=== PATIENT | male | born 1935 | race Caucasian/White ===

== ENCOUNTER → 2017-06-12 | Outpatient (CLI) | payer MEDICARE ==
[2014-09-18 02:22] VITALS: BP 144/75
[~2017-06-12] MED LIST: AMLO5TAB2 PO; ATORVASTATIN CA80 MG PO; FLUT16SP21 NS; GABA-585 PO; INSU100I11 SQ; LORA10TA3 PO; LOSA1TAB25 PO; METO-239 PO; TRIA15CR50 TP
--- NOTE | 2017-06-12 17:13 | RAD ---
CT study of the right foot without contrast Clinical indications: Open wound of the right foot. Technique: Noncontrast helical CT scanning of the right foot was performed. Multiplane 2-D reconstructions were generated. PQRS Compliance Statement: One or more of the following individualized dose reduction techniques were utilized for this examination: 1. Automated exposure control 2. Adjustment of the mA and/or kV according to patient size 3. Use of iterative reconstruction technique Comparison: No previous CT or MRI available. Findings: Fourth and fifth digits have been amputated at the level of the distal metatarsals. No osteolytic process is seen. Generalized osteopenia is evident. No acute fracture or dislocation is evident. Small plantar spur of the calcaneus is seen. Calcification of the plantar fascia is seen which may represent plantar fasciitis. Plantar fascia appears intact. The Achilles tendon appears intact. No tenosynovitis is seen. No soft tissue abscess or soft tissue mass is evident. There is subcutaneous soft tissue edema more prominently seen dorsally which may be secondary to cellulitis. IMPRESSION: Dorsal cellulitis. No osteomyelitis or soft tissue abscess is seen.
== END | disposition home or self-care (01) ==
LOC: CT 15:07
PROVIDERS: ATTEND Nurse Practitioner Family
DX: S91.301A Unspecified open wound, right foot, initial encounter (principal); L03.818 Cellulitis of other sites; M85.871 Other specified disorders of bone density and structure, right ankle and foot; M77.31 Calcaneal spur, right foot; X58.XXXA Exposure to other specified factors, initial encounter; Y93.89 Activity, other specified; Y92.89 Other specified places as the place of occurrence of the external cause; Y99.8 Other external cause status
CPT/HCPCS: 73700

== ENCOUNTER → 2017-08-05 | Outpatient (CLI) | payer MEDICARE ==
[2014-09-18 02:22] VITALS: BP 144/75
--- NOTE | 2017-08-05 16:28 | RAD ---
CT study of the soft tissues of the neck without contrast Clinical indications: Neck pain. Patient cannot turn the neck. Technique: Noncontrast helical CT scanning of the soft tissues of the neck from the base of skull down to the lung apices was performed. Without contrast, the sensitivity to detect organ pathology is decreased. PQRS Compliance Statement: One or more of the following individualized dose reduction techniques were utilized for this examination: 1. Automated exposure control 2. Adjustment of the mA and/or kV according to patient size 3. Use of iterative reconstruction technique Comparison: None available. Findings: No thyroid gland mass is seen. No soft tissue mass or enlarged cervical lymphadenopathy is evident. The parotid and submandibular salivary glands are unremarkable. The true and false focal cords and epiglottis and aryepiglottic folds and preepiglottic fat space are unremarkable. No prevertebral soft tissue swelling or soft tissue abscess is seen. The adenoids are not abnormally thickened. No abnormality of the palatine tonsils is seen. No lung apical infiltrate is seen. No osteolytic process is seen. There is mild mucosal thickening of the floor of the left maxillary sinus which measures 10 mm in thickness. Minimal mucosal thickening of the floor of the right axillary sinus is seen. IMPRESSION: Unremarkable study.
== END | disposition home or self-care (01) ==
LOC: CT 12:52
PROVIDERS: ATTEND Specialist
DX: M54.2 Cervicalgia (principal)
CPT/HCPCS: 70490

== ENCOUNTER 2018-05-14 08:10 | Inpatient (IN) | payer MEDICARE ==
[~2018-05-14] VITALS: Ht 180.3 cm; Wt 78.5 kg
[~2018-05-14 08:10] MED LIST changes: -AMLO5TAB2 PO; +AMLO5TAB7 PO
[2018-05-14] MEDS ORDERED: IV NORMAL SALINE 1,000ML 1,000 ML IV ONE (08:15)
[2018-05-14] MEDS ORDERED: METO25TA2 PO (08:30)
[2018-05-14] MEDS ORDERED: LOSA100T7 PO (08:31)
[2018-05-14] MEDS ORDERED: HYDR12.58 PO (08:31)
[2018-05-14] MEDS ORDERED: AMLO10TA6 PO (08:32)
[2018-05-14] MEDS ORDERED: GABA600T2 PO (08:33)
[2018-05-14] MEDS ORDERED: GABA-585 PO (08:33)
[2018-05-14] MEDS ORDERED: ASPI-630 PO (08:34)
--- NOTE | 2018-05-14 08:34 | PHYS DOC ---
Past History Past Medical History: Diabetes, High Cholesterol, Hypertension Past Surgical History: Other Alcohol Use: None Drug Use: None Adult General Chief Complaint Chief Complaint: fall HPI HPI 83-year-old male presents via EMS for suspected fall at home. History is provided by the patient and EMS. The patient was noted to be at baseline at 9 PM last night. His son checked on him and (8:30. The patient had not taken his evening meds at that time. EMS notes he did not take his meds last night or this morning. When the son went back to check on him this morning, he found him on the floor, he called EMS. When EMS arrived they the patient seemed to be just in front of his wheelchair. It appears as though he fell out of his wheelchair coming out of the bathroom. There is urine on his clothing. The patient was alert and able to answer some questions. When I talk to the patient he knows his name, location, month and year. He states he is unsure what happened this morning. I asked him with the first thing he remembers this morning was any since waking up in his bed. Patient reports at the scene seems unlikely that he fell after waking up this morning. He appeared to have been on the floor for some time. He denies any pain, shortness of breath, chest pain. The patient lives at home with his . His does admit to the hospital a few days ago as he is home alone overnight. His son tells me that he fell 3 times yesterday without injury. Review of Systems Review of Systems Constitutional: Denies fever or chills [] Eyes: Denies change in visual acuity, redness, or eye pain [] HENT: Denies nasal congestion or sore throat [] Respiratory: Denies cough or shortness of breath [] Cardiovascular: No additional information not addressed in HPI [] GI: Denies abdominal pain, nausea, vomiting, bloody stools or diarrhea [] : Denies dysuria or hematuria [] Musculoskeletal: Denies back pain or joint pain [] Integument: Denies rash or skin lesions [] Neurologic: Denies headache, focal weakness or sensory changes [] Endocrine: Denies polyuria or polydipsia [] All other systems were reviewed and found to be within normal limits, except as documented in this note. Current Medications Current Medications Current Medications Medications (Trade) Dose Ordered Sig/Amber Start Time Stop Time Status Last Admin Dose Admin Sodium Chloride 1,000 ml @ 1,000 mls/hr 1X ONCE 05/14/18 08:15 05/14/18 09:14 UNV Allergies Allergies Allergies Coded Allergies Type Severity Reaction Last Updated Verified No Known Drug Allergies 09/18/14 No Physical Exam Physical Exam Constitutional: Well developed, well nourished, no acute distress, non-toxic appearance. [] HENT: Normocephalic, atraumatic, bilateral external ears normal, oropharynx moist, no oral exudates, nose normal. [] Eyes: PERRLA, EOMI, conjunctiva normal, no discharge. [] Neck: Normal range of motion, no tenderness, supple, no stridor. [] Cardiovascular:Heart rate regular rhythm, no murmur [] Lungs & Thorax: Bilateral breath sounds clear to auscultation [] Abdomen: Bowel sounds normal, soft, no tenderness, no masses, no pulsatile masses. [] Skin: Warm, dry, no erythema, no rash. [] Back: No tenderness, no CVA tenderness. [] Extremities: Left leg [id number] amputation. Right lower leg superficial skin breakdown[] Neurologic: Alert and oriented X 3, normal motor function, normal sensory function, no focal deficits noted. [] Psychologic: Affect normal, mood normal. [] EKG EKG Sinus rhythm, rate 88, left axis, no ST elevations or depressions.[] Radiology/Procedures Radiology/Procedures [] Impressions: CT head without intravenous contrast History: Fall previous day, altered mental status. Comparison: CT head October 18, 2011. Technique: Axial images are obtained of the head from the skull base through the vertex without IV contrast. Exposure: One or more of the following individualized dose reduction techniques were utilized for this examination: 1. Automated exposure control 2. Adjustment of the mA and/or kV according to patient size 3. Use of iterative reconstruction technique Findings: The ventricles are appropriate in size, shape, and location for the patient's age. No obvious intracranial mass, mass-effect, midline shift, hemorrhage or obvious acute infarction is identified. Basilar cisterns are patent. Patchy, nonspecific white matter low-attenuation seen, probably from chronic microvascular ischemic disease. Bone windows demonstrate no acute calvarial abnormality. Mild ethmoid and maxillary sinus mucosal disease is seen. Impression: 1. No acute intracranial process. Please note that CT can be relatively insensitive to acute ischemic infarction for up to 24 hours after symptom onset. 2. Nonspecific white matter changes, probably from chronic microvascular ischemic disease. Electronically signed by: Rashel Chin MD (05/14/2018 9:12 AM) [place] [id number] DICTATED AND SIGNED BY: RASHEL CHIN MD DATE: 05/14/18 0908 CC: TRAY WALTON DO; HAYES WILLIAMSON MD ~ Portable chest, 05/14/2018: HISTORY: Fall Comparison is made to a study from 10/27/2010. There has been a previous median sternotomy. The patient is rotated to the left. The heart size and pulmonary vascularity are normal. There is a gas-containing retrocardiac density just left of midline suggesting a hiatal hernia. No pulmonary consolidation is seen. There is no evidence of pleural fluid or pneumothorax. The bony structures are demineralized. IMPRESSION: 1. Probable small hiatal hernia. 2. No acute cardiopulmonary abnormality is detected. Electronically signed by: Cecilio Rand MD (05/14/2018 9:13 AM) [facility] DICTATED AND SIGNED BY: CECILIO RAND MD DATE: 05/14/1811 CC: TRAY WALTON DO; HAYES WILLIAMSON MD Course & Med Decision Making Course & Med Decision Making Pertinent Labs and Imaging studies reviewed. (See chart for details) The patient's EKG is unremarkable. His labs show a hemoglobin of 7.9. My only previous for comparison is 3 years ago and it was 12.6. His urinalysis is suggestive of infection. I will treat with 1 g of Rocephin in the ED. Patient is very sleepy. I discussed the case with Dr. Morley and he has accepted the patient for admission. The patient's CK is 1338. He was given 1L normal saline in the ED. [] Dragon Disclaimer Dragon Disclaimer This electronic medical record was generated, in whole or in part, using a voice recognition dictation system. Departure Departure: Referrals: HAYES WILLIAMSON MD (PCP) TRAY WALTON DO May 14, 2018 08:33
--- NOTE | 2018-05-14 08:36 | EKG ---
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 Electronically Signed On 05-14-2018 9:55:39 MEDIA SERVICES COORDINATOR by Esteban Anderson
[2018-05-14 08:53] LABS: BASO % 1 % (0-3); EOS # 0.1 x10^3/uL (0.0-0.7); EOS % 1 % (0-3); HEMATOCRIT 25.4 % (39.0-53.0); HEMOGLOBIN 7.9 g/dL (13.0-17.5); LYMPH # 0.7 x10^3/uL (1.0-4.8); LYMPH % 9 % (24-48); MEAN CORPUSCULAR HEMOGLOBIN 21 pg (25-35); MEAN CORPUSCULAR HGB CONC 31 g/dL (31-37); MEAN CORPUSCULAR VOLUME 68 fL (79-100); MONO # 0.6 x10^3/uL (0.0-1.1); MONO % 8 % (0-9); NEUT # 6.7 x10^3uL (1.8-7.7); NEUT % 82 % (31-73); PLATELET COUNT 280 x10^3/uL (140-400); RED BLOOD COUNT 3.73 x10^6/uL (4.30-5.70); RED CELL DISTRIBUTION WIDTH 18.4 % (11.5-14.5); WHITE BLOOD COUNT 8.2 x10^3/uL (4.0-11.0)
[2018-05-14 09:05] LABS: ALBUMIN 3.3 g/dL (3.4-5.0); ALBUMIN/GLOBULIN RATIO 0.9 (1.0-1.7); CALCIUM 8.3 mg/dL (8.5-10.1); CREATININE 1.1 mg/dL (0.7-1.3); GFR 64.1; POTASSIUM 3.5 mmol/L (3.5-5.1); TOTAL BILIRUBIN 0.4 mg/dL (0.2-1.0); TOTAL PROTEIN 7.1 g/dL (6.4-8.2)
--- NOTE | 2018-05-14 09:15 | RAD ---
CT head without intravenous contrast History: Fall previous day, altered mental status. Comparison: CT head October 18, 2011. Technique: Axial images are obtained of the head from the skull base through the vertex without IV contrast. Exposure: One or more of the following individualized dose reduction techniques were utilized for this examination: 1. Automated exposure control 2. Adjustment of the mA and/or kV according to patient size 3. Use of iterative reconstruction technique Findings: The ventricles are appropriate in size, shape, and location for the patient's age. No obvious intracranial mass, mass-effect, midline shift, hemorrhage or obvious acute infarction is identified. Basilar cisterns are patent. Patchy, nonspecific white matter low-attenuation seen, probably from chronic microvascular ischemic disease. Bone windows demonstrate no acute calvarial abnormality. Mild ethmoid and maxillary sinus mucosal disease is seen. Impression: 1. No acute intracranial process. Please note that CT can be relatively insensitive to acute ischemic infarction for up to 24 hours after symptom onset. 2. Nonspecific white matter changes, probably from chronic microvascular ischemic disease. Electronically signed by: Rashel Boyle MD (05/14/2018 9:12 AM) [facility]
--- NOTE | 2018-05-14 09:17 | RAD ---
Portable chest, 05/14/2018: HISTORY: Fall Comparison is made to a study from 10/27/2010. There has been a previous median sternotomy. The patient is rotated to the left. The heart size and pulmonary vascularity are normal. There is a gas-containing retrocardiac density just left of midline suggesting a hiatal hernia. No pulmonary consolidation is seen. There is no evidence of pleural fluid or pneumothorax. The bony structures are demineralized. IMPRESSION: 1. Probable small hiatal hernia. 2. No acute cardiopulmonary abnormality is detected. Electronically signed by: Cecilio Rand MD (05/14/2018 9:13 AM) [facility]
[2018-05-14 09:42] LABS: ANISOCYTOSIS SLIGHT; HYPOCHROMIA MOD; MICROCYTOSIS MOD; OVALOCYTES OCC; PLT ESTIMATE ADEQUATE (ADEQUATE); STOMATOCYTES PRESENT; TARGET CELLS PRESENT
[2018-05-14 09:43] LABS: ACANTHOCYTES PRESENT
[2018-05-14 10:38] LABS: CLARITY,URINE CLOUDY; COLOR,URINE YELLOW; GLUCOSE,URINE 250 mg/dL (NEG)
[2018-05-14 10:39] LABS: BACTERIA,URINE MANY /HPF (0-FEW); BILIRUBIN,URINE NEG (NEG); NITRITE,URINE NEG (NEG); SQUAMOUS EPITHELIAL CELL,UR OCC /LPF; UROBILINOGEN,URINE 1 mg/dL (0.2 mg/dL)
[2018-05-14] MEDS ORDERED: IV NORMAL SALINE 50ML 50 ML ONE (10:54)
[2018-05-14] MEDS ORDERED: cefTRIAXone SODIUM 1 GM VIAL IV ONE (10:54)
[2018-05-14] MEDS ORDERED: ONDANSETRON PF 4 MG/2 ML VIAL. IV PRN (11:45)
[2018-05-14] MEDS ORDERED: IV NORMAL SALINE 1,000ML 1,000 ML IV SCH (11:45)
[2018-05-14 12:43] VITALS: BP 134/62
[2018-05-14] MEDS ORDERED: INSU100C4 SQ (13:14)
[2018-05-14] MEDS ORDERED: INSU100I13 SQ (13:14)
[2018-05-14] MEDS ORDERED: NON FORMULARY ITEM (Insulin Aspart (Novolog) 1 UNIT) SQ PRN (15:00)
[2018-05-14] MEDS: IV NORMAL SALINE 1,000ML 1,000 ML IV SCH ×2 (15:15→19:17)
[2018-05-14] MEDS ORDERED: DEXTROSE 50% 25 GM / 50ML DISP.SYRIN. IV PRN (15:15)
[2018-05-14 15:18] VITALS: BP 149/64
[2018-05-14 15:35] LABS: BASO % 1 % (0-3); EOS # 0.1 x10^3/uL (0.0-0.7); EOS % 1 % (0-3); HEMATOCRIT 25.8 % (39.0-53.0); HEMOGLOBIN 7.9 g/dL (13.0-17.5); LYMPH # 0.7 x10^3/uL (1.0-4.8); LYMPH % 11 % (24-48); MEAN CORPUSCULAR HEMOGLOBIN 21 pg (25-35); MEAN CORPUSCULAR HGB CONC 31 g/dL (31-37); MEAN CORPUSCULAR VOLUME 69 fL (79-100); MONO # 0.5 x10^3/uL (0.0-1.1); MONO % 7 % (0-9); NEUT # 5.6 x10^3uL (1.8-7.7); NEUT % 81 % (31-73); PLATELET COUNT 286 x10^3/uL (140-400); RED BLOOD COUNT 3.73 x10^6/uL (4.30-5.70); RED CELL DISTRIBUTION WIDTH 18.6 % (11.5-14.5)
[2018-05-14 16:00] LABS: ALBUMIN 3.2 g/dL (3.4-5.0); ALBUMIN/GLOBULIN RATIO 0.9 (1.0-1.7); CALCIUM 8.1 mg/dL (8.5-10.1); CREATININE 0.9 mg/dL (0.7-1.3); GFR 80.8; TOTAL BILIRUBIN 0.4 mg/dL (0.2-1.0); TOTAL PROTEIN 6.9 g/dL (6.4-8.2)
[2018-05-14] MEDS ORDERED: GABAPENTIN 300 MG CAPSULE. PO ONE (16:00)
--- NOTE | 2018-05-14 16:08 | HP ---
ADMIT DATE: 05/14/2018 HISTORY OF PRESENT ILLNESS: The patient is an 83-year-old male patient who was brought to the Emergency Room by emergency medical service personnel for suspected fall at home. The patient's son said that he has a total of 4 falls over the last 24 hours. He apparently was found by the [employer] on the floor and his son found him twice, one this morning when he went to check on him. The emergency medical service personnel noted that he did not take his medication last night or this morning and his son found him on the floor this morning and called emergency medical services. On arrival, the patient seemed to be just in front of his wheelchair. It appears that he fell out of his wheelchair coming out of the bathroom. There is urine on his clothing. He was alert and able to answer some questions. He basically was evaluated in the Emergency Room and was admitted for further evaluation. He was noted to have elevated creatinine kinase and was noted also to be anemic. His hemoglobin has dropped to 7.9 compared to 12.6 about 3 years ago and his urinalysis according to ER physician is suggestive of urinary tract infection and in fact, he was started on IV Rocephin. His son stated that since the admission of his to the hospital, his memory simply has worsened dramatically. However, on questioning him, the patient denied any complaint. PAST MEDICAL HISTORY: Significant for type 2 diabetes mellitus, hypertension, hyperlipidemia, coronary artery disease status post coronary artery bypass graft surgery about 8 years ago. He has left below-knee amputation and he has tremors in his hands which seemed to be more consistent with Parkinson's disease rather than essential tremors. PAST SURGICAL HISTORY: Significant for bilateral cataract extraction, tonsillectomy, cholecystectomy, left below-knee amputation, and colonoscopy x 2. ALLERGIES: He has no known drug allergies. MEDICATIONS: He is currently on following medications: He is currently on loratadine 10 mg once a day, atorvastatin calcium 80 mg at bedtime, metoprolol succinate 12.5 mg once a day, amlodipine besylate 10 mg once a day, losartan potassium 100 mg once a day, aspirin 81 mg once a day, gabapentin 100 mg twice a day, gabapentin 600 mg 4 times a day. He is on hydrochlorothiazide 12.5 mg once a day and he is on NovoLog insulin as per insulin sliding scale before meals and Lantus insulin 17 units at bedtime. FAMILY HISTORY: He has 2 brothers who are older, 1 older sister, and 1 younger sister. His father at the age of 73 because of myocardial infarction. His mother at the age of 44 because of congestive heart failure. SOCIAL HISTORY: He is and has been with his for the last 60 years. He has 2 sons and 2 daughters. He quit smoking in 1988. He drinks alcohol very occasionally. 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 REVIEW OF SYSTEMS: The patient denied any blurring of vision. He has bilateral cataract extraction and he gets injection in his eyes indicating probably it has macular degeneration. Denied any glaucoma. Denied any earache, tinnitus, or sensorineural deafness. Denied any nosebleeds, stuffy nose, or postnasal drip. Denied any sore throat, sore tongue, toothache, hoarseness of voice, or difficulty swallowing. Denied any weight loss or weight gain. Denied any hematemesis, melena, or hematochezia. Denied any dysuria, frequency, or hematuria. Denied any chest pain or shortness of breath. PHYSICAL EXAMINATION: GENERAL: When I examined him, he was resting slightly propped up in bed, in no apparent distress. He was pale, but no jaundice, cyanosis, or thyromegaly. No jugular venous distention. No lower limb edema. VITAL SIGNS: His heart rate was 84, blood pressure was 134/62, temperature was 97.5, respiratory rate was 20, and oxygen saturation was 92% on room air. HEAD, EYES, EARS, NOSE, AND THROAT: Showed normocephalic, atraumatic. NECK: Supple. HEART: Showed normal first and second heart sounds with no gallop, rub, or murmur. CHEST: Clear to auscultation. No crepitation or rhonchi. ABDOMEN: Scaphoid, soft, nontender. NEUROLOGIC: He is awake, alert, responding appropriately. All cranial nerves intact. He moves his upper extremities without difficulty, has left below-knee amputation, and he has multiple toes amputated from his right foot. LABORATORY DATA: His lab work on arrival to the Emergency Room showed that his white cell count was 8200, hemoglobin 7.9, hematocrit was 25.4, MCV 68, and a platelet count of 280,000 with normal manual differential. His chemistries showed a serum sodium 139, potassium 3.5, chloride 102, bicarbonate 24, anion gap of 13, BUN 29, creatinine 1.1, estimated GFR was 64 mL per minute. His glucose was 230, calcium was 8.3. Total bilirubin, AST, ALT, alkaline phosphatase were normal. Total protein was 7.1, albumin was 3.3. His CK was 1338 and lactic acid was only 0.9. His urinalysis showed the urine was yellow, cloudy with a pH of 6, specific gravity 1.015. There was a small amount of protein. The urine was positive for glucose. There was large amount of ketones, moderate amount of blood, negative for nitrites, trace amount of leukocyte esterase, 1-2 rbc's, 5-10 wbc's, and too many bacteria. He did have a CT scan of the head, which basically showed that the ventricles are appropriate in size, shape, and location for the patient's age. No obvious intracranial mass, mass effect, midline shift, hemorrhage, or obvious acute infarction identified. Basilar cisterns are patent. Patchy nonspecific white matter low attenuation seen probably from chronic microvascular ischemic disease. Bone windows demonstrate no acute calvarial abnormality. Mild ethmoid and maxillary sinus mucosal disease seen and the impression is that the patient has no acute intracranial process. His chest x-ray showed that there has been previous median sternotomy. The patient is rotated to the left. The heart size and pulmonary vascularity are normal. There is gas containing retrocardiac density just left to midline suggesting hiatal hernia. No pulmonary consolidation is seen. There is no evidence of pleural fluid or pneumothorax. The bony structures are demineralized. SUMMARY: This is an 83-year-old male patient who came in with recurrent falls. He has fallen about 4 times over the last 24-hour period. According to his son, he has worsening of his short-term memory. His lab work showed that he is anemic with a hemoglobin of 7.9, hematocrit 25, and MCV of 68 indicating that he has probably iron deficiency anemia compared to his hemoglobin about 3 years ago. He has mild impaired kidney function and slightly elevated CK of 1338. He has probably urinary tract infection. PLAN: We will start him on IV fluid and will continue with IV antibiotic in the form of Rocephin. We will get physical and occupational therapy to evaluate the patient and decide on further management accordingly. PATY ZELAYA MD DR: DAYNA/favio JOB#: [id number] / [id number]
[2018-05-14] MEDS: INSULIN LISPRO 300 UNITS/3 ML INSULN.PEN. SQ SCH (17:00)
[2018-05-14 19:15] VITALS: BP 158/73
[2018-05-14] MEDS: POTASSIUM CL 40MEQ IN 0.9%NACL 1,000 ML IV SCH (19:40)
[2018-05-14] MEDS: GABAPENTIN 300 MG CAPSULE. PO SCH (20:47)
[2018-05-14] MEDS: ATORVASTATIN CALCIUM 20 MG TABLET PO SCH (20:47)
[2018-05-14] MEDS: NYSTATIN TOPICAL POWDER 15GM BOTTLE. TP SCH (20:47)
[2018-05-14] MEDS: LACTOBACILLUS RHAMNOSUS GG 1 CAPSULE. PO SCH (20:47)
[2018-05-14] MEDS: GABAPENTIN 100 MG CAPSULE. PO SCH (20:47)
[2018-05-14] MEDS: INSULIN GLARGINE 300 UNITS/3 ML INSULN.PEN. SQ SCH (20:52)
[2018-05-14 22:15] LABS: FECAL OB PT NEGATIVE (NEG)
[2018-05-14 23:27] VITALS: BP 127/56
[2018-05-15] MEDS: POTASSIUM CL 40MEQ IN 0.9%NACL 1,000 ML IV SCH ×3 (05:40→20:49)
[2018-05-15 06:03] VITALS: BP 128/54
[2018-05-15 06:45] LABS: BASO % 1 % (0-3); EOS # 0.1 x10^3/uL (0.0-0.7); EOS % 2 % (0-3); HEMATOCRIT 23.9 % (39.0-53.0); HEMOGLOBIN 7.4 g/dL (13.0-17.5); LYMPH # 1.2 x10^3/uL (1.0-4.8); LYMPH % 19 % (24-48); MEAN CORPUSCULAR HEMOGLOBIN 21 pg (25-35); MEAN CORPUSCULAR HGB CONC 31 g/dL (31-37); MEAN CORPUSCULAR VOLUME 69 fL (79-100); MONO # 0.6 x10^3/uL (0.0-1.1); MONO % 10 % (0-9); NEUT # 4.3 x10^3uL (1.8-7.7); NEUT % 68 % (31-73); PLATELET COUNT 277 x10^3/uL (140-400); RED BLOOD COUNT 3.48 x10^6/uL (4.30-5.70); RED CELL DISTRIBUTION WIDTH 18.2 % (11.5-14.5); WHITE BLOOD COUNT 6.3 x10^3/uL (4.0-11.0)
[2018-05-15 06:53] LABS: CALCIUM 7.7 mg/dL (8.5-10.1); CREATININE 0.9 mg/dL (0.7-1.3); GFR 80.8; POTASSIUM 3.5 mmol/L (3.5-5.1)
[2018-05-15] MEDS: INSULIN LISPRO 300 UNITS/3 ML INSULN.PEN. SQ SCH ×3 (08:00→16:55)
[2018-05-15] MEDS ORDERED: ASPIRIN 81 MG TAB.CHEW PO SCH (08:00)
[2018-05-15] MEDS: CETIRIZINE HCL 10 MG TABLET PO SCH (08:14)
[2018-05-15] MEDS: GABAPENTIN 300 MG CAPSULE. PO SCH ×4 (08:14→20:45)
[2018-05-15] MEDS: LACTOBACILLUS RHAMNOSUS GG 1 CAPSULE. PO SCH ×2 (08:14→20:45)
[2018-05-15] MEDS: amLODIPine BESYLATE 10 MG TABLET PO SCH (08:14)
[2018-05-15] MEDS: GABAPENTIN 100 MG CAPSULE. PO SCH ×2 (08:14→20:45)
[2018-05-15] MEDS: METOPROLOL SUCC 24HR ER 25 MG TAB.ER.24H. PO SCH (08:15)
[2018-05-15] MEDS: LOSARTAN 50 MG TABLET. PO SCH (08:15)
[2018-05-15] MEDS ORDERED: hydroCHLOROthiazide 12.5 MG CAPSULE PO SCH (09:00)
[2018-05-15] MEDS: NYSTATIN TOPICAL POWDER 15GM BOTTLE. TP SCH ×2 (09:00→20:56)
[2018-05-15] MEDS: IV NORMAL SALINE 1,000ML 1,000 ML IV SCH ×2 (11:03→21:15)
[2018-05-15 11:20] VITALS: BP 132/54
[2018-05-15] MEDS ORDERED: METOCLOPRAMIDE HCL 10 MG/2 ML VIAL. IV PRN (14:00)
[2018-05-15 14:29] LABS: ALBUMIN 2.6 g/dL (3.4-5.0); ALBUMIN/GLOBULIN RATIO 0.7 (1.0-1.7); CALCIUM 7.5 mg/dL (8.5-10.1); CREATININE 0.9 mg/dL (0.7-1.3); GFR 80.8; POTASSIUM 3.7 mmol/L (3.5-5.1); TOTAL BILIRUBIN 0.3 mg/dL (0.2-1.0); TOTAL PROTEIN 6.1 g/dL (6.4-8.2)
[2018-05-15 16:26] VITALS: BP 117/50
[2018-05-15 20:00] VITALS: BP 154/62
[2018-05-15] MEDS: PANTOPRAZOLE IV 40 MG VIAL. IVP SCH (20:44)
[2018-05-15] MEDS: ATORVASTATIN CALCIUM 20 MG TABLET PO SCH (20:45)
[2018-05-15] MEDS: INSULIN GLARGINE 300 UNITS/3 ML INSULN.PEN. SQ SCH (20:47)
--- NOTE | 2018-05-15 21:27 | PN ---
DATE: 05/15/2018 SUBJECTIVE: The patient is resting slightly propped up in bed, in no apparent respiratory distress. He apparently has recurrent bouts of nausea and vomiting. He ate only a small amount of his breakfast and did not eat any of his lunch. He threw up all his medication; however, on questioning him further, he denied any abdominal pain. Denied any chest pain. OBJECTIVE: GENERAL: When I examined him, he looked pale, but not jaundiced, cyanosed. No lymphadenopathy, no thyromegaly. No jugular venous distention. No limb edema. VITAL SIGNS: His heart rate was 80, blood pressure was 132/54, temperature was 98.1, respiratory rate was 20, and oxygen saturation was 94% on room air. HEAD, EYES, EARS, NOSE AND THROAT: Showed normocephalic, atraumatic. NECK: Supple. HEART: Showed normal first and second sounds. No gallop, rub or murmur. CHEST: Clear to auscultation. No crepitation or rhonchi. ABDOMEN: Distended, soft, nontender. No guarding or rigidity. No organomegaly. Hernial orifice intact. Bowel sounds normal. NEUROLOGIC: He was awake, alert, responding appropriately. All cranial nerves intact. He moves his upper extremities without difficulty. He is mostly bedbound, chair bound as he has a left below-knee amputation. He has prominent parkinsonian tremor. His intake was 1450, no output was recorded. LABORATORY DATA: This morning showed a serum sodium of 141, potassium 3.5, chloride 107, bicarbonate 27, anion gap of 7, BUN 17, creatinine 0.9, estimated GFR was 81 mL per minute, his glucose was 79, calcium was 7.7. Total serum iron 22, TIBC was 267, iron saturation was 8%. Serum ferritin was 22 and lactic acid was only 0.9 and calcium was 8.1. His white cell count was 6300, hemoglobin 7.4, hematocrit 24, MCV 69, and platelet count 177. His stool for occult blood was negative. His urinalysis showed that he was positive for leukocyte esterase, 5-10 wbc's and too many bacteria and he is already on IV antibiotic in the form of Rocephin 1 gram IV daily. PLAN: I have discontinued his hydrochlorothiazide and I did start him on Reglan as he is diabetic and probably has diabetic gastroparesis as well as Protonix. I did send blood for serum lipase, liver enzymes and lactic acid and LDH. ASSESSMENT: Other medical problems include recurrent fall. He fell about 4 times prior to admission. Other medical problems include anemia that is microcytic hypochromic, type 2 diabetes mellitus, hypertension, hyperlipidemia, coronary artery disease status post coronary artery bypass graft surgery, has left knee amputation and has tremors that seemed to be more consistent with Parkinson's disease rather than essential tremors. PATY ZELAYA MD DR: DAYNA/favio JOB#: [id number] / [id number]
[2018-05-15 22:29] VITALS: BP 139/64
[2018-05-16] VITALS (9 sets, daily range): BP systolic 111–148; BP diastolic 49–76
[2018-05-16 06:39] LABS: HEMATOCRIT 21.7 % (39.0-53.0); RED BLOOD COUNT 3.14 x10^6/uL (4.30-5.70); RED CELL DISTRIBUTION WIDTH 18.5 % (11.5-14.5); WHITE BLOOD COUNT 6.2 x10^3/uL (4.0-11.0)
[2018-05-16 06:42] LABS: HEMOGLOBIN 6.7 g/dL (13.0-17.5)
[2018-05-16 06:55] LABS: ALBUMIN 2.4 g/dL (3.4-5.0); ALBUMIN/GLOBULIN RATIO 0.8 (1.0-1.7); CALCIUM 7.5 mg/dL (8.5-10.1); GFR 71.5; POTASSIUM 3.8 mmol/L (3.5-5.1); TOTAL BILIRUBIN 0.4 mg/dL (0.2-1.0); TOTAL PROTEIN 5.6 g/dL (6.4-8.2)
[2018-05-16] MEDS: IV NORMAL SALINE 1,000ML 1,000 ML IV SCH (07:15)
[2018-05-16] MEDS: INSULIN LISPRO 300 UNITS/3 ML INSULN.PEN. SQ SCH ×3 (07:56→17:00)
[2018-05-16] MEDS: amLODIPine BESYLATE 10 MG TABLET PO SCH (09:21)
[2018-05-16] MEDS: LACTOBACILLUS RHAMNOSUS GG 1 CAPSULE. PO SCH ×2 (09:21→20:42)
[2018-05-16] MEDS: LOSARTAN 50 MG TABLET. PO SCH (09:22)
[2018-05-16] MEDS: METOPROLOL SUCC 24HR ER 25 MG TAB.ER.24H. PO SCH (09:22)
[2018-05-16] MEDS: CETIRIZINE HCL 10 MG TABLET PO SCH (09:22)
[2018-05-16] MEDS: GABAPENTIN 100 MG CAPSULE. PO SCH ×2 (09:23→20:41)
[2018-05-16] MEDS: PANTOPRAZOLE IV 40 MG VIAL. IVP SCH ×2 (09:25→20:41)
[2018-05-16] MEDS: GABAPENTIN 300 MG CAPSULE. PO SCH ×4 (09:28→20:41)
[2018-05-16] MEDS: NYSTATIN TOPICAL POWDER 15GM BOTTLE. TP SCH ×2 (09:29→20:42)
[2018-05-16] MEDS: POTASSIUM CL 40MEQ IN 0.9%NACL 1,000 ML IV SCH ×2 (10:15→20:41)
[2018-05-16] MEDS: rOPINIRole 0.5 MG TABLET. PO SCH ×3 (10:26→20:41)
[2018-05-16] MEDS ORDERED: IRON SUCROSE COMPLEX 200 MG in IV NORMAL SALINE 100ML 100 ML IV ONE (12:00)
--- NOTE | 2018-05-16 12:49 | CONS ---
DATE OF CONSULTATION: 05/15/2018 NEUROLOGY CONSULTATION REASON FOR CONSULTATION: Acute mental status changes. REFERRING PHYSICIAN: Feliberto Morley MD HISTORY OF PRESENT ILLNESS: This is an 83-year-old right-handed male who was admitted through Emergency Room after he presented with frequent falls for the last few days. According to the patient, he has had several falls in the last 3 days, but the day of admission, which was on 05/14/2018, he stated he has 2 falls while he is trying to knot picker cloth something from the floor, he slipped out of his chair to the floor. He denies any head injuries or seizure activities or loss of consciousness. He denies any other symptoms preceding the falls as dizziness or chest pain, shortness of breath, palpitations, or vertigo. The patient did recall the event. In the last fall, he was found by his son on the floor close to his wheelchair. EMS was activated and found the patient alert and oriented, but he has urine in his clothes. No seizure activity has been reported or weakness. The patient was brought to Emergency Room when he was found to be anemic and had urinary tract infections. Currently, the patient denies headaches, visual disturbances, nausea, vomiting, chest pain, shortness of breath or palpitation, dysarthria, dysphagia, or vertigo. PAST MEDICAL HISTORY: Significant for diabetes mellitus, hypertension, hyperlipidemia, coronary artery disease status post coronary artery bypass graft approximately 8 years ago, status post below left knee amputation, intermittent tremor of the hands, which usually aggravated by using his hands and not resting tremor. PAST SURGICAL HISTORY: Significant for cholecystectomy, tonsillectomy, left below-knee amputation, and cataract extraction. SOCIAL HISTORY: The patient is . He lives with his at home. He has 2 sons and 2 daughters. He denies smoking, but he drinks alcohol occasionally. FAMILY HISTORY: His father at the age of 73 from myocardial infarction. His mother at the age of 44 because of congestive heart failure. CURRENT HOME MEDICATIONS: Loratadine 10 mg daily, gabapentin 600 mg 4 times daily, hydrochlorothiazide 12.5 mg daily, insulin Lantus 17 units at bedtime, insulin NovoLog on sliding scales, losartan 100 mg daily, gabapentin 100 mg twice daily, Lipitor 80 mg at bedtime. ALLERGIES: No known drug allergies. REVIEW OF SYSTEMS: A 10-point review of system was performed as mentioned above in history of present illness, otherwise unremarkable. PHYSICAL EXAMINATION: GENERAL: A well-developed, well-nourished man, not in acute distress. He weighs 168 pounds. VITAL SIGNS: Blood pressure 128/54, respiratory rate 20, pulse is 80 and regular, temperature 98.1, oxygen saturation is 94% on 2 liters by nasal cannula. HEENT: Normocephalic, atraumatic, otherwise unremarkable. NECK: Supple, negative for carotid bruit, lymphadenopathy, or thyromegaly. LUNGS: Clear to A and P. CARDIOVASCULAR: Regular rhythm, normal S1, S2. There is no S3, S4 or murmur. ABDOMEN: Soft. Bowel sounds positive. EXTREMITIES: The patient has a below left knee amputation. Otherwise, negative for cyanosis, clubbing, or pitting edema. NEUROLOGICAL: MENTAL STATUS: The patient is alert and oriented x 3. The speech is fluent. There is no language dysfunction. The patient recalls 2/3 immediately and 1/3 after 1 and 3 minutes. Judgment and abstracting thinking are normal. The patient denies hallucination or delusion. CRANIAL NERVES: Visual salgado are full. The pupils are reactive to light and accommodation. The extraocular movements are intact. There is no nystagmus. There is no facial motor or sensory deficit. Hearing is intact bilaterally. The palate is elevated symmetrically. Sternocleidomastoid muscles are powerful bilaterally. The patient shrugs his shoulders symmetrically and protrudes his tongue in the midline without fasciculation or atrophy. MOTOR: No focal muscle bulk was seen. The tone is normal. The strength is 4/5 throughout. The patient has intermittent postural and kinetic tremors of the upper extremities. Sensory examination revealed diminished pinprick and light touch senses in distal lower extremities. Deep tendon reflexes were symmetric and hypoactive with absent Achilles responses. Gait not tested. LABORATORY DATA: CBC revealed white blood cells of 6.3 thousand, hemoglobin 7.4, hematocrit 23.9, platelet count 277,000 with differential of neutrophils at 68%. Chemistry revealed sodium of 140, potassium 3.7, chloride 106, CO2 26, BUN 16, creatinine 0.9, glucose 216, calcium 7.4. Liver enzymes, elevated AST. Lactic acid is 0.9. Urinalysis consistent with urinary tract infections. Stool occult blood is negative. DIAGNOSTIC: Initial nonenhanced head CT scan revealed no acute intracranial process, but shows a chronic microvascular ischemic disease. A chest x-ray, small hiatal hernia, otherwise unremarkable. IMPRESSION: 1. Frequent falls with possible syncope versus seizure. However, the patient denies any loss of consciousness. 2. Multiple medical problems include hypertension, hyperlipidemia, diabetes mellitus type 2, coronary artery disease, status post left [id number] amputation, and urinary tract infections. 3. Anemia, probably from chronic disease type. RECOMMENDATIONS: 1. Continue with current management initiated by Dr. Morley and treat the underlying urinary tract infection. 2. Workup for anemia. The patient might have chronic iron-deficiency anemia. M Alfonso KAY MD DR: VICTORIA/favio JOB#: [id number] / [id number]
[2018-05-16] MEDS: oxyCODONE/APAP 5/325 1 TAB TABLET PO PRN (15:10)
[2018-05-16 15:52] LABS: HEMATOCRIT 24.9 % (39.0-53.0); HEMOGLOBIN 7.7 g/dL (13.0-17.5)
--- NOTE | 2018-05-16 18:26 | PN ---
DATE: SUBJECTIVE: The patient denies any new medical or neurological complaints. He continues to have mild resting tremor of the hands, more prominent on the left side. He denies stiffness, headaches, visual disturbances, nausea, vomiting, chest pain, shortness of breath or palpitations. He also complains of intermittent numbness and paresthesia confined to stump. OBJECTIVE: GENERAL: Well-developed, well-nourished male, not in acute distress. VITAL SIGNS: Blood pressure 111/49, respiratory rate 20, pulse is 70, temperature is 98.4, oxygen saturation is 93% on 2 liters by nasal cannula. HEENT: Normocephalic, atraumatic, otherwise unremarkable. NECK: Supple. Negative for carotid bruit, lymphadenopathy or thyromegaly. LUNGS: Clear to A and P. CARDIOVASCULAR: Regular rate and rhythm, normal S1, S2. ABDOMEN: Soft. Bowel sounds positive. EXTREMITIES: Negative for cyanosis, clubbing or pitting edema, status post left below knee amputation. The right leg reveals skin redness. NEUROLOGIC: The patient is alert and oriented x 3. The speech is fluent. There is no language dysfunction. Memory, judgment, and abstract thinking all are fair. The patient denies hallucination or delusion. Cranial nerves are intact. Motor Examination: No focal muscle bulk was seen. The tone is normal. The strength is 4/5 throughout. Sensory examination revealed diminished pinprick and light touch senses in patchy distributions in both lower extremities and question in the right lower extremity and thumb. Deep tendon reflexes were hypoactive with absent right Achilles responses. LABORATORY DATA: CBC revealed white blood cells of 6.2 thousand, hemoglobin is markedly low at 6.7 with a hematocrit 21.7 and platelet count 268,000. Chemistry revealed sodium of 142, potassium 3.8, chloride 109, CO2 26, BUN 12, creatinine 1 and glucose ____, calcium 7.5. AST is high at 50. IMPRESSION: 1. Acute encephalopathy -- improved. 2. Frequent falls of unknown etiology. The patient stated he always slipped off his wheelchair when he tried to leaf size picker something from the floor. However, there is no clear history of seizure or syncope at this time. 3. Intermittent resting tremor of the distal upper extremity, more prominent on the left side may represent early parkinsonian tremor; however, the patient stated his tremor, more pronounced when uses his upper extremity. I did give him a cup of water to drink, but he did not have any obvious tremor as well. 4. Multiple medical problems include diabetes mellitus type 2, hypertension, hyperlipidemia, coronary artery disease status post coronary artery bypass graft and status post left below knee amputation and urinary tract infections. RECOMMENDATIONS: 1. We will continue with current management initiated by Dr. Morley. 2. We will start the patient on small dose of ropinirole 0.5 mg t.i.d. for resting tremor. Otherwise, will continue with current medication. M Alfonso KAY MD DR: VICTORIA/favio JOB#: [id number] / [id number]
[2018-05-16] MEDS ORDERED: ACETAMINOPHEN 325 MG TABLET PO ONE (18:55)
--- NOTE | 2018-05-16 20:19 | PN ---
DATE: 05/16/2018 SUBJECTIVE: The patient is sitting flat in his chair, comfortably in no apparent distress. He has no further episodes of nausea and vomiting. He apparently tolerated his breakfast this morning without any problem; however, he dropped his hemoglobin down to 6.7 and hematocrit 21.7. His first stool for occult blood was negative. He was seen by Dr. Friedman and apparently started him on ReQuip 3 times a day. PHYSICAL EXAMINATION: GENERAL: On examining him today, he looked well, pale, but no jaundice, cyanosis or thyromegaly. No jugular venous distention. No lower limb edema. VITAL SIGNS: His heart rate was 81, blood pressure was 114/76, temperature was 98.6, respiratory rate 20 and oxygen saturation was 94% on 1 liter of oxygen. HEAD, EYES, EARS, NOSE AND THROAT: Showed normocephalic, atraumatic. NECK: Supple. HEART: Showed normal first and second sounds. No gallop, rub or murmur. CHEST: Clear to auscultation. No crepitation or rhonchi. ABDOMEN: Distended, soft, nontender. NEUROLOGIC: He was awake, alert, responding appropriately. All cranial nerves are intact. He moves extremities without difficulty. He continued to have Parkinsonian tremors. He has left below-knee amputation; however, the patient has prosthesis and is able to walk with a walker. His intake over the last 24 hours was 3200, no output was recorded. LABORATORY DATA: His lab work this morning showed a white cell count of 6200, hemoglobin 6.7, hematocrit 21.7, MCV was 69 and platelet count 268,000. His chemistry showed a serum sodium 142, potassium 3.8, chloride 109, bicarbonate 26, anion gap of 7, BUN 12, creatinine 1. Estimated GFR was 71 mL per minute. His glucose was 57, calcium was 7.5. Total bilirubin, AST, ALT, alkaline phosphatase were normal. Total protein was 5.6, albumin 2.4. Urinalysis essentially showed that the patient has many bacteria, 5-10 wbc's, negative for nitrite. ASSESSMENT AND PLAN: Continue to transfuse. Recurrent bouts of nausea and vomiting with coffee-ground material for which the patient was kept n.p.o. yesterday. 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 His hemoglobin and hematocrit had dropped down and he is receiving now 1 unit of packed RBCs. Meanwhile, we will continue with ceftriaxone for urinary tract infection. Continue with physical and occupational therapy. PATY ZELAYA MD DR: DAYNA/favio JOB#: [id number] / [id number]
[2018-05-16] MEDS: INSULIN GLARGINE 300 UNITS/3 ML INSULN.PEN. SQ SCH (20:42)
[2018-05-16] MEDS: ATORVASTATIN CALCIUM 20 MG TABLET PO SCH (20:42)
[2018-05-17] MEDS: oxyCODONE/APAP 5/325 1 TAB TABLET PO PRN ×2 (00:22→08:27)
[2018-05-17] MEDS: POTASSIUM CL 40MEQ IN 0.9%NACL 1,000 ML IV SCH (05:54)
[2018-05-17 06:09] VITALS: BP 148/63
[2018-05-17 06:35] LABS: HEMATOCRIT 26.1 % (39.0-53.0); HEMOGLOBIN 8.1 g/dL (13.0-17.5); RED BLOOD COUNT 3.62 x10^6/uL (4.30-5.70); RED CELL DISTRIBUTION WIDTH 21.3 % (11.5-14.5); WHITE BLOOD COUNT 4.3 x10^3/uL (4.0-11.0)
[2018-05-17 06:49] LABS: ALBUMIN 2.2 g/dL (3.4-5.0); ALBUMIN/GLOBULIN RATIO 0.6 (1.0-1.7); CALCIUM 7.4 mg/dL (8.5-10.1); CREATININE 0.9 mg/dL (0.7-1.3); GFR 80.8; POTASSIUM 4.3 mmol/L (3.5-5.1); TOTAL BILIRUBIN 0.4 mg/dL (0.2-1.0); TOTAL PROTEIN 5.6 g/dL (6.4-8.2)
[2018-05-17] MEDS: INSULIN LISPRO 300 UNITS/3 ML INSULN.PEN. SQ SCH (08:00)
[2018-05-17] MEDS: LOSARTAN 50 MG TABLET. PO SCH (08:27)
[2018-05-17] MEDS: rOPINIRole 0.5 MG TABLET. PO SCH (08:28)
[2018-05-17] MEDS: GABAPENTIN 100 MG CAPSULE. PO SCH (08:28)
[2018-05-17] MEDS: LACTOBACILLUS RHAMNOSUS GG 1 CAPSULE. PO SCH (08:28)
[2018-05-17] MEDS: GABAPENTIN 300 MG CAPSULE. PO SCH (08:28)
[2018-05-17 08:29] VITALS: BP 148/63
[2018-05-17] MEDS: amLODIPine BESYLATE 10 MG TABLET PO SCH (08:29)
[2018-05-17] MEDS: CETIRIZINE HCL 10 MG TABLET PO SCH (08:29)
[2018-05-17] MEDS: METOPROLOL SUCC 24HR ER 25 MG TAB.ER.24H. PO SCH (08:29)
[2018-05-17] MEDS: PANTOPRAZOLE IV 40 MG VIAL. IVP SCH (08:29)
[2018-05-17] MEDS: NYSTATIN TOPICAL POWDER 15GM BOTTLE. TP SCH (08:37)
[2018-05-17] MEDS ORDERED: IRON SUCROSE COMPLEX 500 MG in IV NORMAL SALINE 250ML 250 ML IV ONE (10:30)
--- NOTE | 2018-05-17 13:06 | DS ---
DATE OF DISCHARGE: 05/17/2018 HOSPITAL COURSE: The patient is resting, slightly propped up in bed, in no apparent respiratory distress. Questioning him, he denied any complaint. Nursing staff did not voice any concern. He has had no further episodes of nausea or vomiting. He tolerated his breakfast and lunch without any problem. He remained hemodynamically stable, afebrile, and his hemoglobin remained stable after received 1 unit of packed RBCs and 2 infusions of Venofer a decision was made to transfer him to [facility] to continue the process of rehabilitation. PHYSICAL EXAMINATION: GENERAL: When I saw him this afternoon, he looked well and was clearly in no apparent distress, pale, but no jaundice, cyanosis, or thyromegaly. No jugular venous distension. No limb edema. VITAL SIGNS: His heart rate was 70, blood pressure 148/63, temperature was 97.9, respiratory rate 20, and oxygen saturation was 94% on 2 liters of oxygen. HEAD, EYES, EARS, NOSE AND THROAT: Showed normocephalic, atraumatic. NECK: Supple. HEART: Showed normal first and second heart sounds with no gallop, rub or murmur. CHEST: Shows central trachea, equal bilateral expansion, air entry, vesicular sounds. No crepitation or rhonchi. ABDOMEN: Distended, soft, nontender. No guarding or rigidity. No organomegaly. All hernial orifice intact. Bowel sounds normal. NEUROLOGIC: He was awake, alert, responding appropriately. All cranial nerves intact. He moves extremities without difficulty. He is normally bedbound, chair bound and was able to walk with a walker using his prostheses. His intake was 3200, no output was recorded. LABORATORY DATA: This morning showed a serum sodium 138, potassium 4.3, chloride 106, bicarbonate 25, anion gap of 7, BUN 10, creatinine 0.9, estimated GFR was 81 mL per minute, his glucose 111, calcium was 7.4. Total bilirubin, AST, ALT, alkaline phosphatase were normal. Total protein was 5.6 and albumin was 2.2. His white cell count was 4300, hemoglobin 8.1, hematocrit 26, MCV 72 and platelet count 231,000. DISCHARGE MEDICATIONS: He was discharged to [facility] to continue on following medication; oxycodone/APAP 5/325 one tablet every 6 hours, ropinirole 0.5 mg 3 times a day, Protonix 40 mg p.o. b.i.d., losartan potassium 100 mg once a day, cetirizine 10 mg once a day, amlodipine 10 mg once a day, metoprolol 12.5 mg once a day, nystatin powder applied topically twice a day, lactobacillus rhamnosus for Culturelle 1 capsule twice a day, gabapentin 600 mg 4 times a day, atorvastatin calcium 80 mg at bedtime, Lantus insulin 17 units at bedtime, gabapentin 100 mg twice a day. He was discharged also on cefpodoxime 200 mg twice a day for his UTI. FINAL DISCHARGE DIAGNOSES: 1. Recurrent falls. 2. Acute encephalopathy, resolved. 3. 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 The patient has multiple medical problems including: A. Type 2 diabetes mellitus. B. Hypertension. C. Hyperlipidemia. D. Coronary artery disease, status post coronary artery bypass graft surgery, peripheral vascular disease, status post left below knee amputation. E. Urinary tract infection. PATY ZELAYA MD DR: DAYNA/favio JOB#: [id number] / [id number]
== END 2018-05-17 12:22 | DRG 871 ==
LOC: ER 08:10 → 1 SOUTH 10:50
PROVIDERS: ADMIT Internal Medicine; ATTEND Internal Medicine
PROC: 30233N1 Transfusion of Nonautologous Red Blood Cells into Peripheral Vein, Percutaneous Approach (ICD-10-PCS; principal; 2018-05-16)
DX: A41.9 Sepsis, unspecified organism (principal); J96.00 Acute respiratory failure, unspecified whether with hypoxia or hypercapnia; N39.0 Urinary tract infection, site not specified; G93.40 Encephalopathy, unspecified; D50.9 Iron deficiency anemia, unspecified; W05.0XXA Fall from non-moving wheelchair, initial encounter; E11.51 Type 2 diabetes mellitus with diabetic peripheral angiopathy without gangrene; E78.00 Pure hypercholesterolemia, unspecified; E78.5 Hyperlipidemia, unspecified; I10 Essential (primary) hypertension; I25.10 Atherosclerotic heart disease of native coronary artery without angina pectoris; R29.6 Repeated falls; Z82.49 Family history of ischemic heart disease and other diseases of the circulatory system; Z87.891 Personal history of nicotine dependence; Z89.512 Acquired absence of left leg below knee; Z95.1 Presence of aortocoronary bypass graft; Z98.41 Cataract extraction status, right eye; Z98.42 Cataract extraction status, left eye; Y93.89 Activity, other specified; Y92.002 Bathroom of unspecified non-institutional (private) residence as the place of occurrence of the external cause; Y99.8 Other external cause status; Z90.49 Acquired absence of other specified parts of digestive tract; Z90.89 Acquired absence of other organs; Z79.82 Long term (current) use of aspirin; Z79.899 Other long term (current) drug therapy; Z79.4 Long term (current) use of insulin
CPT/HCPCS: 36415; 70450; 71045; 80048; 80053; 81001; 82274; 82550; 82728; 82947; 83540; 83550; 83605; 83615; 83690; 84484; 85014; 85018; 85025; 85027; 86850; 86900; 86901; 86920; 87086; 93005; 96361; 96365; C9113; J0696; J1756; J1815; J7050; P9016; 97110; 97530; 99285-25; J7030

== ENCOUNTER 2018-06-18 18:59 | Inpatient (IN) | payer MEDICARE ==
[~2018-06-18] VITALS: Ht 180.3 cm; Wt 77.7 kg
[~2018-06-18 18:59] MED LIST changes: +AMLO10TA6 PO; +ASPI-630 PO; +GABA600T2 PO; +HYDR12.58 PO; +INSU100C4 SQ; +INSU100I13 SQ; +LOSA100T14 PO; +METO25TA2 PO
--- NOTE | 2018-06-18 19:01 | ED.ADGEN ---
Past History Past Medical History: A-Fib, Diabetes, High Cholesterol, Hypertension Past Surgical History: Other Past Surgical History BLK Amputation Lt. Alcohol Use: None Drug Use: None Adult General Chief Complaint Chief Complaint ".. They say .. I am having mental problems.. sena coming in and out of it... but I ve had that for years...." HPI HPI Patient is a 83 year old male who presents with above hx and complaints increased confusion and increased intentional tremors. Pt. is a resident of [facility] since 04/30/2013, with interment hospitalizations. Pt. per [facility] tonight seemed more confused and his tremors are more pronounced. Pt. Has extensive medical hx. pulmonary embolisms, urinary tract infections, anemia , pleural effusions, falling, diabetes, peripheral neuropathy, hyperlipidemia, hypertension, chronic ischemic heart disease, Parkinson disease, dementia, and localized deconditioning. Patient normally follows with at the assisted. Review of Systems Review of Systems Constitutional: Denies fever or chills [] Eyes: Denies change in visual acuity, redness, or eye pain [] HENT: Denies nasal congestion or sore throat [] Respiratory: Denies cough or shortness of breath [] Cardiovascular: No additional information not addressed in HPI [] GI: Denies abdominal pain, nausea, vomiting, bloody stools or diarrhea [] : Denies dysuria or hematuria [] Musculoskeletal: Denies back pain or joint pain [] Integument: Denies rash or skin lesions [] Neurologic: Denies headache, focal weakness or sensory changes [] Hx of mental status changes- interment and increase intentions tremor. Endocrine: Denies polyuria or polydipsia [] All other systems were reviewed and found to be within normal limits, except as documented in this note. Family History Family History Non-contributory Current Medications Current Medications Current Medications Medications (Trade) Dose Ordered Sig/Amber Start Time Stop Time Status Last Admin Dose Admin Lactated Ringer's 1,000 ml @ 100 mls/hr Q10H 06/18/18 19:05 06/19/18 05:04 06/18/18 19:49 100 MLS/HR See N.Home record for current out pt. meds. Allergies Allergies Allergies Coded Allergies Type Severity Reaction Last Updated Verified No Known Drug Allergies 09/18/14 No Physical Exam Physical Exam Constitutional: no acute distress, non-toxic appearance. [] HENT: Normocephalic, atraumatic, bilateral external ears normal, oropharynx moist, no oral exudates, nose normal. [] Eyes: PERRLA, EOMI, conjunctiva normal, no discharge. [] Neck: Normal range of motion, no tenderness, supple, no stridor. [] Cardiovascular:Heart rate regular rhythm, no murmur []PMI to the left Lungs & Thorax: Bilateral breath sounds equal at apex with scattered wheezes , bi basilar crackles on auscultation [] Abdomen: Bowel sounds normal, soft, no tenderness, mild distention, no masses, no pulsatile masses. [] Obese. Skin: Warm, dry, no erythema, no rash. [Poor turgor Back: No tenderness, no CVA tenderness. [] Extremities: No tenderness, no cyanosis, no clubbing, ROM at baseline for patient, . [] Below the knee amputation left. Right leg shows venous stasis and edema changes Neurologic: Alert and oriented X 3, no gross motor function over his baseline, crease distal right leg sensory- reportedly at his baseline, no new focal deficits noted per patient and family. Does have a intentional tremor. Psychologic: Affect normal, some memory and decreased insight, mood normal. [] Current Patient Data Vital Signs Vital Signs Date Time Temp Pulse Resp B/P (MAP) Pulse Ox O2 Delivery O2 Flow Rate FiO2 06/18/18 19:12 98.3 76 18 96 Room Air Lab Results Laboratory Tests Test 06/18/18 19:46 White Blood Count 3.9 x10^3/uL (4.0-11.0) L Red Blood Count 4.08 x10^6/uL (4.30-5.70) L Hemoglobin 10.5 g/dL (13.0-17.5) L Hematocrit 33.2 % (39.0-53.0) L Mean Corpuscular Volume 81 fL (79-100) Mean Corpuscular Hemoglobin 26 pg (25-35) Mean Corpuscular Hemoglobin Concent 32 g/dL (31-37) Red Cell Distribution Width 28.9 % (11.5-14.5) H Platelet Count 310 x10^3/uL (140-400) Neutrophils (%) (Auto) 84 % (31-73) H Lymphocytes (%) (Auto) 13 % (24-48) L Monocytes (%) (Auto) 2 % (0-9) Eosinophils (%) (Auto) 1 % (0-3) Basophils (%) (Auto) 1 % (0-3) Neutrophils # (Auto) 3.3 x10^3uL (1.8-7.7) Lymphocytes # (Auto) 0.5 x10^3/uL (1.0-4.8) L Monocytes # (Auto) 0.1 x10^3/uL (0.0-1.1) Eosinophils # (Auto) 0.0 x10^3/uL (0.0-0.7) Basophils # (Auto) 0.0 x10^3/uL (0.0-0.2) Erythrocyte Sedimentation Rate Pending EKG EKG My EKG shows a sinus rhythm at 73 bpm. There is leftward axis. No findings of acute STEMI with contralateral changes[] Radiology/Procedures Radiology/Procedures My interpretation of chest x-ray shows atelectasis versus decreased volumes left lung field. Some blunting a left closed phrenic angle. This is a change from 05/14/18[] does have findings of cardiomegaly. Sternal wires. Clips left upper apex along. Degenerative joint changes.. My interpretation CT head shows no shift, mass, edema, bleed, or fracture. Does have generalized atrophy. See formal report when available Course & Med Decision Making Course & Med Decision Making Pertinent Labs and Imaging studies reviewed. (See chart for details). Pt. admitted to Dr. Morley for further eval. and tx.. [] Final Impression Final Impression 1. Mental Status Change[] 2. CHF- BNP 2634 3 DM glu. 325 4. Anemia 10.5 Dragon Disclaimer Dragon Disclaimer This electronic medical record was generated, in whole or in part, using a voice recognition dictation system. Dragon Disclaimer This chart was dictated in whole or in part using Voice Recognition software in a busy, high-work load, and often noisy Emergency Department environment. It may contain unintended and wholly unrecognized errors or omissions. Discharge Summary Visit Information Final Diagnosis Problems Medical Problems: (1) Change in mental status Status: Acute Brief Hospital Course Allergies Allergies Coded Allergies Type Severity Reaction Last Updated Verified No Known Drug Allergies 09/18/14 No Vital Signs Vital Signs Date Time Temp Pulse Resp B/P (MAP) Pulse Ox O2 Delivery O2 Flow Rate FiO2 06/18/18 21:53 98.4 71 26 148/58 (88) 95 Room Air Lab Results Laboratory Tests Test 06/18/18 19:46 White Blood Count 3.9 x10^3/uL (4.0-11.0) Red Blood Count 4.08 x10^6/uL (4.30-5.70) Hemoglobin 10.5 g/dL (13.0-17.5) Hematocrit 33.2 % (39.0-53.0) Mean Corpuscular Volume 81 fL (79-100) Mean Corpuscular Hemoglobin 26 pg (25-35) Mean Corpuscular Hemoglobin Concent 32 g/dL (31-37) Red Cell Distribution Width 28.9 % (11.5-14.5) Platelet Count 310 x10^3/uL (140-400) Neutrophils (%) (Auto) 84 % (31-73) Lymphocytes (%) (Auto) 13 % (24-48) Monocytes (%) (Auto) 2 % (0-9) Eosinophils (%) (Auto) 1 % (0-3) Basophils (%) (Auto) 1 % (0-3) Neutrophils # (Auto) 3.3 x10^3uL (1.8-7.7) Lymphocytes # (Auto) 0.5 x10^3/uL (1.0-4.8) Monocytes # (Auto) 0.1 x10^3/uL (0.0-1.1) Eosinophils # (Auto) 0.0 x10^3/uL (0.0-0.7) Basophils # (Auto) 0.0 x10^3/uL (0.0-0.2) Platelet Estimate Adequate (ADEQUATE) Polychromasia Present Anisocytosis Present Microcytosis Present Target Cells Occ Tear Drop Cells Occ Ovalocytes Few Rosa Cells Few Erythrocyte Sedimentation Rate 31 (0-15) Prothrombin Time 9.9 SEC (9.4-11.4) Prothromb Time International Ratio 1.0 (0.9-1.1) Activated Partial Thromboplast Time 28 SEC (23-33) D-Dimer (Bianca) 3.61 mg/L (0.00-0.50) Urine Collection Type Unknown Urine Color Yellow Urine Clarity Clear Urine pH 6.5 Urine Specific [place] 1.015 Urine Protein Neg (NEG-TRACE) Urine Glucose (UA) 500 mg/dL (NEG) Urine Ketones (Stick) Neg mg/dL (NEG) Urine Blood Neg (NEG) Urine Nitrite Neg (NEG) Urine Bilirubin Neg (NEG) Urine Urobilinogen Dipstick 0.2 mg/dL (0.2 mg/dL) Urine Leukocyte Esterase Neg (NEG) Urine RBC 3-5 /HPF (0-2) Urine WBC Occ /HPF (0-4) Urine Squamous Epithelial Cells Many /LPF Urine Bacteria Few /HPF (0-FEW) Sodium Level 134 mmol/L (136-145) Potassium Level 4.6 mmol/L (3.5-5.1) Chloride Level 98 mmol/L (98-107) Carbon Dioxide Level 26 mmol/L (21-32) Anion Gap 10 (6-14) Blood Urea Nitrogen 19 mg/dL (8-26) Creatinine 1.3 mg/dL (0.7-1.3) Estimated GFR (Cockcroft-Gault) 52.9 Glucose Level 325 mg/dL (70-99) Calcium Level 8.5 mg/dL (8.5-10.1) Magnesium Level 2.1 mg/dL (1.8-2.4) Total Bilirubin 0.2 mg/dL (0.2-1.0) Direct Bilirubin 0.1 mg/dL (0.0-0.2) Aspartate Amino Transf (AST/SGOT) 27 U/L (15-37) Alanine Aminotransferase (ALT/SGPT) 26 U/L (16-63) Alkaline Phosphatase 67 U/L (46-116) Creatine Kinase 85 U/L (39-308) Troponin I Quantitative < 0.017 ng/mL (0-0.055) TJ-Orh-M-Type Natriuretic Peptide 2634 pg/mL (0-449) Total Protein 7.3 g/dL (6.4-8.2) Albumin 3.2 g/dL (3.4-5.0) Lipase 80 U/L (73-393) Urine Opiates Screen Neg (NEG) Urine Methadone Screen Neg (NEG) Urine Barbiturates Neg (NEG) Urine Phencyclidine Screen Neg (NEG) Urine Amphetamine/Methamphetamine Neg (NEG) Urine Benzodiazepines Screen Neg (NEG) Urine Cocaine Screen Neg (NEG) Urine Cannabinoids Screen Neg (NEG) Urine Ethyl Alcohol Neg (NEG) Brief Hospital Course Mr. Mathews is a 83 old male who presented with hx mental status change and increased tremor. Pt. found to have exacerbation of CHF, and elevated glucose. Admitted Dr. Morley Discharge Information Condition at Discharge: Improved Dischare Medications Current Medications Lactated Ringer's 1,000 ml @ 100 mls/hr Q10H IV Last administered on 06/18/18at 19:49; Start 06/18/18 at 19:05; Stop 06/19/18 at 05:04 Furosemide (Lasix) 40 mg 1X ONCE IVP Last administered on 06/18/18at 20:55; Start 06/18/18 at 20:45; Stop 06/18/18 at 20:46; Status DC Ondansetron HCl (Zofran) 4 mg PRN Q4HRS PRN IV NAUSEA/VOMITING; Start 06/18/18 at 20:30; Stop 06/19/18 at 20:29 Albuterol/ Ipratropium (Duoneb) 3 ml RTQID NEB ; Start 06/19/18 at 08:00; Stop at 07:59 Furosemide (Lasix) 40 mg DAILY IVP ; Start 06/19/18 at 09:00 Active Scripts Active Reported Novolog (Insulin Aspart) 100 Unit/1 Ml Cartridge 1 Unit SQ PRN PRN Lantus Solostar (Insulin Glargine,Hum.rec.anlog) 100 Unit/1 Ml Insuln.pen 17 Unit SQ QHS Aspirin 81 Mg Tab.chew 81 Mg PO DAILY Gabapentin 600 Mg Tablet 600 Mg PO QID Gabapentin 100 Mg Capsule 100 Mg PO BID Amlodipine Besylate 10 Mg Tablet 1 Tab PO DAILY Hydrochlorothiazide Tablet (Hydrochlorothiazide) 12.5 Mg Tablet 1 Tab PO DAILY Losartan Potassium 100 Mg Tablet 100 Mg PO DAILY Toprol Xl (Metoprolol Succinate) 25 Mg Tab.er.24h 12.5 Mg PO DAILY Loratadine 10 Mg Tablet 10 Mg PO DAILY Atorvastatin Calcium 80 Mg Tablet 80 Mg PO QHS ANA VALDES MD Jun 18, 2018 19:01
[2018-06-18] MEDS ORDERED: IV RINGERS SOLUTION,LACTATED 1,000 ML IV SCH (19:05)
--- NOTE | 2018-06-18 19:19 | EKG ---
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
--- NOTE | 2018-06-18 19:47 | RAD ---
RS Compliance Statement: One or more of the following individualized dose reduction techniques were utilized for this examination: 1. Automated exposure control 2. Adjustment of the mA and/or kV according to patient size 3. Use of iterative reconstruction technique CT HEAD WITHOUT CONTRAST History: mental status changes Comparison: CT head without contrast, May 14, 2018. Technique: Axial images are obtained of the head from the skull base through the vertex without IV contrast. Findings: No mass-effect, midline shift, extra-axial fluid collection, hemorrhage, or obvious acute infarction is identified. Basilar cisterns are patent. The ventricles and sulci are prominent, consistent with age-related cerebral atrophy. There is supratentorial white matter hypoattenuation. This is a nonspecific finding but is commonly due to chronic small vessel ischemic disease. Bone windows demonstrate no acute calvarial abnormality. Minimal mucosal thickening dependently in the bilateral maxillary sinuses. No air-fluid level. Mastoid air cells are well aerated. IMPRESSION: 1. No acute intracranial abnormality. 2. Age-related cerebral atrophy and periventricular white matter changes of chronic small vessel ischemic disease. Electronically signed by: Dragan Aguilar MD (06/18/2018 7:43 PM) [facility]
[2018-06-18 19:56] LABS: BASO % 1 % (0-3); EOS % 1 % (0-3); HEMATOCRIT 33.2 % (39.0-53.0); HEMOGLOBIN 10.5 g/dL (13.0-17.5); LYMPH # 0.5 x10^3/uL (1.0-4.8); LYMPH % 13 % (24-48); MEAN CORPUSCULAR HEMOGLOBIN 26 pg (25-35); MEAN CORPUSCULAR HGB CONC 32 g/dL (31-37); MEAN CORPUSCULAR VOLUME 81 fL (79-100); MONO # 0.1 x10^3/uL (0.0-1.1); MONO % 2 % (0-9); NEUT # 3.3 x10^3uL (1.8-7.7); NEUT % 84 % (31-73); PLATELET COUNT 310 x10^3/uL (140-400); RED BLOOD COUNT 4.08 x10^6/uL (4.30-5.70); RED CELL DISTRIBUTION WIDTH 28.9 % (11.5-14.5); WHITE BLOOD COUNT 3.9 x10^3/uL (4.0-11.0)
[2018-06-18 20:13] LABS: BILIRUBIN,URINE NEG (NEG); CLARITY,URINE CLEAR; COLOR,URINE YELLOW; GLUCOSE,URINE 500 mg/dL (NEG)
[2018-06-18 20:14] LABS: BACTERIA,URINE FEW /HPF (0-FEW); NITRITE,URINE NEG (NEG); SQUAMOUS EPITHELIAL CELL,UR MANY /LPF; UROBILINOGEN,URINE 0.2 mg/dL (0.2 mg/dL); WBC,URINE OCC /HPF (0-4)
[2018-06-18 20:16] LABS: BARBITURATES NEG (NEG); BENZODIAZEPINES NEG (NEG); CANNABINOIDS NEG (NEG); COCAINE NEG (NEG); METHADONE NEG (NEG); OPIATES NEG (NEG); PHENCYCLIDINE NEG (NEG)
[2018-06-18 20:20] LABS: AMPHETAMINE/METHAMPHETAMINE NEG (NEG)
[2018-06-18 20:22] LABS: ALBUMIN 3.2 g/dL (3.4-5.0); CALCIUM 8.5 mg/dL (8.5-10.1); CREATININE 1.3 mg/dL (0.7-1.3); DIRECT BILIRUBIN 0.1 mg/dL (0.0-0.2); GFR 52.9; MAGNESIUM 2.1 mg/dL (1.8-2.4); POTASSIUM 4.6 mmol/L (3.5-5.1); TOTAL BILIRUBIN 0.2 mg/dL (0.2-1.0); TOTAL PROTEIN 7.3 g/dL (6.4-8.2)
[2018-06-18] MEDS ORDERED: ONDANSETRON PF 4 MG/2 ML VIAL. IV PRN (20:30)
[2018-06-18] MEDS ORDERED: FUROSEMIDE 40 MG/4 ML VIAL IVP ONE (20:45)
[2018-06-18 21:29] LABS: SEDIMENTATION RATE 31 (0-15)
[2018-06-18 21:33] LABS: PLT ESTIMATE ADEQUATE (ADEQUATE)
[2018-06-18 21:34] LABS: BURR CELLS FEW; OVALOCYTES FEW
[2018-06-18 21:38] LABS: TARGET CELLS OCC
[2018-06-18 21:40] LABS: POLYCHROMASIA PRESENT; TEAR DROP CELLS OCC
[2018-06-18 21:42] LABS: ANISOCYTOSIS PRESENT; MICROCYTOSIS PRESENT
[2018-06-18 21:53] VITALS: BP 148/58
[2018-06-18] MEDS ORDERED: CETI10TA16 PO (23:55)
[2018-06-19] MEDS ORDERED: DEXTROSE 50% 25 GM / 50ML DISP.SYRIN. IV PRN
[2018-06-19] MEDS ORDERED: oxyCODONE/APAP 5/325 1 TAB TABLET PO PRN
[2018-06-19] MEDS ORDERED: INSULIN GLARGINE 300 UNITS/3 ML INSULN.PEN. SQ SCH (00:30)
[2018-06-19] MEDS: IV NORMAL SALINE 1,000ML 1,000 ML IV SCH ×2 (00:58→10:00)
[2018-06-19] MEDS ORDERED: methylPREDNISolone 4 MG TABLET. PO ONE ×2 (01:00→21:00)
[2018-06-19 03:10] VITALS: BP 144/60
[2018-06-19 03:47] VITALS: BP 150/72
[2018-06-19 05:57] VITALS: BP 148/53
[2018-06-19 06:16] LABS: BASO % 1 % (0-3); EOS # 0.1 x10^3/uL (0.0-0.7); EOS % 2 % (0-3); HEMATOCRIT 32.7 % (39.0-53.0); HEMOGLOBIN 10.5 g/dL (13.0-17.5); LYMPH # 0.8 x10^3/uL (1.0-4.8); LYMPH % 15 % (24-48); MEAN CORPUSCULAR HEMOGLOBIN 26 pg (25-35); MEAN CORPUSCULAR HGB CONC 32 g/dL (31-37); MEAN CORPUSCULAR VOLUME 80 fL (79-100); MONO # 0.2 x10^3/uL (0.0-1.1); MONO % 4 % (0-9); NEUT # 4.2 x10^3uL (1.8-7.7); NEUT % 78 % (31-73); PLATELET COUNT 310 x10^3/uL (140-400); RED BLOOD COUNT 4.07 x10^6/uL (4.30-5.70); RED CELL DISTRIBUTION WIDTH 28.8 % (11.5-14.5); WHITE BLOOD COUNT 5.3 x10^3/uL (4.0-11.0)
--- NOTE | 2018-06-19 06:20 | RAD ---
Chest AP portable at 0638: Reason for examination: Chest pain and weakness. Comparison is made to previous study dated 05/14/2018. There are postop changes in the sternum and mediastinum. The heart size is normal. Mediastinum is unchanged. Lung salgado show mild haziness at the left base consistent with some infiltrate. No pleural effusions are seen. No acute bony abnormalities are present. IMPRESSION: Left basilar infiltrates. Electronically signed by: Prachi Richards MD (06/19/2018 6:16 AM) [facility]
[2018-06-19 06:27] LABS: ALBUMIN 3.2 g/dL (3.4-5.0); ALBUMIN/GLOBULIN RATIO 0.8 (1.0-1.7); CALCIUM 8.7 mg/dL (8.5-10.1); CREATININE 1.1 mg/dL (0.7-1.3); GFR 64.1; POTASSIUM 4.2 mmol/L (3.5-5.1); TOTAL BILIRUBIN 0.3 mg/dL (0.2-1.0); TOTAL PROTEIN 7.1 g/dL (6.4-8.2)
[2018-06-19] MEDS: rOPINIRole 0.5 MG TABLET. PO SCH ×2 (07:49→15:32)
[2018-06-19] MEDS: PANTOPRAZOLE 40 MG TABLET. PO SCH ×2 (07:49→15:32)
[2018-06-19] MEDS ORDERED: methylPREDNISolone 4 MG TABLET. PO SCH ×2 (08:00→12:00)
[2018-06-19] MEDS: INSULIN LISPRO 300 UNITS/3 ML INSULN.PEN. SQ SCH ×3 (08:22→17:07)
[2018-06-19] MEDS ORDERED: NON FORMULARY ITEM (Gabapentin 600 MG) PO SCH (09:00)
[2018-06-19] MEDS ORDERED: amLODIPine BESYLATE 10 MG TABLET PO SCH (09:00)
[2018-06-19] MEDS ORDERED: METOPROLOL SUCC 24HR ER 25 MG TAB.ER.24H. PO SCH (09:00)
[2018-06-19] MEDS ORDERED: FERROUS SULFATE 325 MG TABLET. PO SCH (09:00)
[2018-06-19] MEDS ORDERED: TRIAMCINOLONE ACETONIDE 0.1% TOPICAL CREAM 15GM TUBE. TP SCH (09:00)
[2018-06-19] MEDS ORDERED: LOSARTAN 50 MG TABLET. PO SCH (09:00)
[2018-06-19] MEDS ORDERED: ASCORBIC ACID 500 MG TABLET PO SCH (09:00)
[2018-06-19] MEDS ORDERED: FUROSEMIDE 20 MG TABLET PO SCH (09:00)
[2018-06-19] MEDS ORDERED: LACTOBACILLUS RHAMNOSUS GG 1 CAPSULE. PO SCH (09:00)
[2018-06-19] MEDS ORDERED: NYSTATIN TOPICAL POWDER 15GM BOTTLE. TP SCH (09:00)
[2018-06-19] MEDS ORDERED: MULTIVITAMIN with MINERAL TABLET. PO SCH (09:00)
[2018-06-19] MEDS ORDERED: FUROSEMIDE 40 MG/4 ML VIAL IVP SCH (09:00)
[2018-06-19] MEDS ORDERED: GABAPENTIN 100 MG CAPSULE. PO SCH (09:00)
[2018-06-19 11:04] VITALS: BP 128/56
[2018-06-19] MEDS: IPRATRPIUM/ALBUTEROL 0.5/2.5MG 3 ML NEBU. NEB SCH ×2 (13:08→15:34)
--- NOTE | 2018-06-19 15:22 | SSS ---
ADMIT DATE: 06/18/2018 HISTORY OF PRESENT ILLNESS: The patient is an 83-year-old male patient, a resident at [facility] who was seen 2 days ago with marked flare up of his eczema, for which we will continue treating him with triamcinolone acetonide cream 0.1% topically. However, the flare up was such that almost entire body was involved and therefore, I added a Medrol Dosepak. Apparently, this was started yesterday morning and yesterday evening, the patient became extremely confused, according to nursing staff, agitated and they said also that he has increased tremors and therefore he was transferred to Emergency Room, where he was extensively evaluated. His lab work was mostly unremarkable in particular his white cell count was only 3900, if anything, his hemoglobin and hematocrit were much improved compared to previous admission and why her platelet count were normal. His kidney function has also been normal. His blood sugar was slightly high, probably is a side effect of his steroids. His D-dimer was high at 3.6; however, is known to have pulmonary embolism and has had an inferior vena cava filter placed at [facility] recently. His urinalysis was essentially unremarkable and toxic screen was essentially negative. Has had CT scan of the head, which showed that there is no acute intracranial abnormality, age-related cerebral atrophy and periventricular white matter changes of chronic small vessel ischemic disease. In fact, when I saw him his skin lesion has markedly improved, especially in his upper extremities and upper torso. The eczema is still prominent in his right lower extremity. PAST MEDICAL HISTORY: Significant for type 2 diabetes mellitus, hypertension, hyperlipidemia, coronary artery disease, status post coronary artery bypass graft surgery, about 8 years ago he has left below-knee amputation, has tremors of his hands, which seemed to be more consistent with Parkinson's disease rather than essential tremors, in fact he was seen by Dr. Friedman and he was started on Requip. PAST SURGICAL HISTORY: Significant for bilateral cataract extraction, tonsillectomy, cholecystectomy, left below knee amputation and colonoscopy x 2 as well as placement of an inferior vena cava recently. He is also an upper GI endoscopy done recently at [facility]. ALLERGIES: He has no known drug allergies. FAMILY HISTORY: He has 2 brothers who are older, 1 older sister and 1 younger sister. His father at the age of 73 because of myocardial infarction. His mother at age of 44 because of congestive heart failure. SOCIAL HISTORY: , has been with his for the last 60 years. He has 2 sons and 2 daughters. He quit smoking in 1988. He drinks alcohol very occasionally. 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 REVIEW OF SYSTEMS: As per history of present illness. PHYSICAL EXAMINATION: GENERAL: On arrival to the Emergency Room, the patient looked well and was clearly in no apparent respiratory distress, pale, but no jaundice, cyanosis or thyromegaly. No jugular venous distention. No limb edema. VITAL SIGNS: His heart rate was 53, blood pressure 128/56, temperature was 98.2, respiratory rate was 17 and oxygen saturation was 98% on room air. HEAD, EYES, EARS, NOSE AND THROAT: Showed normocephalic, atraumatic. NECK: Supple. HEART: Showed normal first and second heart sounds with no gallop, rub or murmur. CHEST: Clear to auscultation. No crepitation or rhonchi. ABDOMEN: Distended, soft, nontender. No guarding or rigidity. No organomegaly. Hernial orifice intact. Bowel sounds normal. NEUROLOGIC: He was awake, alert, responding appropriately. All cranial nerves intact. EXTREMITIES: He moves extremities without difficulty, ambulates with a walker with standby assist using his prosthesis. LABORATORY DATA: On arrival showed a white cell count was 3900, hemoglobin 10.5, hematocrit 33, MCV 81, and platelet count of 310,000. His chemistry on arrival showed a serum sodium 134, potassium 4.6, chloride 98, bicarbonate 26, anion gap of 10, BUN 19, creatinine 1.3, estimated GFR was 53 mL per minute. His glucose was 325, calcium was 8.5, magnesium 2.1. Total bilirubin, AST, ALT, alkaline phosphatase were normal. His beta natriuretic peptide was 2634. Total protein was 7.3, albumin was 3.2. His prothrombin time was 9.9, INR of 1, aPTT was 28. D-dimer was 3.6. Urinalysis was unremarkable. Toxic screen was unremarkable. The patient remained hemodynamically stable and afebrile. In fact, his eczema has dramatically improved compared to what I saw the last 2 days ago. PLAN: My plan is to discharge him back to [facility] to continue with the Medrol Dosepak. Continue with all his other medications and probably needs to be on insulin sliding scale and we might have to increase his Lantus. He will also benefit from Lac-Hydrin as he has marked dryness of his pressure right lower extremity. PATY ZELAYA MD DR: DAYNA/favio JOB#: [id number] / [id number]
[2018-06-19 15:41] VITALS: BP 125/53
--- NOTE | 2018-06-19 17:07 | RAD ---
EXAM: Bilateral lower extremity venous Doppler sonogram. HISTORY: Pain and swelling. TECHNIQUE: Dill scale and color Doppler sonographic evaluation of the bilateral lower extremity veins with spectral waveform analysis was performed. FINDINGS: Evaluation of the left lower extremity veins distal to the mid superficial femoral vein is not performed due to a below-knee amputation and prosthesis which extends to the level of the mid thighs. There is normal color flow, normal compressibility and there are normal spectral waveforms in the remainder of the left lower extremity veins and throughout the right lower extremity veins. IMPRESSION: No Doppler evidence of lower extremity deep venous thrombosis, with nonassessment of the distal left superficial femoral vein and popliteal vein due to an overlying prosthesis. Electronically signed by: Betty Babcock MD (06/19/2018 5:03 PM) [place] [id number]
[2018-06-19] MEDS ORDERED: ATORVASTATIN CALCIUM 20 MG TABLET PO SCH (21:00)
[2018-06-20] MEDS ORDERED: methylPREDNISolone 4 MG TABLET. PO SCH ×2 (17:00→21:00)
== END 2018-06-19 17:24 | DRG 606 ==
LOC: ER 18:59 → ICU 20:30 → ER 21:25
PROVIDERS: ADMIT Internal Medicine; ATTEND Internal Medicine
DX: L30.9 Dermatitis, unspecified (principal); G92 Toxic encephalopathy; E11.42 Type 2 diabetes mellitus with diabetic polyneuropathy; E78.00 Pure hypercholesterolemia, unspecified; E78.5 Hyperlipidemia, unspecified; F03.90 Unspecified dementia, unspecified severity, without behavioral disturbance, psychotic disturbance, mood disturbance, and anxiety; F48.9 Nonpsychotic mental disorder, unspecified; G20 Parkinson's disease; I10 Essential (primary) hypertension; D64.9 Anemia, unspecified; I25.10 Atherosclerotic heart disease of native coronary artery without angina pectoris; I48.91 Unspecified atrial fibrillation; Z82.49 Family history of ischemic heart disease and other diseases of the circulatory system; Z86.711 Personal history of pulmonary embolism; Z87.891 Personal history of nicotine dependence; Z89.512 Acquired absence of left leg below knee; Z95.1 Presence of aortocoronary bypass graft; Z98.41 Cataract extraction status, right eye; Z98.42 Cataract extraction status, left eye
CPT/HCPCS: 36415; 70450; 71045; 80048; 80053; 80076; 80307; 81001; 82550; 82947; 83690; 83735; 83880; 84443; 84484; 85025; 85379; 85610; 85651; 85730; 87641; 93005; 93970; 94640; 96361; 96374; J1815; J1940; J7120; J7509; J7620; 99285-25; J7030

== ENCOUNTER 2018-08-19 11:03 | Inpatient (IN) | payer MEDICARE ==
[~2018-08-19] VITALS: Ht 180.3 cm; Wt 84.4 kg
[2018-08-19] VITALS (8 sets, daily range): BP systolic 95–125; BP diastolic 41–58
[~2018-08-19 11:03] MED LIST changes: -AMLO10TA6 PO; +AMLO10TA8 PO; +AMLO5TAB10 PO; -AMLO5TAB7 PO; +CETI10TA16 PO; -GABA600T2 PO; +GABA600T7 PO
[2018-08-19 11:47] LABS: BASO % 0 % (0-3); EOS # 0.1 x10^3/uL (0.0-0.7); EOS % 1 % (0-3); HEMATOCRIT 36.9 % (39.0-53.0); HEMOGLOBIN 12.1 g/dL (13.0-17.5); LYMPH # 0.4 x10^3/uL (1.0-4.8); LYMPH % 3 % (24-48); MEAN CORPUSCULAR HEMOGLOBIN 28 pg (25-35); MEAN CORPUSCULAR HGB CONC 33 g/dL (31-37); MEAN CORPUSCULAR VOLUME 87 fL (79-100); MONO # 0.4 x10^3/uL (0.0-1.1); MONO % 4 % (0-9); NEUT # 9.7 x10^3uL (1.8-7.7); NEUT % 92 % (31-73); PLATELET COUNT 172 x10^3/uL (140-400); RED BLOOD COUNT 4.25 x10^6/uL (4.30-5.70); RED CELL DISTRIBUTION WIDTH 21.1 % (11.5-14.5); WHITE BLOOD COUNT 10.6 x10^3/uL (4.0-11.0)
[2018-08-19 11:48] LABS: ALBUMIN/GLOBULIN RATIO 0.8 (1.0-1.7); CREATININE 2.3 mg/dL (0.7-1.3); GFR 27.4; POTASSIUM 4.6 mmol/L (3.5-5.1); TOTAL BILIRUBIN 0.4 mg/dL (0.2-1.0); TOTAL PROTEIN 6.9 g/dL (6.4-8.2)
--- NOTE | 2018-08-19 11:58 | RAD ---
CHEST AP ONLY History: AMS, CHF Comparison: June 18, 2018. Apices are obscured by the neck and chin. Heart size appears enlarged. There are extensive airspace opacities in both lungs, predominantly parahilar and basilar. More focal consolidation and effusion in the left lung base. No apparent pneumothorax. IMPRESSION: 1. Limited exam. 2. Extensive infiltrate and/or edema in the perihilar and basilar regions in particular. More focal dense consolidation and effusion left lung base. Electronically signed by: Rashel Ortiz MD (08/19/2018 11:55 AM) [id number]
--- NOTE | 2018-08-19 12:22 | PHYS DOC ---
Past History Past Medical History: A-Fib, Diabetes, High Cholesterol, Hypertension Past Surgical History: Other Alcohol Use: Rarely Drug Use: None Adult General Chief Complaint Chief Complaint: WEAKNESS/GENERALIZED HPI HPI 83-year-old male presents with altered mental status. The patient has been more drowsy and difficult to arouse last 2 days. His family tells me that he is not as alert as he normally is. He is speaking more slowly and has some slurred words. He answers questions appropriately. He has not exhibited any focal weakness. No measured fever at home. The patient denies chills. He denies any pain or discomfort to me other than stump of his amputation and prosthetic. He denies chest pain or shortness of breath. EMS did find the patient have an O2 sat in the mid 70s. They put him a couple liters and he went up to greater than 90%. Review of Systems Review of Systems Constitutional: Denies fever or chills [] Eyes: Denies change in visual acuity, redness, or eye pain [] HENT: Denies nasal congestion or sore throat [] Respiratory: Denies cough or shortness of breath [] Cardiovascular: No additional information not addressed in HPI [] GI: Denies abdominal pain, nausea, vomiting, bloody stools or diarrhea [] : Denies dysuria or hematuria [] Musculoskeletal: Denies back pain or joint pain [] Integument: Denies rash or skin lesions [] Neurologic: Denies headache, focal weakness or sensory changes. Slurred speech [ ] Endocrine: Denies polyuria or polydipsia [] All other systems were reviewed and found to be within normal limits, except as documented in this note. Allergies Allergies Allergies Coded Allergies Type Severity Reaction Last Updated Verified No Known Drug Allergies 09/18/14 No Physical Exam Physical Exam Constitutional: Well developed, well nourished, no acute distress, non-toxic appearance. [] HENT: Normocephalic, atraumatic, bilateral external ears normal, oropharynx moist, no oral exudates, nose normal. [] Eyes: PERRLA, EOMI, conjunctiva normal, no discharge. [] Neck: Normal range of motion, no tenderness, supple, no stridor. [] Cardiovascular:Heart rate regular rhythm, no murmur [] Lungs & Thorax: Bilateral breath sounds clear to auscultation [] Abdomen: Bowel sounds normal, soft, no tenderness, no masses, no pulsatile masses. [] Skin: Warm, dry, erythematous patches with excoriations. Consistent with eczema and the patient scratching. No obvious cellulitis [] Back: No tenderness, no CVA tenderness. 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 [] Psychologic: Affect normal, judgement normal, mood normal. [] Current Patient Data Vital Signs Vital Signs Date Time Temp Pulse Resp B/P (MAP) Pulse Ox O2 Delivery O2 Flow Rate FiO2 08/19/18 11:42 98.4 62 24 94 Room Air Lab Results Laboratory Tests Test 08/19/18 11:20 White Blood Count 10.6 x10^3/uL (4.0-11.0) Red Blood Count 4.25 x10^6/uL (4.30-5.70) L Hemoglobin 12.1 g/dL (13.0-17.5) L Hematocrit 36.9 % (39.0-53.0) L Mean Corpuscular Volume 87 fL (79-100) Mean Corpuscular Hemoglobin 28 pg (25-35) Mean Corpuscular Hemoglobin Concent 33 g/dL (31-37) Red Cell Distribution Width 21.1 % (11.5-14.5) H Platelet Count 172 x10^3/uL (140-400) Neutrophils (%) (Auto) 92 % (31-73) H Lymphocytes (%) (Auto) 3 % (24-48) L Monocytes (%) (Auto) 4 % (0-9) Eosinophils (%) (Auto) 1 % (0-3) Basophils (%) (Auto) 0 % (0-3) Neutrophils # (Auto) 9.7 x10^3uL (1.8-7.7) H Lymphocytes # (Auto) 0.4 x10^3/uL (1.0-4.8) L Monocytes # (Auto) 0.4 x10^3/uL (0.0-1.1) Eosinophils # (Auto) 0.1 x10^3/uL (0.0-0.7) Basophils # (Auto) 0.0 x10^3/uL (0.0-0.2) Platelet Estimate Pending Sodium Level 136 mmol/L (136-145) Potassium Level 4.6 mmol/L (3.5-5.1) Chloride Level 100 mmol/L (98-107) Carbon Dioxide Level 23 mmol/L (21-32) Anion Gap 13 (6-14) Blood Urea Nitrogen 44 mg/dL (8-26) H Creatinine 2.3 mg/dL (0.7-1.3) H Estimated GFR (Cockcroft-Gault) 27.4 BUN/Creatinine Ratio 19 (6-20) Glucose Level 142 mg/dL (70-99) H Calcium Level 9.0 mg/dL (8.5-10.1) Total Bilirubin 0.4 mg/dL (0.2-1.0) Aspartate Amino Transferase (AST) 60 U/L (15-37) H Alanine Aminotransferase (ALT) 59 U/L (16-63) Alkaline Phosphatase 128 U/L (46-116) H Troponin I Quantitative 0.024 ng/mL (0-0.055) QB-Crb-X-Type Natriuretic Peptide 7736 pg/mL (0-449) H Total Protein 6.9 g/dL (6.4-8.2) Albumin 3.0 g/dL (3.4-5.0) L Albumin/Globulin Ratio 0.8 (1.0-1.7) L EKG EKG Sinus rhythm, rate 63, normal axis, no ST elevations or depressions.[] Radiology/Procedures Radiology/Procedures [] Impressions: CHEST AP ONLY History: AMS, CHF Comparison: June 18, 2018. Apices are obscured by the neck and chin. Heart size appears enlarged. There are extensive airspace opacities in both lungs, predominantly parahilar and basilar. More focal consolidation and effusion in the left lung base. No apparent pneumothorax. IMPRESSION: 1. Limited exam. 2. Extensive infiltrate and/or edema in the perihilar and basilar regions in particular. More focal dense consolidation and effusion left lung base. Electronically signed by: Rashel Ortiz MD (08/19/2018 11:55 AM) [facility] DICTATED AND SIGNED BY: RASHEL ORTIZ MD DATE: 08/19/18 1786 CC: TRAY WALTON DO; HAYES WILLIAMSON MD Exam performed: CT scan of the head without contrast. Date of Service: 08/19/2018. Comparison: CT head without contrast from 06/18/2018. Clinical History: Altered mental status, slurred speech. Technique: Helical acquisitions are obtained from the foramen magnum to the vertex without intravenous administration of contrast. Findings: There is prominence of cortical sulci and ventricular system compatible with age related atrophy. There are areas of low-attenuation in both periventricular deep white matter suggesting small vessel ischemic changes. Normal gutierrez-white differentiation is maintained. There is no extra axial fluid collection, intraparenchymal hemorrhage or mass lesion. The visualized portions of the orbits, paranasal sinuses and the mastoid air cells appear clear. The calvarium is intact. Impression: 1. Age-appropriate atrophy without any acute intracranial process. [facility] Compliance Statement: One or more of the following individualized dose reduction techniques were utilized for this examination: 1. Automated exposure control 2. Adjustment of the mA and/or kV according to patient size 3. Use of iterative reconstruction technique Electronically signed by: Sherry Leyva MD (08/19/2018 12:41 PM) [place] [id number] DICTATED AND SIGNED BY: SHERRY LEYVA MD DATE: 08/19/18 1239 CC: TRAY WALTON DO; HAYES WILLIAMSON MD Course & Med Decision Making Course & Med Decision Making Pertinent Labs and Imaging studies reviewed. (See chart for details) On arrival, the patient's O2 sat was above 90%, but decreased to around 88% after he was off oxygen for a while. We have placed him on 2 L at this time. The patient's lab workup is significant for a UTI as well as significantly elevated proBNP indicating CHF. His chest x-ray shows significant edema or infiltrate. I will treat him with azithromycin in case this is an infiltrate. I will have the patient 1 g of Rocephin as well as 40 mg of Lasix and admitted him to the hospital. Blood cultures were ordered after Rocephin was given. The patient has also already been on oral antibiotics at home. His white count is normal. He does not have a fever. [] Dragon Disclaimer Dragon Disclaimer This electronic medical record was generated, in whole or in part, using a voice recognition dictation system. Departure Departure: Impression: Primary Impression: UTI (urinary tract infection) Additional Impression: CHF exacerbation Disposition: 09 ADMITTED INPATIENT Condition: GUARDED Referrals: HAYES WILLIAMSON MD (PCP) Problem Qualifiers Primary Impression: UTI (urinary tract infection) Urinary tract infection type: acute cystitis Hematuria presence: with hematuria Qualified Codes: N30.01 - Acute cystitis with hematuria Additional Impression: CHF exacerbation Heart failure type: systolic Qualified Codes: I50.23 - Acute on chronic systolic (congestive) heart failure TRAY WALTON DO Aug 19, 2018 12:22
--- NOTE | 2018-08-19 12:29 | EKG ---
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
--- NOTE | 2018-08-19 12:44 | RAD ---
Exam performed: CT scan of the head without contrast. Date of Service: 08/19/2018. Comparison: CT head without contrast from 06/18/2018. Clinical History: Altered mental status, slurred speech. Technique: Helical acquisitions are obtained from the foramen magnum to the vertex without intravenous administration of contrast. Findings: There is prominence of cortical sulci and ventricular system compatible with age related atrophy. There are areas of low-attenuation in both periventricular deep white matter suggesting small vessel ischemic changes. Normal gutierrez-white differentiation is maintained. There is no extra axial fluid collection, intraparenchymal hemorrhage or mass lesion. The visualized portions of the orbits, paranasal sinuses and the mastoid air cells appear clear. The calvarium is intact. Impression: 1. Age-appropriate atrophy without any acute intracranial process. [facility] Compliance Statement: One or more of the following individualized dose reduction techniques were utilized for this examination: 1. Automated exposure control 2. Adjustment of the mA and/or kV according to patient size 3. Use of iterative reconstruction technique Electronically signed by: Sherry Leyva MD (08/19/2018 12:41 PM) [place] [id number]
[2018-08-19 12:57] LABS: ANISOCYTOSIS SLIGHT; OVALOCYTES OCC; PLT ESTIMATE ADEQUATE (ADEQUATE)
[2018-08-19 12:58] LABS: SCHISTOCYTES FEW
[2018-08-19 13:11] LABS: INFLUENZA A PATIENT NEGATIVE (NEGATIVE); INFLUENZA B PATIENT NEGATIVE (NEGATIVE)
[2018-08-19 14:13] LABS: BILIRUBIN,URINE NEG (NEG); CLARITY,URINE TURBID; COLOR,URINE YELLOW; GLUCOSE,URINE NEG (NEG); NITRITE,URINE NEG (NEG); UROBILINOGEN,URINE 0.2 mg/dL (0.2 mg/dL)
[2018-08-19 14:14] LABS: BACTERIA,URINE MOD /HPF (0-FEW); GRANULAR CASTS,URINE FEW /HPF; HYALINE CASTS, URINE FEW /HPF; SQUAMOUS EPITHELIAL CELL,UR FEW /LPF; WBC,URINE TNTC /HPF (0-4)
[2018-08-19] MEDS ORDERED: NITR100C6 PO (14:39)
[2018-08-19] MEDS ORDERED: IV NORMAL SALINE 50ML 50 ML ONE (14:45)
[2018-08-19] MEDS ORDERED: cefTRIAXone SODIUM 1 GM VIAL ONE (14:45)
[2018-08-19] MEDS ORDERED: FUROSEMIDE 40 MG/4 ML VIAL IVP ONE (15:00)
[2018-08-19] MEDS ORDERED: AZITHROMYCIN 500 MG in IV NORMAL SALINE 250ML 250 ML IV ONE (15:15)
[2018-08-19] MEDS ORDERED: IV NORMAL SALINE 250ML 250 ML ONE (15:24)
[2018-08-19] MEDS ORDERED: AZITHROMYCIN 500 MG VIAL. IV ONE (15:24)
--- NOTE | 2018-08-19 18:35 | HP ---
ADMIT DATE: 08/19/2018 HISTORY OF PRESENT ILLNESS: The patient is an 83-year-old male patient, who was brought to the Emergency Room with altered mental status. Apparently, the patient has been more drowsy and difficult to arouse for the last 2 days. His family tells me that he is not as alert as he is normally is. He is speaking more slowly and has some slurring of words. He answers questions appropriately. He has not exhibited any focal weakness. He has no fever at home. Denied any chills, denied any chest pain or discomfort. He was found to be extremely hypoxic with oxygen saturation of only 70 and I put him on couple of liters and his oxygen saturation improved to 190. He was extensively investigated in the Emergency Room. Chest x-ray showing extensive infiltrate and/or edema in the perihilar and basilar regions, in particular more focal dense consolidation or effusion in the left lung base. The patient apparently temperature was normal. In the Emergency Room by the time he arrived to the hospital, he was hypothermic with temperature of only 94 and therefore the patient was transferred to the ICU, was started on a Gisell Hugger. His lab work in the Emergency Room showed that his white cell count was normal at 10,600. His serology showed negative influenza A and B. His chemistry showed that he has acute kidney injury. His creatinine has dramatically risen to 2.4 from his most recent admission as on 06/19/2018. His creatinine was 1.1 and BUN 17. Apparently, the patient was given 40 mg of Lasix and was started on ceftriaxone as well as Zithromax for possible community-acquired pneumonia. PAST MEDICAL HISTORY: Significant for type 2 diabetes mellitus, hypertension, hyperlipidemia, coronary artery disease, status post coronary bypass graft surgery. About 8 years ago he has left below-knee amputation, has tremors of his hands, which seemed to be more consistent with Parkinson's disease rather than essential tremors and in fact he was seen by Dr. Friedman and was started on Requip. PAST SURGICAL HISTORY: Significant for bilateral cataract extraction, tonsillectomy, cholecystectomy, left below knee amputation and colonoscopy x 2 as well as placement of an inferior vena cava recently. He also had an upper GI endoscopy done recently at [facility]. ALLERGIES: He has no known drug allergies. FAMILY HISTORY: He has 2 brothers who are older, one older sister and one younger sister. His father at the age of 73 because of myocardial infarction. His mother at age of 44 because of congestive heart failure. SOCIAL HISTORY: He is , has been with his for the last 60 years. He has 2 sons and 2 daughters. He quit smoking in 1988. He drinks alcohol very occasionally. 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 MEDICATIONS: He is currently on following medications: He is on cetirizine 10 mg once a day, loratadine 10 mg once a day, nitrofurantoin monohydrate 100 mg twice a day, atorvastatin calcium 80 mg at bedtime, metoprolol succinate 12.5 mg once a day, amlodipine 10 mg once a day, losartan potassium 100 mg daily, aspirin 81 mg once a day, gabapentin 100 mg twice a day, gabapentin 600 mg. He actually was 100 mg twice a day and 100 mg 4 times a day. He is on hydrochlorothiazide 12.5 mg once a day. He has NovoLog insulin per insulin sliding scale before meals and Lantus insulin 70 units at bedtime. REVIEW OF SYSTEMS: As per history of present illness. PHYSICAL EXAMINATION: GENERAL: On arrival to the Emergency Room, he was somewhat lethargic, but arousable. He does respond appropriately. There is no pallor, jaundice, cyanosis, or thyromegaly. No jugular venous distension. No lower limb edema. VITAL SIGNS: His heart rate was 62, blood pressure was 117/54, temperature was 98.4, respiratory rate was 24, and oxygen saturation was 94%. Initially, his oxygen was only 88% on room air and increased to 92% on 2 liters by nasal cannula. HEAD, EYES, EARS, NOSE, AND THROAT: Showed normocephalic, atraumatic. NECK: Supple. HEART: Showed normal first and second heart sounds. No gallop, rub or murmur. CHEST: Clear to auscultation. No crepitation or rhonchi. ABDOMEN: Distended, soft, nontender. NEUROLOGIC: He was awake, alert; however, was slow to respond, although responds appropriately. All cranial nerves intact. He moves his upper extremities without difficulty. He has left below knee amputation. 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 LABORATORY DATA: His lab work on arrival showed a white cell count of 10,600, hemoglobin 12, hematocrit 37, MCV 87 and platelet count of 172,000. Serum sodium was 136, potassium 4.6, chloride 100, bicarbonate 23, anion gap of 13, BUN 44, creatinine 2.3, estimated GFR was 27 mL per minute, his glucose 142, calcium was 9. Total bilirubin, AST, ALT, alkaline phosphatase were slightly elevated. His troponin was slightly elevated at 0.024. His BNP was 7736. Total protein was 6.9, albumin 3. His urinalysis showed the urine was yellow, turbid with a pH of 5, specific gravity of 1.015. There was large amount of protein, negative for glucose, trace of ketones, moderate amount of blood, negative for nitrite, moderate amount of leukocyte esterase. There was 3-5 rbc's, too numerous to count wbc's, moderate amount of bacteria. His CT scan of the head showed that there is prominence of the cortical sulci and ventricular system compatible with age-related atrophy. There are areas of low attenuation in both periventricular deep white matter suggesting small vessel ischemic changes. Normal gutierrez-white differentiation is maintained. There is no extraaxial fluid collection, intraparenchymal hemorrhage or mass lesion. The visualized portions of the orbits, paranasal sinuses and mastoid air cells appear clear. The calvarium is intact. With the conclusion the patient has age-appropriate atrophy without any acute intracranial process. His chest x-ray showed the heart size appears enlarged. There are extensive airspace opacities in both lungs predominantly perihilar and basilar more focal consolidation and effusion in the left lung base, no apparent pneumothorax. IMPRESSION: In summary, this is an 83-year-old male patient, who was admitted with altered mental status and was found to have acute on congestive heart failure, questionable community-acquired pneumonia, urinary tract infection and hypothermia. He apparently was given 40 mg of Lasix in the Emergency Room; however, he was found also to have acute kidney injury. Creatinine has risen to 2.3 from baseline of 1. PLAN: My plan is to admit him to the ICU, start him on Gisell Hugger to rewarming as his rectal temperature was only 94. The patient did complain that he is very cold. I will check another troponin at the time of this dictation as I am concerned that he might have myocardial infarction. Meanwhile, we will continue with his Rocephin and Zithromax for community-acquired pneumonia and urinary tract infection. I will consult the project lead and I will hold some of his home medications that might be nephrotoxic. PATY ZELAYA MD DR: DAYNA/favio JOB#: [id number] / [id number]
[2018-08-19] MEDS ORDERED: GABA-586 PO (21:17)
[2018-08-19] MEDS ORDERED: CEPH-264 PO (21:18)
[2018-08-19] MEDS: GABAPENTIN 100 MG CAPSULE. PO SCH (21:26)
[2018-08-19] MEDS: ATORVASTATIN CALCIUM 20 MG TABLET PO SCH (21:26)
[2018-08-19] MEDS: INSULIN GLARGINE 300 UNITS/3 ML INSULN.PEN. SQ SCH (21:34)
[2018-08-20] VITALS (22 sets, daily range): BP systolic 93–133; BP diastolic 39–60
[2018-08-20] MEDS ORDERED: IPRATRPIUM/ALBUTEROL 0.5/2.5MG 3 ML NEBU. ONE (05:04)
[2018-08-20] MEDS: IPRATRPIUM/ALBUTEROL 0.5/2.5MG 3 ML NEBU. NEB SCH ×4 (05:11→20:17)
[2018-08-20 06:34] LABS: BASO % 0 % (0-3); EOS # 0.2 x10^3/uL (0.0-0.7); EOS % 2 % (0-3); HEMATOCRIT 33.1 % (39.0-53.0); LYMPH % 13 % (24-48); MEAN CORPUSCULAR HEMOGLOBIN 28 pg (25-35); MEAN CORPUSCULAR HGB CONC 33 g/dL (31-37); MEAN CORPUSCULAR VOLUME 85 fL (79-100); MONO # 0.4 x10^3/uL (0.0-1.1); MONO % 4 % (0-9); NEUT # 6.7 x10^3uL (1.8-7.7); NEUT % 81 % (31-73); PLATELET COUNT 205 x10^3/uL (140-400); RED BLOOD COUNT 3.88 x10^6/uL (4.30-5.70); RED CELL DISTRIBUTION WIDTH 21.5 % (11.5-14.5); WHITE BLOOD COUNT 8.3 x10^3/uL (4.0-11.0)
[2018-08-20 07:02] LABS: ALBUMIN 2.7 g/dL (3.4-5.0); ALBUMIN/GLOBULIN RATIO 0.7 (1.0-1.7); CALCIUM 8.8 mg/dL (8.5-10.1); CREATININE 2.2 mg/dL (0.7-1.3); GFR 28.8; POTASSIUM 4.3 mmol/L (3.5-5.1); TOTAL BILIRUBIN 0.4 mg/dL (0.2-1.0); TOTAL PROTEIN 6.4 g/dL (6.4-8.2)
--- NOTE | 2018-08-20 08:30 | PDOC2 ---
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 He had been reportedly drowsy and difficult to arouse as well as speaking more slowly and slurring words. On evaluation in the ED he was found to have elevated BNP as well as CXR revealing edema vs infiltrate. He was admitted for treatment and consult called. Has been confused off and on, significantly worse at night per nursing report and intermittently talking and calling out in his room while alone. He is currently awake and aware but poor historian. 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 He reports his breathing is "bad" but is unable to tell me for how long. He denies chest pain, palpitations, or syncope. He was very active prior to his admission in May for PE which was followed by a stint in [facility]. He has been residing at home since June. Past Medical History diabetes mellitus, hypertension, hyperlipidemia, coronary artery disease, below left knee amputation, intermittent tremor of the hands, PE s/p IVC filter , iron deficiency anemia requiring transfusion and Venofer within the last 18 months, UTI. CKD Cr in Apr 1.5, 1.1 in Jun, psoriasis, eczema MPI 04/05/17 Probable normal myocardial perfusion scan with small, slightly variable, apical defect likely secondary to apical thinning artifact. Summed stress score is 2. Normal left ventricualr systolic function. EF 67% No stress induced chest pain no arrhythmias no stress induced ECG changes No significant change from prior study report Echo 04/05/17 Normal EF 55-60% mild LVH no significant regional wall motion abnormalities Pseudonormalization suggestive of stage II diastolic dysfunction Moderate LAE Trace MR CABG 2003 Lau to LAD, SVG to OM1, SVG to Right acute marginal and right PDA in sequential fashion Past Surgical History cholecystectomy, tonsillectomy, left below-knee amputation, and cataract extraction. Family History His father at the age of 73 from myocardial infarction. His mother at the age of 44 because of congestive heart failure. Social History He denies smoking, but he drinks alcohol occasionally, denies illicit drugs Current Medications Current Medications Ceftriaxone Sodium 1 gm/ Sodium Chloride 50 ml @ 100 mls/hr 1X ONCE IV Last administered on 08/19/18at 14:53; Start 08/19/18 at 15:00; Stop 08/19/18 at 15:00; Status DC Sodium Chloride 50 ml @ As Directed STK-MED ONCE .ROUTE ; Start 08/19/18 at 14:45 ; Stop 08/19/18 at 14:46; Status DC Ceftriaxone Sodium (Rocephin) 1 gm STK-MED ONCE .ROUTE ; Start 08/19/18 at 14:45 ; Stop 08/19/18 at 14:46; Status DC Ceftriaxone Sodium 1 gm/ Sodium Chloride 50 ml @ 100 mls/hr 1X ONCE IV ; Start 08/19/18 at 15:00; Stop 08/19/18 at 15:00; Status DC Furosemide (Lasix) 40 mg 1X ONCE IVP Last administered on 08/19/18at 14:58; Start 08/19/18 at 15:00; Stop 08/19/18 at 15:01; Status DC Azithromycin 500 mg/Sodium Chloride 250 ml @ 250 mls/hr 1X ONCE IV Last administered on 08/19/18at 15:33; Start 08/19/18 at 15:15; Stop 08/19/18 at 16:14; Status DC Sodium Chloride 250 ml @ As Directed STK-MED ONCE .ROUTE ; Start 08/19/18 at 15: 24; Stop 08/19/18 at 15:25; Status DC Azithromycin (Zithromax) 500 mg STK-MED ONCE IV ; Start 08/19/18 at 15:24; Stop 08/19/18 at 15:25; Status DC Gabapentin (Neurontin) 100 mg BID PO Last administered on 08/19/18at 21:26; Start 08/19/18 at 21:00 Insulin Glargine (Lantus) 17 units QHS SQ Last administered on 08/19/18at 21:34; Start 08/19/18 at 21:00 Aspirin (Children'S Aspirin) 81 mg DAILYWBKFT PO ; Start 08/20/18 at 08:00 Atorvastatin Calcium (Lipitor) 80 mg QHS PO Last administered on 08/19/18at 21:26 ; Start 08/19/18 at 21:00 Cetirizine HCl (ZyrTEC) 10 mg DAILY PO ; Start 08/20/18 at 09:00 Azithromycin 500 mg/Sodium Chloride 250 ml @ 250 mls/hr Q24H IV ; Start at 15:30 Ceftriaxone Sodium 1 gm/ Sodium Chloride 50 ml @ 100 mls/hr Q24H IV ; Start 08/19/18 at 18:45; Stop 08/19/18 at 18:45; Status DC Ceftriaxone Sodium 1 gm/ Sodium Chloride 50 ml @ 100 mls/hr Q24H IV ; Start 08/20/18 at 15:00 Azithromycin (Zithromax) 250 mg DAILY PO ; Start 08/20/18 at 09:00; Stop 08/20/18 at 09:00; Status DC Dopamine HCl/ Dextrose 250 ml @ 6.226 mls/ hr CONT PRN IV SEE I/O RECORD; Start 08/19/18 at 19:00 Albuterol/ Ipratropium (Duoneb) 3 ml RTQID NEB Last administered on 08/20/18at 05 :11; Start 08/20/18 at 08:00 Albuterol/ Ipratropium (Duoneb) 3 ml STK-MED ONCE .ROUTE ; Start 08/20/18 at 05: 04; Stop 08/20/18 at 05:05; Status DC Active Scripts Active Reported Keflex (Cephalexin) 500 Mg Capsule 1 Cap PO TID STOP DATE 08/21/18 Gabapentin (Gabapentin) 300 Mg Capsule 300 Mg PO HS Cetirizine Hcl 10 Mg Tablet 1 Tab PO DAILY PRN Novolog (Insulin Aspart) 100 Unit/1 Ml Cartridge 1 Unit SQ PRN PRN Lantus Solostar (Insulin Glargine,Hum.rec.anlog) 100 Unit/1 Ml Insuln.pen 17 Unit SQ QHS Aspirin 81 Mg Tab.chew 81 Mg PO DAILY Gabapentin 600 Mg Tablet 600 Mg PO QID Gabapentin (Gabapentin) 100 Mg Capsule 100 Mg PO TID Amlodipine Besylate 10 Mg Tablet 1 Tab PO DAILY Hydrochlorothiazide Tablet (Hydrochlorothiazide) 12.5 Mg Tablet 1 Tab PO DAILY Losartan Potassium 100 Mg Tablet 100 Mg PO DAILY Toprol Xl (Metoprolol Succinate) 25 Mg Tab.er.24h 12.5 Mg PO DAILY Loratadine 10 Mg Tablet 10 Mg PO DAILY Atorvastatin Calcium 80 Mg Tablet 80 Mg PO QHS Allergies: Coded Allergies: No Known Drug Allergies (Unverified , 09/18/14) General: YES: Other (drowsy and intermittently confused) PSYCHOLOGICAL ROS: YES: Irritablity Hematological and Lymphatic: YES: Blood Clots Respiratory: YES: Cough, Sputum Changes Neurological: YES: Confusion, Tremors Skin: YES: Eczema, Other (psoriasis) General: Alert, Cooperative, No acute distress Lungs: Other (decreased throughout, occasional basilar crackles and expiratory wheeze) Heart: Normal S1, Normal S2, Other (no gallops, clicks or rubs, no obvious murmurs) Abdomen: Normal bowel sounds, Soft, No tenderness Extremities: Other (left BKA, trace right lower ext edema) Neuro: Normal speech, Other (mild tremor) VITALS Vital Signs Date Time Temp Pulse Resp B/P (MAP) Pulse Ox O2 Delivery O2 Flow Rate FiO2 08/20/18 06:08 98.8 84 17 128/60 (82) 95 Nasal Cannula 2.0 Labs Laboratory Tests Test 08/19/18 11:20 08/19/18 12:40 08/19/18 13:49 08/19/18 17:30 White Blood Count 10.6 x10^3/uL (4.0-11.0) Red Blood Count 4.25 x10^6/uL (4.30-5.70) Hemoglobin 12.1 g/dL (13.0-17.5) Hematocrit 36.9 % (39.0-53.0) Mean Corpuscular Volume 87 fL (79-100) Mean Corpuscular Hemoglobin 28 pg (25-35) Mean Corpuscular Hemoglobin Concent 33 g/dL (31-37) Red Cell Distribution Width 21.1 % (11.5-14.5) Platelet Count 172 x10^3/uL (140-400) Neutrophils (%) (Auto) 92 % (31-73) Lymphocytes (%) (Auto) 3 % (24-48) Monocytes (%) (Auto) 4 % (0-9) Eosinophils (%) (Auto) 1 % (0-3) Basophils (%) (Auto) 0 % (0-3) Neutrophils # (Auto) 9.7 x10^3uL (1.8-7.7) Lymphocytes # (Auto) 0.4 x10^3/uL (1.0-4.8) Monocytes # (Auto) 0.4 x10^3/uL (0.0-1.1) Eosinophils # (Auto) 0.1 x10^3/uL (0.0-0.7) Basophils # (Auto) 0.0 x10^3/uL (0.0-0.2) Platelet Estimate Adequate (ADEQUATE) Anisocytosis Slight Ovalocytes Occ Schistocytes Few Sodium Level 136 mmol/L (136-145) Potassium Level 4.6 mmol/L (3.5-5.1) Chloride Level 100 mmol/L (98-107) Carbon Dioxide Level 23 mmol/L (21-32) Anion Gap 13 (6-14) Blood Urea Nitrogen 44 mg/dL (8-26) Creatinine 2.3 mg/dL (0.7-1.3) Estimated GFR (Cockcroft-Gault) 27.4 BUN/Creatinine Ratio 19 (6-20) Glucose Level 142 mg/dL (70-99) Calcium Level 9.0 mg/dL (8.5-10.1) Total Bilirubin 0.4 mg/dL (0.2-1.0) Aspartate Amino Transf (AST/SGOT) 60 U/L (15-37) Alanine Aminotransferase (ALT/SGPT) 59 U/L (16-63) Alkaline Phosphatase 128 U/L (46-116) Troponin I Quantitative 0.024 ng/mL (0-0.055) 0.065 ng/mL (0-0.055) TL-Dni-C-Type Natriuretic Peptide 7736 pg/mL (0-449) Total Protein 6.9 g/dL (6.4-8.2) Albumin 3.0 g/dL (3.4-5.0) Albumin/Globulin Ratio 0.8 (1.0-1.7) Influenza Type A (Rapid) Negative (NEGATIVE) Influenza Type B (Rapid) Negative (NEGATIVE) Urine Collection Type Unknown Urine Color Yellow Urine Clarity Turbid Urine pH 5.0 Urine Specific [place] 1.015 Urine Protein 100 mg/dl (NEG-TRACE) Urine Glucose (UA) Neg mg/dL (NEG) Urine Ketones (Stick) 15 mg/dL (NEG) Urine Blood Mod (NEG) Urine Nitrite Neg (NEG) Urine Bilirubin Neg (NEG) Urine Urobilinogen Dipstick 0.2 mg/dL (0.2 mg/dL) Urine Leukocyte Esterase Mod (NEG) Urine RBC 3-5 /HPF (0-2) Urine WBC Tntc /HPF (0-4) Urine Squamous Epithelial Cells Few /LPF Urine Transitional Epithelial Cells Few /LPF Urine Bacteria Mod /HPF (0-FEW) Urine Cellular Casts Few /HPF Urine Hyaline Casts Few /HPF Urine Granular Casts Few /HPF Test 08/19/18 18:35 08/19/18 20:54 08/19/18 21:27 08/20/18 05:35 Lactic Acid Level 0.9 mmol/L (0.4-2.0) Troponin I Quantitative 0.082 ng/mL (0-0.055) Glucose (Fingerstick) 182 mg/dL (70-99) White Blood Count 8.3 x10^3/uL (4.0-11.0) Red Blood Count 3.88 x10^6/uL (4.30-5.70) Hemoglobin 11.0 g/dL (13.0-17.5) Hematocrit 33.1 % (39.0-53.0) Mean Corpuscular Volume 85 fL (79-100) Mean Corpuscular Hemoglobin 28 pg (25-35) Mean Corpuscular Hemoglobin Concent 33 g/dL (31-37) Red Cell Distribution Width 21.5 % (11.5-14.5) Platelet Count 205 x10^3/uL (140-400) Neutrophils (%) (Auto) 81 % (31-73) Lymphocytes (%) (Auto) 13 % (24-48) Monocytes (%) (Auto) 4 % (0-9) Eosinophils (%) (Auto) 2 % (0-3) Basophils (%) (Auto) 0 % (0-3) Neutrophils # (Auto) 6.7 x10^3uL (1.8-7.7) Lymphocytes # (Auto) 1.0 x10^3/uL (1.0-4.8) Monocytes # (Auto) 0.4 x10^3/uL (0.0-1.1) Eosinophils # (Auto) 0.2 x10^3/uL (0.0-0.7) Basophils # (Auto) 0.0 x10^3/uL (0.0-0.2) Sodium Level 139 mmol/L (136-145) Potassium Level 4.3 mmol/L (3.5-5.1) Chloride Level 103 mmol/L (98-107) Carbon Dioxide Level 25 mmol/L (21-32) Anion Gap 11 (6-14) Blood Urea Nitrogen 42 mg/dL (8-26) Creatinine 2.2 mg/dL (0.7-1.3) Estimated GFR (Cockcroft-Gault) 28.8 BUN/Creatinine Ratio 19 (6-20) Glucose Level 124 mg/dL (70-99) Calcium Level 8.8 mg/dL (8.5-10.1) Total Bilirubin 0.4 mg/dL (0.2-1.0) Aspartate Amino Transf (AST/SGOT) 42 U/L (15-37) Alanine Aminotransferase (ALT/SGPT) 46 U/L (16-63) Alkaline Phosphatase 113 U/L (46-116) HI-Cor-C-Type Natriuretic Peptide 69016 pg/mL (0-449) Total Protein 6.4 g/dL (6.4-8.2) Albumin 2.7 g/dL (3.4-5.0) Albumin/Globulin Ratio 0.7 (1.0-1.7) Test 08/20/18 07:27 Glucose (Fingerstick) 116 mg/dL (70-99) Images CXR - IMPRESSION: 1. Limited exam. 2. Extensive infiltrate and/or edema in the perihilar and basilar regions in particular. More focal dense consolidation and effusion left lung base. CT head Impression: 1. Age-appropriate atrophy without any acute intracranial process. EKG sinus rhythm with non specific abnormalities. No acute ischemic changes. Assessment/Plan 1. Acute respiratory failure secondary to acute heart failure and possible pneumonia - on abx per PCP. LV function previously normal. Will check echo for LV function. Maintaining sao2 on 2 liters nasal cannula. 2. Altered mental status - likely increased by hypoxia with questionable underlying dementia. Reportedly normal mentation as of April. No acute abn on CT. No significant carotid disease by duplex in 2016. 3. 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 Currently with mild troponin elevation. No acute ischemic changes on EKG. 4. acute renal failure on chronic kidney disease - baseline Cr between 1.1 and 1.5 5. UTI - mgmt per PCP 6. hypertension - borderline pressures currently, antihypertensives on hold. 7. hyperlipidemia - check lipids 8. diabetes mellitus type 2 - per PCP 9. peripheral arterial disease s/p Left BKA RICKY MATHIAS MD 08/20/18 1622: CONSULT Assessment/Plan Pt. seen and examined. Agree with above VISUAL JOURNALIST note. Pt. appears dehydrated. Neck veins flat. No edema. Will plan for IVF Tx of PNA. EF wnl on echo. Supportive care. LEIDY GARCIA APRN Aug 20, 2018 08:30 RICKY MATHIAS MD Aug 20, 2018 16:22
[2018-08-20] MEDS: CETIRIZINE HCL 10 MG TABLET PO SCH (08:31)
[2018-08-20] MEDS: ASPIRIN 81 MG TAB.CHEW PO SCH (08:31)
[2018-08-20] MEDS: GABAPENTIN 100 MG CAPSULE. PO SCH ×2 (08:31→19:51)
[2018-08-20] MEDS ORDERED: AZITHROMYCIN 250 MG TABLET. PO SCH ×2 (09:00→17:00)
--- NOTE | 2018-08-20 11:51 | RAD ---
PQRS Compliance statement: One or more of the following individualized dose reduction techniques were utilized for this examination: 1. Automated exposure control. 2. Adjustment of the mA and/or kV according to patient size. 3. Use of iterative reconstruction technique. Indication:chf vs pneumonia, AFIB, HYPERTENSION TECHNIQUE: CT chest without IV contrast with multiplanar reformats. COMPARISON: None FINDINGS: Heart is normal in size. No pericardial effusion. CABG changes noted. Small bowel right and small to moderate left pleural effusion noted. Diffuse atherosclerotic disease is seen of the thoracic and upper abdominal aorta. Moderate-sized sliding hiatal hernia. No enlarged axillary or mediastinal adenopathy. Evaluation of hilar lymphadenopathy is limited due to lack of IV contrast. Significant motion artifact is seen in the lungs limiting optimal evaluation. Consolidations are seen in the bilateral lower lobes with air bronchograms. Patchy opacities are seen in the right middle lobe. No pneumothorax. Visualized noncontrast sections through the liver, spleen, gallbladder, pancreas, adrenals and kidneys within normal limits. Splenic artery as described disease. No interlobular septal thickening seen. 7 mm nodule in the right upper lobe (series 2 image 12). Step-off deformity seen at the sternal incision no break in the sternotomy wires. Mild dextroscoliosis of the thoracic spine. Anterior wedge-shaped compression deformity seen of the T12 vertebral body with no retropulsion the spinal canal most likely subacute to chronic. IMPRESSION: Significant motion artifact limiting optimal evaluation. 1. Small right and small to moderate left pleural effusion. 2. Consolidations in the bilateral lower lobes may be secondary to passive atelectasis from adjacent pleural effusion or pneumonia. 3. Patchy opacities in the right lower lobe and right middle lobe likely secondary to aspiration or pneumonia. 4. Right upper lobe nodule (7 mm). Follow-up CT chest in 6 months recommended. 5. Moderate-sized sliding hiatal hernia. Electronically signed by: Jay Butler DO (08/20/2018 11:48 AM) [id number]
[2018-08-20] MEDS ORDERED: ACETAMINOPHEN 325 MG TABLET PO ONE (14:56)
[2018-08-20] MEDS ORDERED: ACETAMINOPHEN 325 MG TABLET PO PRN (15:00)
--- NOTE | 2018-08-20 15:09 | CARD ---
MR#: [id number] Date of Study: 08/20/2018 Ordering Physician: LEIDY GARCIA, Referring Physician: PATY ZELAYA Tech: Martha Thompson DINORA APPROVED REPORT EXAM: Two-dimensional and M-mode echocardiogram with Doppler and color Doppler. Other Information Quality : AverageHR: 74bpm Rhythm : NSR INDICATION Congestive Heart Failure 2D DIMENSIONS RVDd3.3 (2.9-3.5cm)Left Atrium(2D)4.8 (1.6-4.0cm) IVSd1.0 (0.7-1.1cm)Aortic Root(2D)3.4 (2.0-3.7cm) LVDd5.6 (3.9-5.9cm)LVOT Diameter2.2 (1.8-2.4cm) PWd0.9 (0.7-1.1cm)LVDs3.7 (2.5-4.0cm) FS (%) 34.1 %SV94.9 ml LVEF(%)60.0 (>50%) Aortic Valve AoV Peak Hiram.124.9cm/sAoV VTI24.5cm AO Peak GR.6.2mmHgLVOT Peak Hiram.99.6cm/s LVOT VTI 17.17cmAO Mean GR.3mmHg BHARATHI (VMAX)2.17ix3NXY (VTI)2.61cm2 Mitral Valve MV E Jpdullwy551.7cm/sMV DECEL AETF529pg MV A Bkocsnep97.2cm/sE/A Ratio2.1 MV A Bprhncom41go Pulmonary Valve PV Peak Mqkitfwu506.3cm/sPV Peak Grad.5mmHg Tricuspid Valve TR P. Jcsvzihv752pp/sRAP JCHXVTED3xmDi TR Peak Gr.52exLpPHPN56euMm LEFT VENTRICLE The left ventricle is normal size. There is normal left ventricular wall thickness. Left ventricle sy stolic function is normal. The Ejection Fraction is 55-60%. There is normal LV segmental wall motion. Transmitral Doppler flow pattern is abnormal. RIGHT VENTRICLE The right ventricle is normal size. There is normal right ventricular wall thickness. The right ventr icular systolic function is normal. ATRIA The left atrium is mild to moderately dilated. The right atrium is mildly dilated. The interatrial se ptum is intact with no evidence for an atrial septal defect or patent foramen ovale as noted on 2-D o r Doppler imaging. AORTIC VALVE The aortic valve is mildly calcified. The aortic valve is trileaflet. Doppler and Color Flow revealed no significant aortic regurgitation. There is no significant aortic valvular stenosis. MITRAL VALVE The mitral valve is thickened but opens well. There is no evidence of mitral valve prolapse. There is no mitral valve stenosis. Doppler and Color-flow revealed trace to mild mitral regurgitation. TRICUSPID VALVE The tricuspid valve is normal in structure and function. Doppler and Color Flow revealed mild tricusp id regurgitation The PA pressure was estimated at 42 mmHg. There is no tricuspid valve prolapse or ve getation. There is no tricuspid valve stenosis. PULMONIC VALVE The pulmonic valve is not well visualized. GREAT VESSELS The aortic root is normal in size. The ascending aorta is normal in size. PERICARDIAL EFFUSION There is no evidence of significant pericardial effusion. Critical Notification Critical Value: No <Conclusion> The left ventricle is normal size. Left ventricle systolic function is normal. The Ejection Fraction is 55-60%. There is no significant aortic valvular stenosis. Doppler and Color Flow revealed no significant aortic regurgitation. Doppler and Color-flow revealed trace to mild mitral regurgitation. Doppler and Color Flow revealed mild tricuspid regurgitation The PA pressure was estimated at 42 mmHg. Signed by : Esteban Anderson MD Electronically Approved : 08/20/2018 15:08:45
[2018-08-20] MEDS ORDERED: AZITHROMYCIN 500 MG in IV NORMAL SALINE 250ML 250 ML IV SCH (15:30)
[2018-08-20] MEDS ORDERED: IV NORMAL SALINE 1,000ML 1,000 ML IV ONE (16:30)
[2018-08-20] MEDS: LACTOBACILLUS RHAMNOSUS GG 1 CAPSULE. PO SCH (19:51)
[2018-08-20] MEDS: ATORVASTATIN CALCIUM 20 MG TABLET PO SCH (19:51)
[2018-08-20] MEDS: INSULIN GLARGINE 300 UNITS/3 ML INSULN.PEN. SQ SCH (20:35)
[2018-08-21] VITALS (15 sets, daily range): BP systolic 114–156; BP diastolic 48–83
--- NOTE | 2018-08-21 02:15 | PN ---
DATE: 08/20/2018 SUBJECTIVE: The patient is resting, slightly propped up in bed, in no apparent distress. Nursing staff stated that he is very confused, hallucinating, agitated, attempts to get out of the bed, seeing things that are not there, talking about Viano that needs to be moved. PHYSICAL EXAMINATION: GENERAL: When I examined him; however, this afternoon, he was very lethargic, but arousable. He opens his eyes, does not seem to be in any respiratory distress, slightly pale, but no jaundice, cyanosis, or thyromegaly. No jugular venous distension. No lower limb edema. VITAL SIGNS: His heart rate was 72, blood pressure 116/54, temperature was 98.9, respiratory rate was 18 and oxygen saturation was 96% on 2 liters of oxygen by nasal cannula. HEAD, EYES, EARS, NOSE AND THROAT: Showed normocephalic, atraumatic. NECK: Supple. HEART: Showed normal first and second heart sounds. No gallop, rub or murmur. CHEST: Showed central trachea, equally reduced expansion, reduced air entry, vesicular sounds with bilateral basal crepitation. I could not appreciate any rhonchi. ABDOMEN: Distended, soft, nontender. NEUROLOGIC: He was lethargic, but arousable. All cranial nerves intact. He moves upper extremities to much good extent than lower extremities, has left below-knee amputation. He is mostly bedbound. He has an indwelling Blevins catheter. SKIN: His skin disease seemed to be worse. His intake over the last 24 hours was 490, output was 1500. LABORATORY DATA: As of this morning, his white cell count was 8300, hemoglobin 11, hematocrit 33, MCV 85 and platelet count 205,000. His chemistry showed a serum sodium 139, potassium 4.3, chloride 103, bicarbonate 25, anion gap of 11, BUN 42, creatinine 2.2. Estimated GFR was 29 mL per minute. His glucose was 124, calcium was 8.8. Total bilirubin, AST, ALT, alkaline phosphatase were normal. His beta natriuretic peptide was 11,650. His total protein was 6.4, albumin was 2.7. ASSESSMENT: 1. Altered mental status. 2. Acute on chronic heart failure. 3. Questionable community-acquired pneumonia. 4. Urinary tract infection. 5. Hypothermia. His temperature has normalized. In fact, today, temperature is 98.9. His creatinine has slightly improved from 2.3 to 2.2. BUN has hardly changed. He was seen by the certified nurses' aide and he recommended IV fluid. He did have an echocardiogram done this morning, which showed that his left ventricle size is normal. His left ventricular systolic function is normal, ejection fraction is 55-60%. There is no significant aortic valvular stenosis. Doppler and color flow revealed no significant aortic regurgitation, mild mitral regurgitation and mild tricuspid regurgitation. Pulmonary artery pressure was estimated at 42 mmHg. We will continue with IV fluid. Continue with IV antibiotic and repeat all his lab work tomorrow. PATY ZELAYA MD DR: DAYNA/favio JOB#: [id number] / [id number]
[2018-08-21] MEDS: IPRATRPIUM/ALBUTEROL 0.5/2.5MG 3 ML NEBU. NEB SCH ×4 (05:54→20:25)
[2018-08-21 06:35] LABS: BASO % 0 % (0-3); EOS # 0.4 x10^3/uL (0.0-0.7); EOS % 6 % (0-3); HEMATOCRIT 33.2 % (39.0-53.0); HEMOGLOBIN 10.8 g/dL (13.0-17.5); LYMPH % 14 % (24-48); MEAN CORPUSCULAR HEMOGLOBIN 28 pg (25-35); MEAN CORPUSCULAR HGB CONC 33 g/dL (31-37); MEAN CORPUSCULAR VOLUME 86 fL (79-100); MONO # 0.6 x10^3/uL (0.0-1.1); MONO % 8 % (0-9); NEUT # 5.1 x10^3uL (1.8-7.7); NEUT % 72 % (31-73); PLATELET COUNT 228 x10^3/uL (140-400); RED BLOOD COUNT 3.85 x10^6/uL (4.30-5.70); WHITE BLOOD COUNT 7.2 x10^3/uL (4.0-11.0)
[2018-08-21 06:43] LABS: ALBUMIN 2.7 g/dL (3.4-5.0); ALBUMIN/GLOBULIN RATIO 0.7 (1.0-1.7); GFR 32.1; POTASSIUM 3.4 mmol/L (3.5-5.1); TOTAL BILIRUBIN 0.4 mg/dL (0.2-1.0); TOTAL PROTEIN 6.6 g/dL (6.4-8.2)
[2018-08-21] MEDS ORDERED: POTASSIUM CHLORIDE 20 MEQ/15 ML ORAL LIQUID. PO ONE (07:45)
[2018-08-21] MEDS: ASPIRIN 81 MG TAB.CHEW PO SCH (08:10)
[2018-08-21] MEDS: LACTOBACILLUS RHAMNOSUS GG 1 CAPSULE. PO SCH ×2 (08:10→20:08)
[2018-08-21] MEDS: GABAPENTIN 100 MG CAPSULE. PO SCH ×2 (08:10→20:08)
[2018-08-21] MEDS: CETIRIZINE HCL 10 MG TABLET PO SCH (08:10)
--- NOTE | 2018-08-21 11:53 | PDOC ---
PROGRESS NOTES Diagnosis Problem Problems Medical Problems: (1) CHF exacerbation Status: Acute (2) UTI (urinary tract infection) Status: Acute Assessment Problems Medical Problems: (1) CHF exacerbation Status: Acute (2) UTI (urinary tract infection) Status: Acute 1. Acute respiratory failure secondary pneumonia - abx per PCP. LV function remains normal. No overt heart failure by exam. Maintaining sao2 on 2 liters nasal cannula. 2. Altered mental status - likely increased by hypoxia with questionable underlying dementia. Reportedly normal mentation as of April. No acute abn on CT. No significant carotid disease by duplex in 2017. Psych consulting. 3. 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 Currently with mild troponin elevation, demand related. No acute ischemic changes on EKG. Resume aspirin and low dose metoprolol when cleared for oral meds. Could start IV if needed. 4. acute renal failure on chronic kidney disease - baseline Cr between 1.1 and 1.5. Cr today down to 2.0 from 2.4 yesterday after IVF. 5. UTI - mgmt per PCP 6. hypertension - blood pressure controlled currently. all antihypertensives on hold secondary to lower bp and now due to NPO status. 7. dysphagia - NPO pending video swallow. 8. hyperlipidemia - check lipids 9. diabetes mellitus type 2 - per PCP 10. peripheral arterial disease s/p Left BKA Subjective failed swallow eval, continues to have copious sputum, no chest pain, denies dyspnea. remains intermittently confused. Objective Vital Signs Date Time Temp Pulse Resp B/P (MAP) Pulse Ox O2 Delivery O2 Flow Rate FiO2 08/21/18 11:18 88 20 126/54 (78) 97 Nasal Cannula 2.0 08/21/18 06:05 98.0 Intake and Output 08/21/18 06:59 Intake Total 560 ml Output Total 3000 ml Balance -2440 ml Intake Oral 510 ml IV Total 50 ml Output Urine Total 3000 ml Physical Exam General: Alert, Cooperative, No acute distress, intermittently confused. Lungs: Other (decreased bases with few right basilar crackles Heart: Normal S1, Normal S2, Other (no gallops, clicks or rubs, no obvious murmurs) Abdomen: Normal bowel sounds, Soft, No tenderness Extremities: Other (left BKA, trace right lower ext edema) Neuro: Normal speech, Other (mild tremor) Psych: intermittent confusion reorients easily Review of Relevant I have reviewed the following items mckenzie (where applicable) has been applied. Labs Laboratory Tests Test 08/19/18 12:40 08/19/18 13:49 08/19/18 17:30 08/19/18 18:35 Influenza Type A (Rapid) Negative (NEGATIVE) Influenza Type B (Rapid) Negative (NEGATIVE) Urine Collection Type Unknown Urine Color Yellow Urine Clarity Turbid Urine pH 5.0 Urine Specific [place] 1.015 Urine Protein 100 mg/dl (NEG-TRACE) Urine Glucose (UA) Neg mg/dL (NEG) Urine Ketones (Stick) 15 mg/dL (NEG) Urine Blood Mod (NEG) Urine Nitrite Neg (NEG) Urine Bilirubin Neg (NEG) Urine Urobilinogen Dipstick 0.2 mg/dL (0.2 mg/dL) Urine Leukocyte Esterase Mod (NEG) Urine RBC 3-5 /HPF (0-2) Urine WBC Tntc /HPF (0-4) Urine Squamous Epithelial Cells Few /LPF Urine Transitional Epithelial Cells Few /LPF Urine Bacteria Mod /HPF (0-FEW) Urine Cellular Casts Few /HPF Urine Hyaline Casts Few /HPF Urine Granular Casts Few /HPF Nasal Screen MRSA (PCR) Negative (Negative) Troponin I Quantitative 0.065 ng/mL (0-0.055) Lactic Acid Level 0.9 mmol/L (0.4-2.0) Test 08/19/18 20:54 08/19/18 21:27 08/20/18 05:35 08/20/18 07:27 Troponin I Quantitative 0.082 ng/mL (0-0.055) Glucose (Fingerstick) 182 mg/dL (70-99) 116 mg/dL (70-99) White Blood Count 8.3 x10^3/uL (4.0-11.0) Red Blood Count 3.88 x10^6/uL (4.30-5.70) Hemoglobin 11.0 g/dL (13.0-17.5) Hematocrit 33.1 % (39.0-53.0) Mean Corpuscular Volume 85 fL (79-100) Mean Corpuscular Hemoglobin 28 pg (25-35) Mean Corpuscular Hemoglobin Concent 33 g/dL (31-37) Red Cell Distribution Width 21.5 % (11.5-14.5) Platelet Count 205 x10^3/uL (140-400) Neutrophils (%) (Auto) 81 % (31-73) Lymphocytes (%) (Auto) 13 % (24-48) Monocytes (%) (Auto) 4 % (0-9) Eosinophils (%) (Auto) 2 % (0-3) Basophils (%) (Auto) 0 % (0-3) Neutrophils # (Auto) 6.7 x10^3uL (1.8-7.7) Lymphocytes # (Auto) 1.0 x10^3/uL (1.0-4.8) Monocytes # (Auto) 0.4 x10^3/uL (0.0-1.1) Eosinophils # (Auto) 0.2 x10^3/uL (0.0-0.7) Basophils # (Auto) 0.0 x10^3/uL (0.0-0.2) Sodium Level 139 mmol/L (136-145) Potassium Level 4.3 mmol/L (3.5-5.1) Chloride Level 103 mmol/L (98-107) Carbon Dioxide Level 25 mmol/L (21-32) Anion Gap 11 (6-14) Blood Urea Nitrogen 42 mg/dL (8-26) Creatinine 2.2 mg/dL (0.7-1.3) Estimated GFR (Cockcroft-Gault) 28.8 BUN/Creatinine Ratio 19 (6-20) Glucose Level 124 mg/dL (70-99) Calcium Level 8.8 mg/dL (8.5-10.1) Total Bilirubin 0.4 mg/dL (0.2-1.0) Aspartate Amino Transf (AST/SGOT) 42 U/L (15-37) Alanine Aminotransferase (ALT/SGPT) 46 U/L (16-63) Alkaline Phosphatase 113 U/L (46-116) US-Knz-D-Type Natriuretic Peptide 34258 pg/mL (0-449) Total Protein 6.4 g/dL (6.4-8.2) Albumin 2.7 g/dL (3.4-5.0) Albumin/Globulin Ratio 0.7 (1.0-1.7) Triglycerides Level 63 mg/dL (0-150) Cholesterol Level 72 mg/dL (0-200) LDL Cholesterol, Calculated 24 mg/dL (0-100) VLDL Cholesterol, Calculated 12 mg/dL (0-40) Non-HDL Cholesterol Calculated 36 mg/dL (0-129) HDL Cholesterol 36 mg/dL (40-60) Cholesterol/HDL Ratio 2.0 Thyroid Stimulating Hormone (TSH) 6.659 uIU/mL (0.358-3.740) Test 08/20/18 20:21 08/21/18 05:30 08/21/18 07:36 08/21/18 11:23 Glucose (Fingerstick) 108 mg/dL (70-99) 59 mg/dL (70-99) 170 mg/dL (70-99) White Blood Count 7.2 x10^3/uL (4.0-11.0) Red Blood Count 3.85 x10^6/uL (4.30-5.70) Hemoglobin 10.8 g/dL (13.0-17.5) Hematocrit 33.2 % (39.0-53.0) Mean Corpuscular Volume 86 fL (79-100) Mean Corpuscular Hemoglobin 28 pg (25-35) Mean Corpuscular Hemoglobin Concent 33 g/dL (31-37) Red Cell Distribution Width 21.0 % (11.5-14.5) Platelet Count 228 x10^3/uL (140-400) Neutrophils (%) (Auto) 72 % (31-73) Lymphocytes (%) (Auto) 14 % (24-48) Monocytes (%) (Auto) 8 % (0-9) Eosinophils (%) (Auto) 6 % (0-3) Basophils (%) (Auto) 0 % (0-3) Neutrophils # (Auto) 5.1 x10^3uL (1.8-7.7) Lymphocytes # (Auto) 1.0 x10^3/uL (1.0-4.8) Monocytes # (Auto) 0.6 x10^3/uL (0.0-1.1) Eosinophils # (Auto) 0.4 x10^3/uL (0.0-0.7) Basophils # (Auto) 0.0 x10^3/uL (0.0-0.2) Sodium Level 146 mmol/L (136-145) Potassium Level 3.4 mmol/L (3.5-5.1) Chloride Level 109 mmol/L (98-107) Carbon Dioxide Level 24 mmol/L (21-32) Anion Gap 13 (6-14) Blood Urea Nitrogen 34 mg/dL (8-26) Creatinine 2.0 mg/dL (0.7-1.3) Estimated GFR (Cockcroft-Gault) 32.1 BUN/Creatinine Ratio 17 (6-20) Glucose Level 58 mg/dL (70-99) Calcium Level 9.0 mg/dL (8.5-10.1) Total Bilirubin 0.4 mg/dL (0.2-1.0) Aspartate Amino Transf (AST/SGOT) 36 U/L (15-37) Alanine Aminotransferase (ALT/SGPT) 38 U/L (16-63) Alkaline Phosphatase 106 U/L (46-116) Total Protein 6.6 g/dL (6.4-8.2) Albumin 2.7 g/dL (3.4-5.0) Albumin/Globulin Ratio 0.7 (1.0-1.7) Microbiology 08/19/18 Blood Culture - Preliminary, Resulted NO GROWTH AFTER 1 DAY... 08/19/18 - Final, Resulted 08/19/18 - Final, Resulted 08/19/18 - Final, Resulted 08/19/18 - Final, Resulted 08/19/18 - Final, Resulted 08/19/18 - Final, Resulted 08/19/18 - Final, Resulted 08/19/18 Sputum Culture, Resulted Pending 08/19/18 Sputum Result 1, Resulted Pending Medications Current Medications Ceftriaxone Sodium 1 gm/ Sodium Chloride 50 ml @ 100 mls/hr 1X ONCE IV Last administered on 08/19/18at 14:53; Start 08/19/18 at 15:00; Stop 08/19/18 at 15:00; Status DC Sodium Chloride 50 ml @ As Directed STK-MED ONCE .ROUTE ; Start 08/19/18 at 14:45 ; Stop 08/19/18 at 14:46; Status DC Ceftriaxone Sodium (Rocephin) 1 gm STK-MED ONCE .ROUTE ; Start 08/19/18 at 14:45 ; Stop 08/19/18 at 14:46; Status DC Ceftriaxone Sodium 1 gm/ Sodium Chloride 50 ml @ 100 mls/hr 1X ONCE IV ; Start 08/19/18 at 15:00; Stop 08/19/18 at 15:00; Status DC Furosemide (Lasix) 40 mg 1X ONCE IVP Last administered on 08/19/18at 14:58; Start 08/19/18 at 15:00; Stop 08/19/18 at 15:01; Status DC Azithromycin 500 mg/Sodium Chloride 250 ml @ 250 mls/hr 1X ONCE IV Last administered on 08/19/18at 15:33; Start 08/19/18 at 15:15; Stop 08/19/18 at 16:14; Status DC Sodium Chloride 250 ml @ As Directed STK-MED ONCE .ROUTE ; Start 08/19/18 at 15: 24; Stop 08/19/18 at 15:25; Status DC Azithromycin (Zithromax) 500 mg STK-MED ONCE IV ; Start 08/19/18 at 15:24; Stop 08/19/18 at 15:25; Status DC Gabapentin (Neurontin) 100 mg BID PO Last administered on 08/21/18 08:10; Start 08/19/18 at 21:00 Insulin Glargine (Lantus) 17 units QHS SQ Last administered on 08/20/18at 20:35; Start 08/19/18 at 21:00 Aspirin (Children'S Aspirin) 81 mg DAILYWBKFT PO Last administered on 08/21/18at 08:10; Start 08/20/18 at 08:00 Atorvastatin Calcium (Lipitor) 80 mg QHS PO Last administered on 08/20/18at 19:51 ; Start 08/19/18 at 21:00 Cetirizine HCl (ZyrTEC) 10 mg DAILY PO Last administered on 08/21/18at 08:10; Start 08/20/18 at 09:00 Azithromycin 500 mg/Sodium Chloride 250 ml @ 250 mls/hr Q24H IV ; Start at 15:30; Stop 08/20/18 at 15:30; Status DC Ceftriaxone Sodium 1 gm/ Sodium Chloride 50 ml @ 100 mls/hr Q24H IV ; Start 08/19/18 at 18:45; Stop 08/19/18 at 18:45; Status DC Ceftriaxone Sodium 1 gm/ Sodium Chloride 50 ml @ 100 mls/hr Q24H IV Last administered on 08/20/18at 14:59; Start 08/20/18 at 15:00 Azithromycin (Zithromax) 250 mg DAILY PO ; Start 08/20/18 at 09:00; Stop 08/20/18 at 09:00; Status DC Dopamine HCl/ Dextrose 250 ml @ 6.226 mls/ hr CONT PRN IV SEE I/O RECORD; Start 08/19/18 at 19:00 Albuterol/ Ipratropium (Duoneb) 3 ml RTQID NEB Last administered on 08/21/18at 09 :02; Start 08/20/18 at 08:00 Albuterol/ Ipratropium (Duoneb) 3 ml STK-MED ONCE .ROUTE ; Start 08/20/18 at 05: 04; Stop 08/20/18 at 05:05; Status DC Lactobacillus Rhamnosus (Culturelle) 1 cap BID PO Last administered on at 08:10; Start 08/20/18 at 21:00 Lorazepam (Ativan) 0.5 mg PRN Q4HRS PRN IV ANXIETY / AGITATION Last administered on 08/20/18at 20:33; Start 08/20/18 at 09:45 Azithromycin (Zithromax) 500 mg Q24H PO Last administered on 08/20/18at 18:35; Start 08/20/18 at 17:00 Acetaminophen (Tylenol) 650 mg PRN Q6HRS PRN PO PAIN / TEMP Last administered on 08/20/18at 14:59; Start 08/20/18 at 15:00 Acetaminophen (Tylenol) 325 mg STK-MED ONCE PO ; Start 08/20/18 at 14:56; Stop at 14:57; Status DC Sodium Chloride 1,000 ml @ 100 mls/hr 1X ONCE IV Last administered on at 16:30; Start 08/20/18 at 16:30; Stop 08/21/18 at 02:30; Status DC Olanzapine (ZyPREXA ZYDIS) 5 mg PRN Q2HR PRN PO PSYCHOSIS Last administered on 08/20/18at 19:51; Start 08/20/18 at 19:15 Potassium Chloride (KCl Oral Soln) 40 meq 1X ONCE PO Last administered on 08:10; Start 08/21/18 at 07:45; Stop 08/21/18 at 07:46; Status DC Active Scripts Active Reported Keflex (Cephalexin) 500 Mg Capsule 1 Cap PO TID STOP DATE 08/21/18 Gabapentin (Gabapentin) 300 Mg Capsule 300 Mg PO HS Cetirizine Hcl 10 Mg Tablet 1 Tab PO DAILY PRN Novolog (Insulin Aspart) 100 Unit/1 Ml Cartridge 1 Unit SQ PRN PRN Lantus Solostar (Insulin Glargine,Hum.rec.anlog) 100 Unit/1 Ml Insuln.pen 17 Unit SQ QHS Aspirin 81 Mg Tab.chew 81 Mg PO DAILY Gabapentin 600 Mg Tablet 600 Mg PO QID Gabapentin (Gabapentin) 100 Mg Capsule 100 Mg PO TID Amlodipine Besylate 10 Mg Tablet 1 Tab PO DAILY Hydrochlorothiazide Tablet (Hydrochlorothiazide) 12.5 Mg Tablet 1 Tab PO DAILY Losartan Potassium 100 Mg Tablet 100 Mg PO DAILY Toprol Xl (Metoprolol Succinate) 25 Mg Tab.er.24h 12.5 Mg PO DAILY Loratadine 10 Mg Tablet 10 Mg PO DAILY Atorvastatin Calcium 80 Mg Tablet 80 Mg PO QHS Vitals/I & O Vital Sign - Last 24 Hours 08/20/18 08/20/18 08/20/18 08/20/18 12:00 13:00 14:00 15:00 Pulse 70 74 76 74 Resp 18 18 20 18 B/P (MAP) 115/44 (67) 119/58 (78) 106/46 (66) 124/56 (78) Pulse Ox 96 95 95 95 O2 Delivery Nasal Cannula Nasal Cannula Nasal Cannula Nasal Cannula O2 Flow Rate 2.0 2.0 2.0 2.0 08/20/18 08/20/18 08/20/18 08/20/18 15:13 16:00 17:00 18:00 Temp 98.9 Pulse 72 81 Resp 18 16 B/P (MAP) 116/54 (74) 133/55 (81) Pulse Ox 95 96 97 O2 Delivery Nasal Cannula Nasal Cannula Nasal Cannula Nasal Cannula O2 Flow Rate 3.0 2.0 2.0 2.0 08/20/18 08/20/18 08/20/18 08/20/18 19:00 19:23 20:05 20:19 Temp 98.5 Pulse 81 77 Resp 16 18 B/P (MAP) 133/48 (76) 117/56 (76) Pulse Ox 97 94 96 O2 Delivery Nasal Cannula Nasal Cannula Nasal Cannula Nasal Cannula O2 Flow Rate 2.0 2.0 2.0 3.0 08/20/18 08/20/18 08/20/18 08/20/18 21:10 22:04 23:24 23:30 Temp 98.9 Pulse 83 75 73 Resp 20 18 18 B/P (MAP) 125/51 (75) 129/49 (75) 116/46 (69) Pulse Ox 94 98 98 O2 Delivery Nasal Cannula Nasal Cannula Nasal Cannula Nasal Cannula O2 Flow Rate 2.0 2.0 2.0 2.0 08/21/18 08/21/18 08/21/18 08/21/18 00:19 01:05 02:15 03:13 Temp 98.2 Pulse 73 74 74 71 Resp 18 18 18 18 B/P (MAP) 118/48 (71) 119/50 (73) 114/48 (70) 119/55 (76) Pulse Ox 95 98 98 94 O2 Delivery Nasal Cannula Nasal Cannula Nasal Cannula Nasal Cannula O2 Flow Rate 2.0 2.0 2.0 2.0 08/21/18 08/21/18 08/21/18 08/21/18 04:02 04:03 05:06 05:55 Pulse 76 78 Resp 18 18 B/P (MAP) 137/58 (84) 122/57 (78) Pulse Ox 97 97 95 O2 Delivery Nasal Cannula Nasal Cannula Nasal Cannula Nasal Cannula O2 Flow Rate 2.0 2.0 2.0 3.0 08/21/18 08/21/18 08/21/18 08/21/18 06:05 07:36 08:30 09:56 Temp 98.0 Pulse 84 80 85 Resp 18 20 20 B/P (MAP) 134/57 (82) 115/58 (77) 131/75 (93) Pulse Ox 97 97 97 O2 Delivery Nasal Cannula Nasal Cannula Nasal Cannula Nasal Cannula O2 Flow Rate 2.0 2.0 2.0 2.0 08/21/18 11:18 Pulse 88 Resp 20 B/P (MAP) 126/54 (78) Pulse Ox 97 O2 Delivery Nasal Cannula O2 Flow Rate 2.0 Intake and Output 08/20/18 08/20/18 08/21/18 14:59 22:59 06:59 Intake Total 300 ml 230 ml 30 ml Output Total 900 ml 2100 ml Balance 300 ml -670 ml -2070 ml LEIDY GARCIA APRN Aug 21, 2018 11:53
[2018-08-21] MEDS: AA 3%/ELECTROLYTE-TPN SOLN/GLY 1,000 ML IV SCH (12:10)
[2018-08-21] MEDS ORDERED: AZITHROMYCIN 500 MG in IV NORMAL SALINE 250ML 250 ML IV SCH (17:00)
--- NOTE | 2018-08-21 19:00 | PDOC ---
Exam Note: Marquise Note: Please also refer to the separate dictated note~for this date of service dictated separately.~Patient seen individually. Discussed the patient with Nursing staff reviewed the chart.~Reviewed interim history and current functioning. Reviewed vital signs,~Labs/ Radiology~and current medications noted below. Continue current treatment with the changes noted in the dictated addendum note. This is a late entry for 08/20/18 Assessment: Vital Signs: Vital Signs Date Time Temp Pulse Resp B/P (MAP) Pulse Ox O2 Delivery O2 Flow Rate FiO2 08/21/18 16:48 98.2 08/21/18 15:13 94 Room Air 08/21/18 14:53 78 18 140/55 (83) 08/21/18 13:21 2.0 I&O Intake and Output 08/21/18 07:00 Intake Total 560 ml Output Total 3000 ml Balance -2440 ml Intake Oral 510 ml IV Total 50 ml Output Urine Total 3000 ml Labs: Laboratory Tests Test 08/20/18 20:21 08/21/18 05:30 08/21/18 07:36 08/21/18 11:23 Glucose (Fingerstick) 108 mg/dL (70-99) H 59 mg/dL (70-99) L 170 mg/dL (70-99) H White Blood Count 7.2 x10^3/uL (4.0-11.0) Red Blood Count 3.85 x10^6/uL (4.30-5.70) L Hemoglobin 10.8 g/dL (13.0-17.5) L Hematocrit 33.2 % (39.0-53.0) L Mean Corpuscular Volume 86 fL (79-100) Mean Corpuscular Hemoglobin 28 pg (25-35) Mean Corpuscular Hemoglobin Concent 33 g/dL (31-37) Red Cell Distribution Width 21.0 % (11.5-14.5) H Platelet Count 228 x10^3/uL (140-400) Neutrophils (%) (Auto) 72 % (31-73) Lymphocytes (%) (Auto) 14 % (24-48) L Monocytes (%) (Auto) 8 % (0-9) Eosinophils (%) (Auto) 6 % (0-3) H Basophils (%) (Auto) 0 % (0-3) Neutrophils # (Auto) 5.1 x10^3uL (1.8-7.7) Lymphocytes # (Auto) 1.0 x10^3/uL (1.0-4.8) Monocytes # (Auto) 0.6 x10^3/uL (0.0-1.1) Eosinophils # (Auto) 0.4 x10^3/uL (0.0-0.7) Basophils # (Auto) 0.0 x10^3/uL (0.0-0.2) Sodium Level 146 mmol/L (136-145) H Potassium Level 3.4 mmol/L (3.5-5.1) L Chloride Level 109 mmol/L (98-107) H Carbon Dioxide Level 24 mmol/L (21-32) Anion Gap 13 (6-14) Blood Urea Nitrogen 34 mg/dL (8-26) H Creatinine 2.0 mg/dL (0.7-1.3) H Estimated GFR (Cockcroft-Gault) 32.1 BUN/Creatinine Ratio 17 (6-20) Glucose Level 58 mg/dL (70-99) L Calcium Level 9.0 mg/dL (8.5-10.1) Total Bilirubin 0.4 mg/dL (0.2-1.0) Aspartate Amino Transferase (AST) 36 U/L (15-37) Alanine Aminotransferase (ALT) 38 U/L (16-63) Alkaline Phosphatase 106 U/L (46-116) Total Protein 6.6 g/dL (6.4-8.2) Albumin 2.7 g/dL (3.4-5.0) L Albumin/Globulin Ratio 0.7 (1.0-1.7) L Test 08/21/18 16:38 Glucose (Fingerstick) 155 mg/dL (70-99) H Current Medications: Meds: Current Medications Ceftriaxone Sodium 1 gm/ Sodium Chloride 50 ml @ 100 mls/hr 1X ONCE IV Last administered on 08/19/18at 14:53; Start 08/19/18 at 15:00; Stop 08/19/18 at 15:00; Status DC Sodium Chloride 50 ml @ As Directed STK-MED ONCE .ROUTE ; Start 08/19/18 at 14:45 ; Stop 08/19/18 at 14:46; Status DC Ceftriaxone Sodium (Rocephin) 1 gm STK-MED ONCE .ROUTE ; Start 08/19/18 at 14:45 ; Stop 08/19/18 at 14:46; Status DC Ceftriaxone Sodium 1 gm/ Sodium Chloride 50 ml @ 100 mls/hr 1X ONCE IV ; Start 08/19/18 at 15:00; Stop 08/19/18 at 15:00; Status DC Furosemide (Lasix) 40 mg 1X ONCE IVP Last administered on 08/19/18at 14:58; Start 08/19/18 at 15:00; Stop 08/19/18 at 15:01; Status DC Azithromycin 500 mg/Sodium Chloride 250 ml @ 250 mls/hr 1X ONCE IV Last administered on 08/19/18at 15:33; Start 08/19/18 at 15:15; Stop 08/19/18 at 16:14; Status DC Sodium Chloride 250 ml @ As Directed STK-MED ONCE .ROUTE ; Start 08/19/18 at 15: 24; Stop 08/19/18 at 15:25; Status DC Azithromycin (Zithromax) 500 mg STK-MED ONCE IV ; Start 08/19/18 at 15:24; Stop 08/19/18 at 15:25; Status DC Gabapentin (Neurontin) 100 mg BID PO Last administered on 08/21/18at 08:10; Start 08/19/18 at 21:00 Insulin Glargine (Lantus) 17 units QHS SQ Last administered on 08/20/18at 20:35; Start 08/19/18 at 21:00 Aspirin (Children'S Aspirin) 81 mg DAILYWBKFT PO Last administered on 08/21/18at 08:10; Start 08/20/18 at 08:00 Atorvastatin Calcium (Lipitor) 80 mg QHS PO Last administered on 08/20/18at 19:51 ; Start 08/19/18 at 21:00 Cetirizine HCl (ZyrTEC) 10 mg DAILY PO Last administered on 08/21/18at 08:10; Start 08/20/18 at 09:00 Azithromycin 500 mg/Sodium Chloride 250 ml @ 250 mls/hr Q24H IV ; Start at 15:30; Stop 08/20/18 at 15:30; Status DC Ceftriaxone Sodium 1 gm/ Sodium Chloride 50 ml @ 100 mls/hr Q24H IV ; Start 08/19/18 at 18:45; Stop 08/19/18 at 18:45; Status DC Ceftriaxone Sodium 1 gm/ Sodium Chloride 50 ml @ 100 mls/hr Q24H IV Last administered on 08/21/18at 15:29; Start 08/20/18 at 15:00 Azithromycin (Zithromax) 250 mg DAILY PO ; Start 08/20/18 at 09:00; Stop 08/20/18 at 09:00; Status DC Dopamine HCl/ Dextrose 250 ml @ 6.226 mls/ hr CONT PRN IV SEE I/O RECORD; Start 08/19/18 at 19:00 Albuterol/ Ipratropium (Duoneb) 3 ml RTQID NEB Last administered on 08/21/18at 15 :12; Start 08/20/18 at 08:00 Albuterol/ Ipratropium (Duoneb) 3 ml STK-MED ONCE .ROUTE ; Start 08/20/18 at 05: 04; Stop 08/20/18 at 05:05; Status DC Lactobacillus Rhamnosus (Culturelle) 1 cap BID PO Last administered on at 08:10; Start 08/20/18 at 21:00 Lorazepam (Ativan) 0.5 mg PRN Q4HRS PRN IV ANXIETY / AGITATION Last administered on 08/20/18at 20:33; Start 08/20/18 at 09:45 Azithromycin (Zithromax) 500 mg Q24H PO Last administered on 08/20/18at 18:35; Start 08/20/18 at 17:00; Stop 08/21/18 at 16:43; Status DC Acetaminophen (Tylenol) 650 mg PRN Q6HRS PRN PO PAIN / TEMP Last administered on 08/20/18at 14:59; Start 08/20/18 at 15:00 Acetaminophen (Tylenol) 325 mg STK-MED ONCE PO ; Start 08/20/18 at 14:56; Stop at 14:57; Status DC Sodium Chloride 1,000 ml @ 100 mls/hr 1X ONCE IV Last administered on at 16:30; Start 08/20/18 at 16:30; Stop 08/21/18 at 02:30; Status DC Olanzapine (ZyPREXA ZYDIS) 5 mg PRN Q2HR PRN PO PSYCHOSIS Last administered on 08/21/18at 15:29; Start 08/20/18 at 19:15; Stop 08/21/18 at 16:52; Status DC Potassium Chloride (KCl Oral Soln) 40 meq 1X ONCE PO Last administered on at 08:10; Start 08/21/18 at 07:45; Stop 08/21/18 at 07:46; Status DC Amino Acids/ Glycerin/ Electrolytes 1,000 ml @ 70 mls/hr [id number] IV Last administered on 08/21/18at 12:10; Start 08/21/18 at 11:45 Azithromycin 500 mg/Sodium Chloride 250 ml @ 250 mls/hr Q24H IV Last administered on 08/21/18at 17:08; Start 08/21/18 at 17:00 Olanzapine (ZyPREXA ZYDIS) 2.5 mg PRN Q2HR PRN PO PSYCHOSIS; Start 08/21/18 at 17:00 Active Scripts Active Reported Keflex (Cephalexin) 500 Mg Capsule 1 Cap PO TID STOP DATE 08/21/18 Gabapentin (Gabapentin) 300 Mg Capsule 300 Mg PO HS Cetirizine Hcl 10 Mg Tablet 1 Tab PO DAILY PRN Novolog (Insulin Aspart) 100 Unit/1 Ml Cartridge 1 Unit SQ PRN PRN Lantus Solostar (Insulin Glargine,Hum.rec.anlog) 100 Unit/1 Ml Insuln.pen 17 Unit SQ QHS Aspirin 81 Mg Tab.chew 81 Mg PO DAILY Gabapentin 600 Mg Tablet 600 Mg PO QID Gabapentin (Gabapentin) 100 Mg Capsule 100 Mg PO TID Amlodipine Besylate 10 Mg Tablet 1 Tab PO DAILY Hydrochlorothiazide Tablet (Hydrochlorothiazide) 12.5 Mg Tablet 1 Tab PO DAILY Losartan Potassium 100 Mg Tablet 100 Mg PO DAILY Toprol Xl (Metoprolol Succinate) 25 Mg Tab.er.24h 12.5 Mg PO DAILY Loratadine 10 Mg Tablet 10 Mg PO DAILY Atorvastatin Calcium 80 Mg Tablet 80 Mg PO QHS I have reviewed the current psychotropics carefully including drug interactions. Risk benefit ratio favors no change other than as noted in my dictated progress note. Diagnosis: Problems: (1) Anxiety disorder (2) Delirium due to general medical condition (3) Mild cognitive impairment (4) UTI (urinary tract infection) (5) Acute confusion JAMES WHITE MD Aug 21, 2018 19:00
--- NOTE | 2018-08-21 19:01 | PDOC ---
Exam Note: Marquise Note: Please also refer to the separate dictated note~for this date of service dictated separately.~Patient seen individually. Discussed the patient with Nursing staff reviewed the chart.~Reviewed interim history and current functioning. Reviewed vital signs,~Labs/ Radiology~and current medications noted below. Continue current treatment with the changes noted in the dictated addendum note Assessment: Vital Signs: Vital Signs Date Time Temp Pulse Resp B/P (MAP) Pulse Ox O2 Delivery O2 Flow Rate FiO2 08/21/18 16:48 98.2 08/21/18 15:13 94 Room Air 08/21/18 14:53 78 18 140/55 (83) 08/21/18 13:21 2.0 I&O Intake and Output 08/21/18 07:00 Intake Total 560 ml Output Total 3000 ml Balance -2440 ml Intake Oral 510 ml IV Total 50 ml Output Urine Total 3000 ml Labs: Laboratory Tests Test 08/20/18 20:21 08/21/18 05:30 08/21/18 07:36 08/21/18 11:23 Glucose (Fingerstick) 108 mg/dL (70-99) H 59 mg/dL (70-99) L 170 mg/dL (70-99) H White Blood Count 7.2 x10^3/uL (4.0-11.0) Red Blood Count 3.85 x10^6/uL (4.30-5.70) L Hemoglobin 10.8 g/dL (13.0-17.5) L Hematocrit 33.2 % (39.0-53.0) L Mean Corpuscular Volume 86 fL (79-100) Mean Corpuscular Hemoglobin 28 pg (25-35) Mean Corpuscular Hemoglobin Concent 33 g/dL (31-37) Red Cell Distribution Width 21.0 % (11.5-14.5) H Platelet Count 228 x10^3/uL (140-400) Neutrophils (%) (Auto) 72 % (31-73) Lymphocytes (%) (Auto) 14 % (24-48) L Monocytes (%) (Auto) 8 % (0-9) Eosinophils (%) (Auto) 6 % (0-3) H Basophils (%) (Auto) 0 % (0-3) Neutrophils # (Auto) 5.1 x10^3uL (1.8-7.7) Lymphocytes # (Auto) 1.0 x10^3/uL (1.0-4.8) Monocytes # (Auto) 0.6 x10^3/uL (0.0-1.1) Eosinophils # (Auto) 0.4 x10^3/uL (0.0-0.7) Basophils # (Auto) 0.0 x10^3/uL (0.0-0.2) Sodium Level 146 mmol/L (136-145) H Potassium Level 3.4 mmol/L (3.5-5.1) L Chloride Level 109 mmol/L (98-107) H Carbon Dioxide Level 24 mmol/L (21-32) Anion Gap 13 (6-14) Blood Urea Nitrogen 34 mg/dL (8-26) H Creatinine 2.0 mg/dL (0.7-1.3) H Estimated GFR (Cockcroft-Gault) 32.1 BUN/Creatinine Ratio 17 (6-20) Glucose Level 58 mg/dL (70-99) L Calcium Level 9.0 mg/dL (8.5-10.1) Total Bilirubin 0.4 mg/dL (0.2-1.0) Aspartate Amino Transferase (AST) 36 U/L (15-37) Alanine Aminotransferase (ALT) 38 U/L (16-63) Alkaline Phosphatase 106 U/L (46-116) Total Protein 6.6 g/dL (6.4-8.2) Albumin 2.7 g/dL (3.4-5.0) L Albumin/Globulin Ratio 0.7 (1.0-1.7) L Test 08/21/18 16:38 Glucose (Fingerstick) 155 mg/dL (70-99) H Current Medications: Meds: Current Medications Ceftriaxone Sodium 1 gm/ Sodium Chloride 50 ml @ 100 mls/hr 1X ONCE IV Last administered on 08/19/18at 14:53; Start 08/19/18 at 15:00; Stop 08/19/18 at 15:00; Status DC Sodium Chloride 50 ml @ As Directed STK-MED ONCE .ROUTE ; Start 08/19/18 at 14:45 ; Stop 08/19/18 at 14:46; Status DC Ceftriaxone Sodium (Rocephin) 1 gm STK-MED ONCE .ROUTE ; Start 08/19/18 at 14:45 ; Stop 08/19/18 at 14:46; Status DC Ceftriaxone Sodium 1 gm/ Sodium Chloride 50 ml @ 100 mls/hr 1X ONCE IV ; Start 08/19/18 at 15:00; Stop 08/19/18 at 15:00; Status DC Furosemide (Lasix) 40 mg 1X ONCE IVP Last administered on 08/19/18at 14:58; Start 08/19/18 at 15:00; Stop 08/19/18 at 15:01; Status DC Azithromycin 500 mg/Sodium Chloride 250 ml @ 250 mls/hr 1X ONCE IV Last administered on 08/19/18at 15:33; Start 08/19/18 at 15:15; Stop 08/19/18 at 16:14; Status DC Sodium Chloride 250 ml @ As Directed STK-MED ONCE .ROUTE ; Start 08/19/18 at 15: 24; Stop 08/19/18 at 15:25; Status DC Azithromycin (Zithromax) 500 mg STK-MED ONCE IV ; Start 08/19/18 at 15:24; Stop 08/19/18 at 15:25; Status DC Gabapentin (Neurontin) 100 mg BID PO Last administered on 08/21/18at 08:10; Start 08/19/18 at 21:00 Insulin Glargine (Lantus) 17 units QHS SQ Last administered on 08/20/18at 20:35; Start 08/19/18 at 21:00 Aspirin (Children'S Aspirin) 81 mg DAILYWBKFT PO Last administered on 08/21/18at 08:10; Start 08/20/18 at 08:00 Atorvastatin Calcium (Lipitor) 80 mg QHS PO Last administered on 08/20/18at 19:51 ; Start 08/19/18 at 21:00 Cetirizine HCl (ZyrTEC) 10 mg DAILY PO Last administered on 08/21/18at 08:10; Start 08/20/18 at 09:00 Azithromycin 500 mg/Sodium Chloride 250 ml @ 250 mls/hr Q24H IV ; Start at 15:30; Stop 08/20/18 at 15:30; Status DC Ceftriaxone Sodium 1 gm/ Sodium Chloride 50 ml @ 100 mls/hr Q24H IV ; Start 08/19/18 at 18:45; Stop 08/19/18 at 18:45; Status DC Ceftriaxone Sodium 1 gm/ Sodium Chloride 50 ml @ 100 mls/hr Q24H IV Last administered on 08/21/18 15:29; Start 08/20/18 at 15:00 Azithromycin (Zithromax) 250 mg DAILY PO ; Start 08/20/18 at 09:00; Stop 08/20/18 at 09:00; Status DC Dopamine HCl/ Dextrose 250 ml @ 6.226 mls/ hr CONT PRN IV SEE I/O RECORD; Start 08/19/18 at 19:00 Albuterol/ Ipratropium (Duoneb) 3 ml RTQID NEB Last administered on 08/21/18 15 :12; Start 08/20/18 at 08:00 Albuterol/ Ipratropium (Duoneb) 3 ml STK-MED ONCE .ROUTE ; Start 08/20/18 at 05: 04; Stop 08/20/18 at 05:05; Status DC Lactobacillus Rhamnosus (Culturelle) 1 cap BID PO Last administered on at 08:10; Start 08/20/18 at 21:00 Lorazepam (Ativan) 0.5 mg PRN Q4HRS PRN IV ANXIETY / AGITATION Last administered on 08/20/18 20:33; Start 08/20/18 at 09:45 Azithromycin (Zithromax) 500 mg Q24H PO Last administered on 08/20/18 18:35; Start 08/20/18 at 17:00; Stop 08/21/18 at 16:43; Status DC Acetaminophen (Tylenol) 650 mg PRN Q6HRS PRN PO PAIN / TEMP Last administered on 08/20/18 14:59; Start 08/20/18 at 15:00 Acetaminophen (Tylenol) 325 mg STK-MED ONCE PO ; Start 08/20/18 at 14:56; Stop at 14:57; Status DC Sodium Chloride 1,000 ml @ 100 mls/hr 1X ONCE IV Last administered on 16:30; Start 08/20/18 at 16:30; Stop 08/21/18 at 02:30; Status DC Olanzapine (ZyPREXA ZYDIS) 5 mg PRN Q2HR PRN PO PSYCHOSIS Last administered on 3/7/19at 15:29; Start 08/20/18 at 19:15; Stop 08/21/18 at 16:52; Status DC Potassium Chloride (KCl Oral Soln) 40 meq 1X ONCE PO Last administered on at 08:10; Start 08/21/18 at 07:45; Stop 08/21/18 at 07:46; Status DC Amino Acids/ Glycerin/ Electrolytes 1,000 ml @ 70 mls/hr [id number] IV Last administered on 08/21/18at 12:10; Start 08/21/18 at 11:45 Azithromycin 500 mg/Sodium Chloride 250 ml @ 250 mls/hr Q24H IV Last administered on 08/21/18at 17:08; Start 08/21/18 at 17:00 Olanzapine (ZyPREXA ZYDIS) 2.5 mg PRN Q2HR PRN PO PSYCHOSIS; Start 08/21/18 at 17:00 Active Scripts Active Reported Keflex (Cephalexin) 500 Mg Capsule 1 Cap PO TID STOP DATE 08/21/18 Gabapentin (Gabapentin) 300 Mg Capsule 300 Mg PO HS Cetirizine Hcl 10 Mg Tablet 1 Tab PO DAILY PRN Novolog (Insulin Aspart) 100 Unit/1 Ml Cartridge 1 Unit SQ PRN PRN Lantus Solostar (Insulin Glargine,Hum.rec.anlog) 100 Unit/1 Ml Insuln.pen 17 Unit SQ QHS Aspirin 81 Mg Tab.chew 81 Mg PO DAILY Gabapentin 600 Mg Tablet 600 Mg PO QID Gabapentin (Gabapentin) 100 Mg Capsule 100 Mg PO TID Amlodipine Besylate 10 Mg Tablet 1 Tab PO DAILY Hydrochlorothiazide Tablet (Hydrochlorothiazide) 12.5 Mg Tablet 1 Tab PO DAILY Losartan Potassium 100 Mg Tablet 100 Mg PO DAILY Toprol Xl (Metoprolol Succinate) 25 Mg Tab.er.24h 12.5 Mg PO DAILY Loratadine 10 Mg Tablet 10 Mg PO DAILY Atorvastatin Calcium 80 Mg Tablet 80 Mg PO QHS I have reviewed the current psychotropics carefully including drug interactions. Risk benefit ratio favors no change other than as noted in my dictated progress note. Diagnosis: Problems: (1) Delirium due to general medical condition (2) Mild cognitive impairment (3) Anxiety disorder (4) UTI (urinary tract infection) JAMES WHITE MD Aug 21, 2018 19:01
--- NOTE | 2018-08-21 20:06 | PN ---
DATE: 08/21/2018 SUBJECTIVE: The patient is sitting slightly propped up in bed, in a recliner, in no apparent distress. He is definitely more awake, alert, less confused than yesterday; however, he clearly has been having problem with swallowing and has apparently aspirated all consistencies. He was seen by the speech therapist, recommended keep him n.p.o. and to start him on IV fluid. She will arrange for him to have another swallowing evaluation tomorrow. PHYSICAL EXAMINATION: GENERAL: When I examined him, he looked somewhat pale, but no jaundice, cyanosis, or thyromegaly. No jugular venous distension. No lower limb edema. VITAL SIGNS: His heart rate was 78, blood pressure was 134/63, temperature was 98, respiratory rate was 18 and oxygen saturation was 97% on 2 liters of oxygen. HEAD, EYES, EARS, NOSE, AND THROAT: Showed normocephalic, atraumatic. NECK: Supple. HEART: Showed normal first and second heart sounds with no gallop or murmur. CHEST: Shows central trachea, equally reduced expansion, reduced air entry, vesicular sounds with bilateral basal crepitation. I could not appreciate any rhonchi. ABDOMEN: Scaphoid, soft, nontender. NEUROLOGIC: He is definitely more awake, alert today. All his cranial nerves are intact. He moves upper extremities to much good extent than lower extremities, mostly bed bound. 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 His intake over the last 24 hours was 490, output was 1500. LABORATORY DATA: As of this morning, his white cell count was down to 7200, hemoglobin 11, hematocrit 33, MCV 86 and platelet count of 228,000. His chemistry showed a serum sodium 146, potassium 3.4, chloride 109, bicarbonate 24, anion gap of 13, BUN 34, creatinine 2, estimated GFR was 32 mL per minute, his glucose was 58, calcium was 9. Total bilirubin, AST, ALT, alkaline phosphatase were normal. Total protein was 6.6, albumin 2.2. ASSESSMENT: 1. Altered mental status, improving. 2. Acute on chronic congestive heart failure. 3. Questionable community-acquired pneumonia. 4. Urinary tract infection. In fact, his urine culture has grown more than 100,000 colony forming units per mL of gram-negative rods, identification and sensitivity still pending at the time of this dictation. 5. Acute on chronic kidney injury. His creatinine came down from 2.3 to 2 this morning. 6. Hypothermia, resolved. He is normothermic today, his temperature today is 98. He has oropharyngeal dysphagia for which we kept him n.p.o. He was started on procalamine at 70 mL per hour. He will have his video swallowing evaluation scheduled tomorrow. Meanwhile, we will keep him n.p.o. for the time being. He has also mild hypernatremia and hypokalemia. We will repeat all his labs again tomorrow. PATY ZELAYA MD DR: DAYNA/favio JOB#: [id number] / [id number]
[2018-08-21] MEDS: ATORVASTATIN CALCIUM 20 MG TABLET PO SCH (20:08)
[2018-08-21] MEDS: INSULIN GLARGINE 300 UNITS/3 ML INSULN.PEN. SQ SCH (20:09)
[2018-08-22 03:12] VITALS: BP 144/61
--- NOTE | 2018-08-22 04:09 | CONS ---
DATE OF CONSULTATION: 08/20/2018 This late entry of 08/20/2018 covers elements not covered in my initial note. I met with the patient in the evening. IDENTIFYING DATA: The patient is an 83-year-old male referred by Dr. Morley and seen in ICU bed 1, for a psychiatric consult on account of his marked confusion, having "sundowning" with intermittent hallucinations, combative with cares. This is within the context of his hospitalization for pneumonia along with UTI and acute renal failure. The patient is seen individually, discussed with nursing staff, reviewed the chart, discussed with Dr. Morley as well. 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 I live at home with my . Yes, I know I am at [facility]. I have an infection." HISTORY OF PRESENT ILLNESS: As noted during my interview, the patient did appear more coherent than believed looking at his initial records. He has had repeated hospitalizations at this hospital and appears more confused in the evening. Nevertheless, he has been somewhat delirious consequent to his general medical condition. He has had sleep and appetite changes. No active suicidal or homicidal ideation. He does have short term memory deficits. No clear symptoms of bipolar disorder. PAST PSYCHIATRIC HISTORY: As above. PAST MEDICAL HISTORY: Type 2 diabetes mellitus, hypertension, hyperlipidemia, coronary artery disease, status post coronary artery bypass graft. He 8 years ago had a left below knee amputation, has tremors in his hands with possible Parkinson's other than essential tremors. PAST SURGICAL HISTORY: Positive for bilateral cataract extraction, tonsillectomy, cholecystectomy, left below knee amputation, colonoscopy x 2, placement of inferior vena cava catheter, and history of GI endoscopy. ALLERGIES: Negative. FAMILY HISTORY: No relevant family history for psychiatric problems. SOCIAL HISTORY: The patient has been . He has been with his for the past 60 years. He has 2 sons, 2 daughters. He quit smoking in 1988. He drinks alcohol occasionally. 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 Current psychotropics negative. FAMILY HISTORY: Noncontributory. MENTAL STATUS EXAM: The patient was seen individually in his room the evening of 08/20/2018. He knew the year was 2018 that he was at [facility]. He knew that the president was President Vanessa. He is somewhat distractible, anxious at times having intermittent hallucinations, but this is consistent with his delirium consequent to his general medical condition. Attention span short. Language function intact. Mood and affect somewhat anxious, labile. No suicidal or homicidal ideation. LABORATORY DATA: Reviewed. IMPRESSION: Delirium due to general medical condition versus major neurocognitive disorder; early Alzheimer, vascular with delusion, depression. Rest unchanged as above. PLAN: From a psychiatric standpoint, the patient seems to be having delirium due to general medical condition. We will add Zyprexa 2.5 mg q.2 hours p.r.n. psychosis, agitation, max 10 mg in 24 hours. I would not suggest any other changes. If symptoms persist despite resolution and stabilization of his medical condition, we will have to reassess this. Dr. Morley, thank you for the opportunity to participate in your patient's care. We will follow with you. MAN John WHITE MD DR: BUCK/favio JOB#: [id number] / [id number]
[2018-08-22] MEDS: AA 3%/ELECTROLYTE-TPN SOLN/GLY 1,000 ML IV SCH (04:28)
[2018-08-22] MEDS: IPRATRPIUM/ALBUTEROL 0.5/2.5MG 3 ML NEBU. NEB SCH ×3 (05:19→16:22)
[2018-08-22 05:32] VITALS: BP 149/81
[2018-08-22 06:24] LABS: HEMATOCRIT 36.4 % (39.0-53.0); HEMOGLOBIN 12.1 g/dL (13.0-17.5); RED BLOOD COUNT 4.27 x10^6/uL (4.30-5.70); RED CELL DISTRIBUTION WIDTH 20.4 % (11.5-14.5); WHITE BLOOD COUNT 9.2 x10^3/uL (4.0-11.0)
[2018-08-22 06:34] LABS: ALBUMIN 2.8 g/dL (3.4-5.0); ALBUMIN/GLOBULIN RATIO 0.7 (1.0-1.7); CALCIUM 9.2 mg/dL (8.5-10.1); CREATININE 1.5 mg/dL (0.7-1.3); GFR 44.8; POTASSIUM 4.2 mmol/L (3.5-5.1); TOTAL BILIRUBIN 0.4 mg/dL (0.2-1.0); TOTAL PROTEIN 6.6 g/dL (6.4-8.2)
[2018-08-22] MEDS: ASPIRIN 81 MG TAB.CHEW PO SCH (08:00)
[2018-08-22 08:04] VITALS: BP 157/64
[2018-08-22] MEDS: LACTOBACILLUS RHAMNOSUS GG 1 CAPSULE. PO SCH (08:25)
[2018-08-22] MEDS: GABAPENTIN 100 MG CAPSULE. PO SCH (08:25)
[2018-08-22] MEDS: CETIRIZINE HCL 10 MG TABLET PO SCH (08:25)
--- NOTE | 2018-08-22 08:42 | PDOC ---
PROGRESS NOTES Diagnosis Problem Problems Medical Problems: (1) CHF exacerbation Status: Acute (2) UTI (urinary tract infection) Status: Acute Assessment Problems Medical Problems: (1) CHF exacerbation Status: Acute (2) UTI (urinary tract infection) Status: Acute 1. Acute respiratory failure secondary pneumonia - abx per PCP. LV function remains normal. No overt heart failure by exam. Maintaining sao2 on 2 liters nasal cannula. 2. Altered mental status - he remains intermittently confused. Psych consulting. 3. 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 Currently with mild troponin elevation, demand related. No acute ischemic changes on EKG. Resume aspirin and low dose metoprolol when cleared for oral meds. Could start IV if needed. 4. acute renal failure on chronic kidney disease - baseline Cr between 1.1 and 1.5. Cr back to baseline currently. 5. UTI - mgmt per PCP 6. hypertension - blood pressure controlled currently. all antihypertensives on hold secondary to lower bp and now due to NPO status. 7. dysphagia - NPO pending video swallow today. 8. hyperlipidemia - lipids pending. 9. diabetes mellitus type 2 - per PCP 10. peripheral arterial disease s/p Left BKA - ? some cellulitis vs irritation from prosthetic. Mgmt per PCP Subjective denies chest pain or dyspnea, cough with copious sputum Objective Vital Signs Date Time Temp Pulse Resp B/P (MAP) Pulse Ox O2 Delivery O2 Flow Rate FiO2 08/22/18 08:04 103 157/64 (95) 08/22/18 08:01 Nasal Cannula 2.0 08/22/18 05:32 98.9 17 94 Intake and Output 08/22/18 06:59 Intake Total 2492 ml Output Total 2975 ml Balance -483 ml Intake Oral 200 ml IV Total 2292 ml Output Urine Total 2975 ml # Bowel Movements 1 Physical Exam General: Cooperative, No acute distress, confused. Lungs: Other (decreased bases with few right basilar crackles Heart: Normal S1, Normal S2, Other (no gallops, clicks or rubs, no obvious murmurs) Abdomen: Normal bowel sounds, Soft, No tenderness Extremities: Other (left BKA, trace right lower ext edema) left leg with erythema and warmth around stump and above knee laterally Review of Relevant I have reviewed the following items mckenzie (where applicable) has been applied. Labs Laboratory Tests Test 08/20/18 20:21 08/21/18 05:30 08/21/18 07:36 08/21/18 11:23 Glucose (Fingerstick) 108 mg/dL (70-99) 59 mg/dL (70-99) 170 mg/dL (70-99) White Blood Count 7.2 x10^3/uL (4.0-11.0) Red Blood Count 3.85 x10^6/uL (4.30-5.70) Hemoglobin 10.8 g/dL (13.0-17.5) Hematocrit 33.2 % (39.0-53.0) Mean Corpuscular Volume 86 fL (79-100) Mean Corpuscular Hemoglobin 28 pg (25-35) Mean Corpuscular Hemoglobin Concent 33 g/dL (31-37) Red Cell Distribution Width 21.0 % (11.5-14.5) Platelet Count 228 x10^3/uL (140-400) Neutrophils (%) (Auto) 72 % (31-73) Lymphocytes (%) (Auto) 14 % (24-48) Monocytes (%) (Auto) 8 % (0-9) Eosinophils (%) (Auto) 6 % (0-3) Basophils (%) (Auto) 0 % (0-3) Neutrophils # (Auto) 5.1 x10^3uL (1.8-7.7) Lymphocytes # (Auto) 1.0 x10^3/uL (1.0-4.8) Monocytes # (Auto) 0.6 x10^3/uL (0.0-1.1) Eosinophils # (Auto) 0.4 x10^3/uL (0.0-0.7) Basophils # (Auto) 0.0 x10^3/uL (0.0-0.2) Sodium Level 146 mmol/L (136-145) Potassium Level 3.4 mmol/L (3.5-5.1) Chloride Level 109 mmol/L (98-107) Carbon Dioxide Level 24 mmol/L (21-32) Anion Gap 13 (6-14) Blood Urea Nitrogen 34 mg/dL (8-26) Creatinine 2.0 mg/dL (0.7-1.3) Estimated GFR (Cockcroft-Gault) 32.1 BUN/Creatinine Ratio 17 (6-20) Glucose Level 58 mg/dL (70-99) Calcium Level 9.0 mg/dL (8.5-10.1) Total Bilirubin 0.4 mg/dL (0.2-1.0) Aspartate Amino Transf (AST/SGOT) 36 U/L (15-37) Alanine Aminotransferase (ALT/SGPT) 38 U/L (16-63) Alkaline Phosphatase 106 U/L (46-116) Total Protein 6.6 g/dL (6.4-8.2) Albumin 2.7 g/dL (3.4-5.0) Albumin/Globulin Ratio 0.7 (1.0-1.7) Test 08/21/18 16:38 08/21/18 20:04 08/22/18 05:53 08/22/18 07:19 Glucose (Fingerstick) 155 mg/dL (70-99) 152 mg/dL (70-99) 165 mg/dL (70-99) White Blood Count 9.2 x10^3/uL (4.0-11.0) Red Blood Count 4.27 x10^6/uL (4.30-5.70) Hemoglobin 12.1 g/dL (13.0-17.5) Hematocrit 36.4 % (39.0-53.0) Mean Corpuscular Volume 85 fL (79-100) Mean Corpuscular Hemoglobin 28 pg (25-35) Mean Corpuscular Hemoglobin Concent 33 g/dL (31-37) Red Cell Distribution Width 20.4 % (11.5-14.5) Platelet Count 255 x10^3/uL (140-400) Sodium Level 129 mmol/L (136-145) Potassium Level 4.2 mmol/L (3.5-5.1) Chloride Level 98 mmol/L (98-107) Carbon Dioxide Level 23 mmol/L (21-32) Anion Gap 8 (6-14) Blood Urea Nitrogen 28 mg/dL (8-26) Creatinine 1.5 mg/dL (0.7-1.3) Estimated GFR (Cockcroft-Gault) 44.8 BUN/Creatinine Ratio 19 (6-20) Glucose Level 182 mg/dL (70-99) Calcium Level 9.2 mg/dL (8.5-10.1) Total Bilirubin 0.4 mg/dL (0.2-1.0) Aspartate Amino Transf (AST/SGOT) 34 U/L (15-37) Alanine Aminotransferase (ALT/SGPT) 33 U/L (16-63) Alkaline Phosphatase 108 U/L (46-116) Total Protein 6.6 g/dL (6.4-8.2) Albumin 2.8 g/dL (3.4-5.0) Albumin/Globulin Ratio 0.7 (1.0-1.7) Microbiology 08/19/18 Blood Culture - Preliminary, Resulted NO GROWTH AFTER 2 DAYS... 08/19/18 - Final, Resulted 08/19/18 - Final, Resulted 08/19/18 - Final, Resulted 08/19/18 - Final, Resulted 08/19/18 - Final, Resulted 08/19/18 - Final, Resulted 08/19/18 - Final, Resulted 08/19/18 Sputum Culture, Resulted Pending 08/19/18 Sputum Result 1, Resulted Pending 08/19/18 Urine Culture - Preliminary, Resulted 08/19/18 Urine Culture Result 1 (LUZ) - Preliminary, Resulted Medications Current Medications Ceftriaxone Sodium 1 gm/ Sodium Chloride 50 ml @ 100 mls/hr 1X ONCE IV Last administered on 08/19/18at 14:53; Start 08/19/18 at 15:00; Stop 08/19/18 at 15:00; Status DC Sodium Chloride 50 ml @ As Directed STK-MED ONCE .ROUTE ; Start 08/19/18 at 14:45 ; Stop 08/19/18 at 14:46; Status DC Ceftriaxone Sodium (Rocephin) 1 gm STK-MED ONCE .ROUTE ; Start 08/19/18 at 14:45 ; Stop 08/19/18 at 14:46; Status DC Ceftriaxone Sodium 1 gm/ Sodium Chloride 50 ml @ 100 mls/hr 1X ONCE IV ; Start 08/19/18 at 15:00; Stop 08/19/18 at 15:00; Status DC Furosemide (Lasix) 40 mg 1X ONCE IVP Last administered on 08/19/18at 14:58; Start 08/19/18 at 15:00; Stop 08/19/18 at 15:01; Status DC Azithromycin 500 mg/Sodium Chloride 250 ml @ 250 mls/hr 1X ONCE IV Last administered on 08/19/18at 15:33; Start 08/19/18 at 15:15; Stop 08/19/18 at 16:14; Status DC Sodium Chloride 250 ml @ As Directed STK-MED ONCE .ROUTE ; Start 08/19/18 at 15: 24; Stop 08/19/18 at 15:25; Status DC Azithromycin (Zithromax) 500 mg STK-MED ONCE IV ; Start 08/19/18 at 15:24; Stop 08/19/18 at 15:25; Status DC Gabapentin (Neurontin) 100 mg BID PO Last administered on 08/21/18at 08:10; Start 08/19/18 at 21:00 Insulin Glargine (Lantus) 17 units QHS SQ Last administered on 08/20/18at 20:35; Start 08/19/18 at 21:00 Aspirin (Children'S Aspirin) 81 mg [id number] PO Last administered on 08/21/18at 08:10; Start 08/20/18 at 08:00 Atorvastatin Calcium (Lipitor) 80 mg QHS PO Last administered on 08/20/18at 19:51 ; Start 08/19/18 at 21:00 Cetirizine HCl (ZyrTEC) 10 mg DAILY PO Last administered on 08/21/18at 08:10; Start 08/20/18 at 09:00 Azithromycin 500 mg/Sodium Chloride 250 ml @ 250 mls/hr Q24H IV ; Start at 15:30; Stop 08/20/18 at 15:30; Status DC Ceftriaxone Sodium 1 gm/ Sodium Chloride 50 ml @ 100 mls/hr Q24H IV ; Start 08/19/18 at 18:45; Stop 08/19/18 at 18:45; Status DC Ceftriaxone Sodium 1 gm/ Sodium Chloride 50 ml @ 100 mls/hr Q24H IV Last administered on 08/21/18at 15:29; Start 08/20/18 at 15:00 Azithromycin (Zithromax) 250 mg DAILY PO ; Start 08/20/18 at 09:00; Stop 08/20/18 at 09:00; Status DC Dopamine HCl/ Dextrose 250 ml @ 6.226 mls/ hr CONT PRN IV SEE I/O RECORD; Start 08/19/18 at 19:00 Albuterol/ Ipratropium (Duoneb) 3 ml RTQID NEB Last administered on 08/22/18 05 :19; Start 08/20/18 at 08:00 Albuterol/ Ipratropium (Duoneb) 3 ml STK-MED ONCE .ROUTE ; Start 08/20/18 at 05: 04; Stop 08/20/18 at 05:05; Status DC Lactobacillus Rhamnosus (Culturelle) 1 cap BID PO Last administered on 08:10; Start 08/20/18 at 21:00 Lorazepam (Ativan) 0.5 mg PRN Q4HRS PRN IV ANXIETY / AGITATION Last administered on 08/21/18 22:33; Start 08/20/18 at 09:45 Azithromycin (Zithromax) 500 mg Q24H PO Last administered on 08/20/18 18:35; Start 08/20/18 at 17:00; Stop 08/21/18 at 16:43; Status DC Acetaminophen (Tylenol) 650 mg PRN Q6HRS PRN PO PAIN / TEMP Last administered on 08/20/18at 14:59; Start 08/20/18 at 15:00 Acetaminophen (Tylenol) 325 mg STK-MED ONCE PO ; Start 08/20/18 at 14:56; Stop at 14:57; Status DC Sodium Chloride 1,000 ml @ 100 mls/hr 1X ONCE IV Last administered on 16:30; Start 08/20/18 at 16:30; Stop 08/21/18 at 02:30; Status DC Olanzapine (ZyPREXA ZYDIS) 5 mg PRN Q2HR PRN PO PSYCHOSIS Last administered on 08/21/18 15:29; Start 08/20/18 at 19:15; Stop 08/21/18 at 16:52; Status DC Potassium Chloride (KCl Oral Soln) 40 meq 1X ONCE PO Last administered on 08:10; Start 08/21/18 at 07:45; Stop 08/21/18 at 07:46; Status DC Amino Acids/ Glycerin/ Electrolytes 1,000 ml @ 70 mls/hr [id number] IV Last administered on 08/22/18 04:28; Start 08/21/18 at 11:45 Azithromycin 500 mg/Sodium Chloride 250 ml @ 250 mls/hr Q24H IV Last administered on 08/21/18at 17:08; Start 08/21/18 at 17:00 Olanzapine (ZyPREXA ZYDIS) 2.5 mg PRN Q2HR PRN PO PSYCHOSIS Last administered on 08/21/18at 20:11; Start 08/21/18 at 17:00 Active Scripts Active Reported Keflex (Cephalexin) 500 Mg Capsule 1 Cap PO TID STOP DATE 08/21/18 Gabapentin (Gabapentin) 300 Mg Capsule 300 Mg PO HS Cetirizine Hcl 10 Mg Tablet 1 Tab PO DAILY PRN Novolog (Insulin Aspart) 100 Unit/1 Ml Cartridge 1 Unit SQ PRN PRN Lantus Solostar (Insulin Glargine,Hum.rec.anlog) 100 Unit/1 Ml Insuln.pen 17 Unit SQ QHS Aspirin 81 Mg Tab.chew 81 Mg PO DAILY Gabapentin 600 Mg Tablet 600 Mg PO QID Gabapentin (Gabapentin) 100 Mg Capsule 100 Mg PO TID Amlodipine Besylate 10 Mg Tablet 1 Tab PO DAILY Hydrochlorothiazide Tablet (Hydrochlorothiazide) 12.5 Mg Tablet 1 Tab PO DAILY Losartan Potassium 100 Mg Tablet 100 Mg PO DAILY Toprol Xl (Metoprolol Succinate) 25 Mg Tab.er.24h 12.5 Mg PO DAILY Loratadine 10 Mg Tablet 10 Mg PO DAILY Atorvastatin Calcium 80 Mg Tablet 80 Mg PO QHS Vitals/I & O Vital Sign - Last 24 Hours 08/21/18 08/21/18 08/21/18 08/21/18 09:56 11:18 12:22 12:23 Pulse 85 88 78 Resp B/P (MAP) 131/75 (93) 126/54 (78) 134/63 (86) Pulse Ox 97 97 97 O2 Delivery Nasal Cannula Nasal Cannula Nasal Cannula Nasal Cannula O2 Flow Rate 2.0 2.0 2.0 2.0 08/21/18 08/21/18 08/21/18 08/21/18 13:21 14:53 15:13 16:48 Temp 98.2 Pulse 82 78 Resp 18 B/P (MAP) 134/62 (86) 140/55 (83) Pulse Ox 96 95 94 O2 Delivery Nasal Cannula Room Air Room Air O2 Flow Rate 2.0 08/21/18 08/21/18 08/21/18 08/21/18 19:12 19:25 20:25 23:13 Temp 98.6 98.8 Pulse 91 92 Resp 18 20 B/P (MAP) 156/83 (107) 145/63 (90) Pulse Ox 94 94 95 O2 Delivery Room Air Nasal Cannula Room Air Room Air O2 Flow Rate 2.0 08/22/18 08/22/18 08/22/18 08/22/18 03:12 05:20 05:32 08:01 Temp 98.9 Pulse 97 100 Resp 20 17 B/P (MAP) 144/61 (88) 149/81 (103) Pulse Ox 94 94 O2 Delivery Room Air Room Air Room Air Nasal Cannula O2 Flow Rate 2.0 08/22/18 08:04 Pulse 103 B/P (MAP) 157/64 (95) Intake and Output 08/21/18 08/21/18 08/22/18 14:59 22:59 06:59 Intake Total 1200 ml 300 ml 992 ml Output Total 500 ml 1125 ml 1350 ml Balance 700 ml -825 ml -358 ml LEIDY GARCIA [employer] Aug 22, 2018 08:42
[2018-08-22 09:09] LABS: C REACTIVE PROTEIN 98.7 mg/L (0-3.3); URIC ACID 5.1 mg/dL (3.5-7.2)
--- NOTE | 2018-08-22 12:11 | RAD ---
Video swallow 08/22/2018 Clinical History: Dysphagia. Aspiration. Technique: A video swallow study was performed in conjunction with the department of speech pathology. The patient was given a series of swallowing trials using varying consistencies of barium under fluoroscopic control. The total fluoroscopic time for this study was 2 minutes. A single lateral digital spot radiograph of the cervical spine was obtained. . Findings: The patient demonstrates significant aspiration throughout the study Impression: Significant aspiration. Electronically signed by: Nick Lemons MD (08/22/2018 12:08 PM) [id number]
[2018-08-22 12:12] VITALS: BP 171/64
[2018-08-22] MEDS ORDERED: ACETAMINOPHEN 650 MG SUPP.RECT. PR PRN (15:00)
--- NOTE | 2018-08-22 19:33 | PN ---
DATE: 08/21/2018 PSYCHIATRIC PROGRESS NOTE This late entry 08/21/2018 covers elements not covered in my initial note. SUBJECTIVE: I met with the patient in the evening ICU bed 1 and discussed with nursing staff. Overall, the patient continues to be somewhat delirious, more so and confused in the evening. Bedside swallow was completed and recommendation is to be n.p.o. Zyprexa was given prior to this, but question is how to web site administrator it at this time with the n.p.o. status. REVIEW OF SYSTEMS: Positive for weakness. Impaired ambulation. No CV, , pulmonary, eye system symptoms on review. MENTAL STATUS EXAM: Oriented to himself and situation. Speech has some latency. He is pleasant, very appreciative of the visit. Denied active hallucinations. Knew he was at [facility] and vague idea about why he was here. Attention span short. Language function intact. No suicidal or homicidal ideation. IMPRESSION: Delirium due to general medical condition, rule out major neurocognitive disorder, early with delusion, delirium. Rest unchanged. PLAN: Change the Zyprexa to Zyprexa Zydis sublingual, it can be put on sponge and rubbed under his upper lips to be absorbed sublingually and will not interfere with problems consequent to his swallowing. I would like to avoid any intramuscular psychotropics for now. Rest unchanged. MAN John WHITE MD DR: BUCK/favio JOB#: [id number] / [id number]
--- NOTE | 2018-08-26 12:12 | EKG ---
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
--- NOTE | 2018-09-18 15:57 | DS ---
DATE OF DISCHARGE: 08/22/2018 HOSPITAL COURSE: The patient is an 83-year-old male patient who came to the Emergency Room with altered mental status, has been more drowsy and difficult to arouse for the last 2 days. His family tells me that he is not as alert as he normally is. He is speaking more slowly and has some slurring of his words. He answers questions appropriately. He has not exhibited any focal weakness, has had no fever at home. Denied any chills, chest pain or discomfort. He was found to be extremely hypoxic with oxygen saturation of only 70%. He was extensively investigated in the Emergency Room. His chest x-ray showed extensive infiltrate and/or edema in the perihilar basilar region. In particular, more focal dense consolidation or effusion in the left lung base. His temperature on arrival was normal; however, by the time he arrived to the ICU, he was hypothermic with a temperature of 94 and therefore he was started on Gisell Hugger. LABORATORY DATA: Showed that his white cell count was slightly elevated; however, his influenza A and B were negative. His chemistry showed that he has acute kidney injury. His creatinine has dramatically risen to 2.4 from his most recent admission of 1.1. He was started on IV antibiotic in the form of ceftriaxone and Zithromax. He was noted to be aspirating, so had had swallowing evaluation and this showed that the patient is basically aspirating all consistencies. We have had a discussion with his son and that the patient is a very high risk for aspiration and aspirating all consistencies and his son and his opted for hospice care and the patient was discharged home with hospice. PHYSICAL EXAMINATION: GENERAL: On the day of discharge, the patient was extremely pale, cachectic, but no jaundice, cyanosis, or thyromegaly. No jugular venous distension. No limb edema. VITAL SIGNS: Her heart rate was 100, blood pressure 171/64, temperature was 98.9, respiratory rate was 17 and oxygen saturation was 95% on room air. HEAD, EYES, EARS, NOSE AND THROAT: Showed normocephalic, atraumatic. NECK: Supple. HEART: Showed normal first and second heart sounds with no gallop, rub or murmur. CHEST: Clear to auscultation. No crepitation or rhonchi. ABDOMEN: Distended, soft, nontender. NEUROLOGIC: He is extremely encephalopathic; however, all his cranial nerves are intact. He moves his upper extremities without difficulty, has left below knee amputation. 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 DISCHARGE MEDICATIONS: He was basically discharged home on hospice. FINAL DISCHARGE DIAGNOSES: 1. Altered mental status. 2. Oextw-qm-xggeuab congestive heart failure. 3. Aspiration pneumonia. 4. Urinary tract infection. 5. Rosqv-oy-nrxtweg kidney injury. 6. Hypothermia. 7. Severe oropharyngeal dysphagia. PATY ZELAYA MD DR: DAYNA/favio JOB#: [id number] / [id number]
== END 2018-08-22 20:00 | disposition hospice, home (50) | DRG 682 ==
LOC: ER 11:03 → 1 SOUTH 15:30 → ICU 16:55
PROVIDERS: ADMIT Internal Medicine; ATTEND Internal Medicine
DX: N17.9 Acute kidney failure, unspecified (principal); J18.9 Pneumonia, unspecified organism; J96.01 Acute respiratory failure with hypoxia; I13.0 Hypertensive heart and chronic kidney disease with heart failure and stage 1 through stage 4 chronic kidney disease, or unspecified chronic kidney disease; N39.0 Urinary tract infection, site not specified; E87.0 Hyperosmolality and hypernatremia; F05 Delirium due to known physiological condition; R65.10 Systemic inflammatory response syndrome (SIRS) of non-infectious origin without acute organ dysfunction; I50.9 Heart failure, unspecified; N18.9 Chronic kidney disease, unspecified; E11.22 Type 2 diabetes mellitus with diabetic chronic kidney disease; R13.12 Dysphagia, oropharyngeal phase; E11.51 Type 2 diabetes mellitus with diabetic peripheral angiopathy without gangrene; E78.00 Pure hypercholesterolemia, unspecified; E78.5 Hyperlipidemia, unspecified; E86.0 Dehydration; E87.6 Hypokalemia; F41.9 Anxiety disorder, unspecified; G30.9 Alzheimer's disease, unspecified; F02.80 Dementia in other diseases classified elsewhere, unspecified severity, without behavioral disturbance, psychotic disturbance, mood disturbance, and anxiety; F32.9 Major depressive disorder, single episode, unspecified; I25.10 Atherosclerotic heart disease of native coronary artery without angina pectoris; I48.91 Unspecified atrial fibrillation; Z82.49 Family history of ischemic heart disease and other diseases of the circulatory system; Z86.711 Personal history of pulmonary embolism; Z87.891 Personal history of nicotine dependence; Z89.512 Acquired absence of left leg below knee; Z79.899 Other long term (current) drug therapy; Z95.1 Presence of aortocoronary bypass graft; Z95.828 Presence of other vascular implants and grafts; Z98.41 Cataract extraction status, right eye; Z98.42 Cataract extraction status, left eye; Z90.49 Acquired absence of other specified parts of digestive tract
CPT/HCPCS: 36415; 70450; 71045; 71250; 74230; 80053; 80061; 81001; 82947; 83605; 83880; 84443; 84484; 84550; 85025; 85027; 85651; 86140; 87040; 87070; 87086; 87186; 87205; 87641; 87804; 92526; 93005; 93306; 94640; 96365; 96367; 96375; J0456; J0696; J1815; J1940; J2060; J3490; J7050; J7620; 92610; 92611; 97530; 99285-25; J7030